=== PATIENT | male | born 1970 | race Caucasian/White ===

== ENCOUNTER 2017-10-12 10:15 | Emergency (ER) | payer MEDICARE, MEDICAID ==
[~2017-10-12] VITALS: Ht 198.1 cm; Wt 107.4 kg
[~2017-10-12 10:15] MED LIST: NO HOME MEDS
[2017-10-12 10:17] VITALS: BP 127/81
== END 2017-10-12 10:46 | disposition home or self-care (01) ==
LOC: ER 10:15
DX: T23.012D Burn of unspecified degree of left thumb (nail), subsequent encounter (principal); T31.0 Burns involving less than 10% of body surface; K12.0 Recurrent oral aphthae; F12.10 Cannabis abuse, uncomplicated; F15.10 Other stimulant abuse, uncomplicated; F14.10 Cocaine abuse, uncomplicated; F11.10 Opioid abuse, uncomplicated; Z59.0 Homelessness; X08.8XXD Exposure to other specified smoke, fire and flames, subsequent encounter
CPT/HCPCS: 99281

== ENCOUNTER 2018-01-05 14:38 | Emergency (ER) | payer MEDICARE, MEDICAID ==
[~2018-01-05] VITALS: Ht 686.1 cm; Wt 100.0 kg
[2018-01-05 15:35] LABS: BASOPHILS % (AUTO) 0.5 % (0-1); EOSINOPHILS # (AUTO) 0.4 X10'3 (0-0.9); HEMATOCRIT 43.5 % (42.0-52.0); HEMOGLOBIN 15.1 g/dl (14.0-17.9); LYMPHOCYTES # (AUTO) 2.1 X10'3 (1.1-4.8); LYMPHOCYTES % (AUTO) 23.9 % (21-51); MEAN CORPUSCULAR HEMOGLOBIN 30.4 PG (27.0-31.0); MEAN CORPUSCULAR HGB CONC 34.7 % (33.0-36.5); MEAN CORPUSCULAR VOLUME 87.6 FL (78-98); MEAN PLATELET VOLUME 7.4 FL (7.4-10.4); MONOCYTES # (AUTO) 0.6 X10'3 (0-0.9); MONOCYTES % (AUTO) 6.8 % (2-12); NEUTROPHILS # (AUTO) 5.8 X10'3 (1.8-7.7); NEUTROPHILS % (AUTO) 64.8 % (42-75); PLATELET COUNT 325 X10'3 (140-440); RED BLOOD COUNT 4.97 X10'6 (4.70-6.10); RED CELL DISTRIBUTION WIDTH 14.5 % (11.5-14.5)
[2018-01-05 15:38] LABS: ALANINE AMINOTRANSFERASE 32 U/L (12-78); ALBUMIN 3.8 G/DL (3.4-5.0); ALBUMIN/GLOBULIN RATIO 1.3 (1.1-1.5); ALKALINE PHOSPHATASE 51 IU/L (46-116); ANION GAP 5 (8-16); ASPARTATE AMINO TRANSFERASE 16 U/L (10-37); BILIRUBIN,TOTAL 0.5 MG/DL (0.1-1.0); BLOOD UREA NITROGEN 22 MG/DL (7-18); BUN/CREATININE RATIO 22.4 (5.4-32.0); CALCIUM 8.5 MG/DL (8.5-10.1); CHLORIDE 104 MMOL/L (99-107); CREATININE 0.98 MG/DL (0.60-1.10); ETHANOL < 0.010 GM/DL (0.0-0.010); GLUCOSE 116 MG/DL (70-104); POTASSIUM 3.5 MMOL/L (3.5-5.1); SODIUM 138 MMOL/L (135-145); TOTAL CARBON DIOXIDE 28.7 MMOL/L (24-32); TOTAL PROTEIN 6.8 G/DL (6.4-8.2); eGFR 82 ML/MIN
[2018-01-05 16:31] LABS: URINE AMPHETAMINE SCREEN POSITIVE (Neg); URINE BARBITUATE SCREEN NEGATIVE (Neg); URINE BENZODIAZEPINES SCREEN NEGATIVE (Neg); URINE CANNABINOID SCREEN POSITIVE (Neg); URINE COCAINE SCREEN NEGATIVE (Neg); URINE METHADONE SCREEN NEGATIVE (Neg); URINE OPIATE SCREEN NEGATIVE (Neg); URINE PHENCYCLIDINE SCREEN NEGATIVE (Neg)
[2018-01-06] MEDS: diazepam 5mg tablet PO SCH ×2 (16:51→20:15)
[2018-01-07] MEDS: diazepam 5mg tablet PO SCH ×2 (08:14→13:00)
[2018-01-07] MEDS ORDERED: nicotine 21mg patch - 24 hr TD ONE (08:45)
[2018-01-07 19:45] VITALS: BP 109/71
== END 2018-01-07 19:49 ==
LOC: ER 14:39
DX: F41.9 Anxiety disorder, unspecified (principal); F31.9 Bipolar disorder, unspecified; R45.851 Suicidal ideations; F12.90 Cannabis use, unspecified, uncomplicated; F15.90 Other stimulant use, unspecified, uncomplicated; F14.90 Cocaine use, unspecified, uncomplicated; F11.90 Opioid use, unspecified, uncomplicated; Z59.0 Homelessness
CPT/HCPCS: 36415; 80053; 80305; 80320; 85025; 99285

== ENCOUNTER 2018-05-11 18:30 | Emergency (ER) | payer MEDICARE, MEDICAID ==
[~2018-05-11] VITALS: Ht 198.1 cm; Wt 9.6 kg
[2018-05-11 18:41] VITALS: BP 139/84
== END 2018-05-11 19:46 | disposition home or self-care (01) ==
LOC: ER 18:30
DX: R45.851 Suicidal ideations (principal); F41.9 Anxiety disorder, unspecified; F31.9 Bipolar disorder, unspecified; F12.90 Cannabis use, unspecified, uncomplicated; F15.90 Other stimulant use, unspecified, uncomplicated; F11.90 Opioid use, unspecified, uncomplicated; F14.90 Cocaine use, unspecified, uncomplicated; Z59.0 Homelessness
CPT/HCPCS: 99284

== ENCOUNTER 2018-06-26 15:22 | Emergency (ER) | payer MEDICARE, MEDICAID ==
[~2018-06-26] VITALS: Ht 195.6 cm; Wt 95.4 kg
[2018-06-26] MEDS ORDERED: LORA0.5T PO (16:01)
[2018-06-26] MEDS ORDERED: AMPH20CA11 PO (16:01)
[2018-06-26 16:10] LABS: BASOPHILS # (AUTO) 0.1 X10'3 (0-0.2); BASOPHILS % (AUTO) 0.6 % (0-1); EOSINOPHILS # (AUTO) 0.1 X10'3 (0-0.9); EOSINOPHILS % (AUTO) 1.5 % (0-6); HEMATOCRIT 42.2 % (42.0-52.0); HEMOGLOBIN 14.1 g/dl (14.0-17.9); LYMPHOCYTES # (AUTO) 1.8 X10'3 (1.1-4.8); LYMPHOCYTES % (AUTO) 18.4 % (21-51); MEAN CORPUSCULAR HEMOGLOBIN 29.6 PG (27.0-31.0); MEAN CORPUSCULAR HGB CONC 33.5 % (33.0-36.5); MEAN CORPUSCULAR VOLUME 88.4 FL (78-98); MEAN PLATELET VOLUME 7.3 FL (7.4-10.4); MONOCYTES # (AUTO) 0.4 X10'3 (0-0.9); MONOCYTES % (AUTO) 4.3 % (2-12); NEUTROPHILS # (AUTO) 7.3 X10'3 (1.8-7.7); NEUTROPHILS % (AUTO) 75.2 % (42-75); PLATELET COUNT 430 X10'3 (140-440); RED BLOOD COUNT 4.78 X10'6 (4.70-6.10); RED CELL DISTRIBUTION WIDTH 13.6 % (11.5-14.5); WHITE BLOOD COUNT 9.7 X10'3 (4.5-11.0)
[2018-06-26 16:20] LABS: ALANINE AMINOTRANSFERASE 32 U/L (12-78); ALBUMIN 3.6 G/DL (3.4-5.0); ALBUMIN/GLOBULIN RATIO 1.1 (1.1-1.5); ALKALINE PHOSPHATASE 65 IU/L (46-116); ANION GAP 9 (8-16); ASPARTATE AMINO TRANSFERASE 19 U/L (10-37); BILIRUBIN,TOTAL 0.3 MG/DL (0.1-1.0); BLOOD UREA NITROGEN 14 MG/DL (7-18); BUN/CREATININE RATIO 20.6 (5.4-32.0); CALCIUM 8.2 MG/DL (8.5-10.1); CHLORIDE 103 MMOL/L (99-107); CREATININE 0.68 MG/DL (0.60-1.10); GLUCOSE 104 MG/DL (70-104); POTASSIUM 3.8 MMOL/L (3.5-5.1); SODIUM 139 MMOL/L (135-145); TOTAL CARBON DIOXIDE 26.7 MMOL/L (24-32); TOTAL PROTEIN 6.9 G/DL (6.4-8.2); eGFR > 90 ML/MIN
[2018-06-26 16:24] LABS: CLARITY,URINE CLEAR (Clear); COLOR,URINE YELLOW (Yellow); GLUCOSE, URINE NEGATIVE (Neg); KETONES,URINE NEGATIVE (Neg); LEUKOCYTE ESTERASE ,URINE NEGATIVE (Neg); NITRITES, URINE NEGATIVE (Neg); OCCULT BLOOD,URINE TRACE-INTACT (Neg); PROTEIN,URINE NEGATIVE (Neg); UROBILINOGEN,URINE 0.2 E.U/dL (0.2-1.0)
[2018-06-26 16:26] LABS: URINE AMPHETAMINE SCREEN NEGATIVE (Neg); URINE BARBITUATE SCREEN NEGATIVE (Neg); URINE BENZODIAZEPINES SCREEN NEGATIVE (Neg); URINE CANNABINOID SCREEN POSITIVE (Neg); URINE COCAINE SCREEN NEGATIVE (Neg); URINE METHADONE SCREEN NEGATIVE (Neg); URINE OPIATE SCREEN NEGATIVE (Neg); URINE PHENCYCLIDINE SCREEN NEGATIVE (Neg)
[2018-06-26 16:28] LABS: UA COLLECTION TYPE CLN CATCH MIDSTREAM
[2018-06-26 16:30] LABS: BACTERIA,URINE NONE SEEN /HPF (Neg); RBC,URINE NONE SEEN /HPF (0-2); SQUAMOUS EPITHELIAL CELL,UR FEW /LPF (FEW); WBC,URINE 0-4 /HPF (0-4)
[2018-06-26 16:30] LABS: ETHANOL < 0.010 GM/DL (0.0-0.010)
--- NOTE | 2018-06-26 17:03 | NUR ---
Telepsych evaluating patient.
[2018-06-26] MEDS: LORazepam 0.5 MG tablet PO PRN (17:11)
--- NOTE | 2018-06-26 17:18 | NUR ---
Patient tearful and states he just wants to leave and kill himself. RN gave patient an Ativan to help calm him. Telepsych Doc called RN and is recommending placement on 5150. Continue to monitor.
[2018-06-26 17:22] VITALS: BP 148/96
[2018-06-26] MEDS ORDERED: ziprasidone IM 20mg inj **IM only IM PRN (17:40)
[2018-06-26] MEDS: LORazepam 1 MG tablet PO PRN (19:27)
--- NOTE | 2018-06-26 19:35 | NUR ---
pt anxious and unable to sleep. ativan 2mg po given
--- NOTE | 2018-06-26 20:53 | NUR ---
CONCHIS FROM [facility] CALLED. PT WILL BE ADMITTED UP STAIRS AND TO PLEASE DISCHARGE IN ER. ALSO, ADVISE THE PATIENT WILL NOT BE GETTING ATIVAN REGULARLY AND WILL BE TRYING OTHER MEDS.
--- NOTE | 2018-06-26 20:55 | NUR ---
EXPLAINED TO PATIENT WILL BE ADMITTED UP STAIRS TO [facility]. ALSO WILL BE TAPERING OFF ATIVAN AND GIVING OTHER MEDS. PT STATED, "ok". TOOK IT WELL, PT CALM
--- NOTE | 2018-06-26 20:57 | NUR ---
Client to be admitted to [facility] for suicidal ideation per Dr. Rizzo.
== END 2018-06-26 21:01 ==
LOC: ER 15:22
DX: R45.851 Suicidal ideations (principal); F31.9 Bipolar disorder, unspecified; F15.10 Other stimulant abuse, uncomplicated; F41.9 Anxiety disorder, unspecified; F12.90 Cannabis use, unspecified, uncomplicated; F14.90 Cocaine use, unspecified, uncomplicated; F11.90 Opioid use, unspecified, uncomplicated; Z59.0 Homelessness; Z79.899 Other long term (current) drug therapy
CPT/HCPCS: 36415; 80053; 80305; 80320; 81001; 84443; 85025; 99285

== ENCOUNTER 2018-06-26 20:45 | Inpatient (IN) | payer MEDICARE, MEDICAID | END 2018-07-07 12:25 | disposition still patient (30) | LOC: ADULT MH 06-29 16:55 | DX: R45.851 Suicidal ideations (principal); F32.9 Major depressive disorder, single episode, unspecified ==

== ENCOUNTER 2018-07-14 18:09 | Emergency (ER) | payer MEDICARE, MEDICAID ==
[~2018-07-14] VITALS: Ht 198.1 cm; Wt 101.3 kg
[~2018-07-14 18:09] MED LIST changes: +HYDR-3686 PO; +LURA20TA PO; -NO HOME MEDS; +TRAZ-218 PO
[2018-07-14 19:25] LABS: URINE AMPHETAMINE SCREEN POSITIVE (Neg); URINE BARBITUATE SCREEN NEGATIVE (Neg); URINE BENZODIAZEPINES SCREEN NEGATIVE (Neg); URINE CANNABINOID SCREEN NEGATIVE (Neg); URINE COCAINE SCREEN NEGATIVE (Neg); URINE METHADONE SCREEN NEGATIVE (Neg); URINE OPIATE SCREEN NEGATIVE (Neg); URINE PHENCYCLIDINE SCREEN NEGATIVE (Neg)
[2018-07-14 19:34] LABS: BASOPHILS % (AUTO) 0.3 % (0-1); EOSINOPHILS # (AUTO) 0.2 X10'3 (0-0.9); EOSINOPHILS % (AUTO) 1.6 % (0-6); HEMATOCRIT 42.3 % (42.0-52.0); HEMOGLOBIN 14.5 g/dl (14.0-17.9); LYMPHOCYTES # (AUTO) 1.2 X10'3 (1.1-4.8); LYMPHOCYTES % (AUTO) 10.6 % (21-51); MEAN CORPUSCULAR HGB CONC 34.3 % (33.0-36.5); MEAN CORPUSCULAR VOLUME 87.6 FL (78-98); MEAN PLATELET VOLUME 7.2 FL (7.4-10.4); MONOCYTES # (AUTO) 0.7 X10'3 (0-0.9); MONOCYTES % (AUTO) 6.2 % (2-12); NEUTROPHILS # (AUTO) 9.5 X10'3 (1.8-7.7); NEUTROPHILS % (AUTO) 81.3 % (42-75); PLATELET COUNT 363 X10'3 (140-440); RED BLOOD COUNT 4.84 X10'6 (4.70-6.10); RED CELL DISTRIBUTION WIDTH 15.1 % (11.5-14.5); WHITE BLOOD COUNT 11.7 X10'3 (4.5-11.0)
[2018-07-14 19:37] LABS: ALANINE AMINOTRANSFERASE 52 U/L (12-78); ALBUMIN 4.1 G/DL (3.4-5.0); ALBUMIN/GLOBULIN RATIO 1.1 (1.1-1.5); ALKALINE PHOSPHATASE 64 IU/L (46-116); ANION GAP 12 (8-16); ASPARTATE AMINO TRANSFERASE 50 U/L (10-37); BILIRUBIN,TOTAL 0.9 MG/DL (0.1-1.0); BLOOD UREA NITROGEN 13 MG/DL (7-18); BUN/CREATININE RATIO 15.5 (5.4-32.0); CALCIUM 9.2 MG/DL (8.5-10.1); CHLORIDE 100 MMOL/L (99-107); CREATININE 0.84 MG/DL (0.60-1.10); ETHANOL < 0.010 GM/DL (0.0-0.010); GLUCOSE 98 MG/DL (70-104); POTASSIUM 3.6 MMOL/L (3.5-5.1); SODIUM 139 MMOL/L (135-145); TOTAL PROTEIN 7.7 G/DL (6.4-8.2); eGFR > 90 ML/MIN
--- NOTE | 2018-07-14 19:48 | NUR ---
PT upto restroom 8x in first hour of shift. When asked about it, PT begins talking about how "he's not a bad tulio and doesn't want to go to [facility] for selling his meds." PT admits to taking too many Aderall and is up to the RR to masterbate because Aderall makes him "horny". PT observed rubbing nose constantly. When asked about it, PT states; "I fucking hate it."
--- NOTE | 2018-07-14 20:00 | NUR ---
ALL ASSESSMENTS DONE ON PT, NOT ABLE TO DOCUMENT UNTIL LATER TIME.
[2018-07-14] MEDS ORDERED: TRAZ300T2 PO (20:07)
[2018-07-14] MEDS ORDERED: LURA40TA3 PO (20:09)
[2018-07-14] MEDS ORDERED: LURA60TA2 PO (20:09)
[2018-07-14] MEDS ORDERED: HYDR-3686 PO (20:10)
[2018-07-14] MEDS ORDERED: hydrOXYzine 25 MG tablet PO PRN (20:20)
[2018-07-14] MEDS ORDERED: traZODone 150mg tablet PO SCH (21:00)
[2018-07-14] MEDS ORDERED: lurasidone 20mg tablet PO SCH (21:00)
[2018-07-14] MEDS ORDERED: lurasidone 60mg tablet PO SCH (21:00)
--- NOTE | 2018-07-14 21:53 | NUR ---
[facility] contacted for telepsych. Telepsych camera 1 set up awaiting call from [facility].
--- NOTE | 2018-07-14 21:54 | NUR ---
PT VERY PARANOID WHILE GIVING HS MEDS, WANTED TO "THINK ABOUT IT". FEELING IF STAFF WAS GOING TO POISION HIM AND FEELING VERY PARANOID. EXPLAINED THAT MEDS WERE HIS USUAL HS MED AND THEY WOULD HELP WITH THE PARANOIA. ALSO EXPLAINED THAT HE IS HERE TO KEEP HIMSELF SAFE AND THAT HIS REGULAR MEDS WOULD HELP HIM SLEEP TONIGHT. ADMITTED TO TAKING TOO MUCH OF HIS ADDERALL TODAY.
--- NOTE | 2018-07-14 22:01 | NUR ---
Packet sent to [facility].
[2018-07-14] MEDS ORDERED: diphenhydrAMINE 50 mg/ml inj IM ONE (22:10)
[2018-07-14] MEDS ORDERED: OLANZapine **IM** 10 mg inj. IM ONE (22:10)
[2018-07-14] MEDS ORDERED: LORazepam 2 mg/ml vial IM ONE (22:10)
[2018-07-14] MEDS ORDERED: diphenhydrAMINE 50 mg/ml inj ONE (22:12)
--- NOTE | 2018-07-14 22:26 | NUR ---
PT CONTINUING TO BE PARANOID, FEELS LIKE STAFF IS GOING TO HURT HIM. WANDERING IN DEPT AND DISRUPTING OTHER PTS. ORDERS RECEIVED FROM DR ROME FOR AGGITATION.
[2018-07-14 23:08] LABS: CLARITY,URINE CLEAR (Clear); COLOR,URINE YELLOW (Yellow); GLUCOSE, URINE NEGATIVE (Neg); KETONES,URINE NEGATIVE (Neg); LEUKOCYTE ESTERASE ,URINE NEGATIVE (Neg); NITRITES, URINE NEGATIVE (Neg); OCCULT BLOOD,URINE MODERATE (Neg); PH,URINE 6.5 (4.8-8.0); PROTEIN,URINE TRACE mg/dl (Neg); UA COLLECTION TYPE CLN CATCH MIDSTREAM; UROBILINOGEN,URINE 0.2 E.U/dL (0.2-1.0)
[2018-07-14 23:20] LABS: BACTERIA,URINE NONE SEEN /HPF (Neg); MUCUS STRANDS MODERATE /LPF (Neg); SPERM MODERATE /HPF (NEGATIVE); SQUAMOUS EPITHELIAL CELL,UR NONE SEEN /LPF (FEW); WBC,URINE 0-4 /HPF (0-4)
--- NOTE | 2018-07-15 00:01 | NUR ---
ATARAX GIVEN FOR CONTINUED AGGITATION, HAS TO BE CONSTANTLY REDIRECTED TO GO BACK TO BED.
--- NOTE | 2018-07-15 01:06 | NUR ---
TELE PSYCH IN PROCESS.
--- NOTE | 2018-07-15 02:03 | NUR ---
TELE PSYCH MD RECOMMENDS DC, PLAN TO DC IN AM AFTER BREAKFAST DUE TO MEDS GIVEN EARLIER IN EVENING.
--- NOTE | 2018-07-15 02:46 | NUR ---
PT NOW SLEEPING.
--- NOTE | 2018-07-15 07:00 | NUR ---
Pt lying in bed, appears to be sleeping.
--- NOTE | 2018-07-15 08:38 | NUR ---
Pt has discharge orders, he is endorsing active SI, states that he will kill himself when he leaves, he will cut himself with a razor blade, ER notified, he will come and reassess the pt.
--- NOTE | 2018-07-15 09:03 | NUR ---
Pt is now stating that he is not going to kill himself, that he wants to leave and go do some dope and have some fun then go stay at the [facility]. Had a conversation with the patient about the wisdom of his choices, he states that if his symptoms come back, if he feels worse (becomes suicidal again) he will return to the ER.
--- NOTE | 2018-07-15 09:05 | NUR ---
Notifed ER MD of pt's current statements and desire to be discharged.
--- NOTE | 2018-07-15 09:15 | NUR ---
Pt discharged, provided with a bus pass, a sack lunch, discharge paperwork with list of community resources, pt had warm clothes of his own, all belongings and meds returned, escorted out of the building by security.
[2018-07-15 09:22] VITALS: BP 106/64
== END 2018-07-15 09:15 | disposition home or self-care (01) ==
LOC: ER 18:09
DX: R45.851 Suicidal ideations (principal); Z76.5 Malingerer [conscious simulation]; F41.9 Anxiety disorder, unspecified; F31.9 Bipolar disorder, unspecified; F12.90 Cannabis use, unspecified, uncomplicated; F15.90 Other stimulant use, unspecified, uncomplicated; F14.90 Cocaine use, unspecified, uncomplicated; F11.90 Opioid use, unspecified, uncomplicated; Z79.899 Other long term (current) drug therapy; Z59.0 Homelessness
CPT/HCPCS: 36415; 80053; 80305; 80320; 81001; 85025; 96372; 99284; J1200; J2060; Q0177

== ENCOUNTER 2018-07-15 14:02 | Emergency (ER) | payer MEDICARE, MEDICAID ==
[~2018-07-15] VITALS: Ht 198.1 cm; Wt 100.0 kg
[~2018-07-15 14:02] MED LIST changes: -LURA20TA PO; +LURA40TA3 PO; +LURA60TA2 PO; -TRAZ-218 PO; +TRAZ300T2 PO
[2018-07-15 14:14] VITALS: BP 114/70
--- NOTE | 2018-07-15 14:29 | NUR ---
ATTEMPTED TO CALL PATIENT BACK FOR EKG AND PATIENT WAS NOT IN LOBBY
--- NOTE | 2018-07-15 14:48 | NUR ---
Called pt for EKG again but not in lobby.
== END 2018-07-15 15:20 | disposition home or self-care (01) ==
LOC: ER 14:03
DX: F15.10 Other stimulant abuse, uncomplicated (principal); R07.89 Other chest pain; F12.90 Cannabis use, unspecified, uncomplicated; F14.90 Cocaine use, unspecified, uncomplicated; F11.90 Opioid use, unspecified, uncomplicated; Z79.899 Other long term (current) drug therapy; Z59.0 Homelessness
CPT/HCPCS: 93005; 99283

== ENCOUNTER 2018-09-29 09:29 | Emergency (ER) | payer MEDICARE, MEDICAID ==
[~2018-09-29] VITALS: Ht 198.1 cm; Wt 117.3 kg
--- NOTE | 2018-09-29 09:56 | NUR ---
patient placed in a bed and put into green scrubs, urine sample requested and given by patient. Patient appears stable and calm at the moment
[2018-09-29 10:22] LABS: CLARITY,URINE CLEAR (Clear); COLOR,URINE YELLOW (Yellow); GLUCOSE, URINE NEGATIVE (Neg); KETONES,URINE NEGATIVE (Neg); LEUKOCYTE ESTERASE ,URINE NEGATIVE (Neg); NITRITES, URINE NEGATIVE (Neg); OCCULT BLOOD,URINE NEGATIVE (Neg); PROTEIN,URINE NEGATIVE (Neg); UA COLLECTION TYPE CLN CATCH MIDSTREAM; UROBILINOGEN,URINE 0.2 E.U/dL (0.2-1.0)
[2018-09-29 10:43] LABS: URINE AMPHETAMINE SCREEN NEGATIVE (Neg); URINE BARBITUATE SCREEN NEGATIVE (Neg); URINE BENZODIAZEPINES SCREEN POSITIVE (Neg); URINE CANNABINOID SCREEN NEGATIVE (Neg); URINE COCAINE SCREEN NEGATIVE (Neg); URINE METHADONE SCREEN NEGATIVE (Neg); URINE OPIATE SCREEN NEGATIVE (Neg); URINE PHENCYCLIDINE SCREEN NEGATIVE (Neg)
[2018-09-29 11:11] LABS: BASOPHILS % (AUTO) 0.6 % (0-1); EOSINOPHILS # (AUTO) 0.2 X10'3 (0-0.9); HEMATOCRIT 43.4 % (42.0-52.0); HEMOGLOBIN 14.3 g/dl (14.0-17.9); LYMPHOCYTES # (AUTO) 1.8 X10'3 (1.1-4.8); LYMPHOCYTES % (AUTO) 21.6 % (21-51); MEAN CORPUSCULAR HEMOGLOBIN 29.5 PG (27.0-31.0); MEAN CORPUSCULAR VOLUME 89.4 FL (78-98); MEAN PLATELET VOLUME 6.9 FL (7.4-10.4); MONOCYTES # (AUTO) 0.6 X10'3 (0-0.9); MONOCYTES % (AUTO) 7.7 % (2-12); NEUTROPHILS # (AUTO) 5.5 X10'3 (1.8-7.7); NEUTROPHILS % (AUTO) 67.1 % (42-75); PLATELET COUNT 316 X10'3 (140-440); RED BLOOD COUNT 4.86 X10'6 (4.70-6.10); RED CELL DISTRIBUTION WIDTH 14.3 % (11.5-14.5); WHITE BLOOD COUNT 8.1 X10'3 (4.5-11.0)
[2018-09-29 11:27] LABS: ALANINE AMINOTRANSFERASE 37 U/L (12-78); ALBUMIN 3.5 G/DL (3.4-5.0); ALBUMIN/GLOBULIN RATIO 1.2 (1.1-1.5); ALKALINE PHOSPHATASE 47 IU/L (46-116); ANION GAP 4 (8-16); ASPARTATE AMINO TRANSFERASE 16 U/L (10-37); BILIRUBIN,TOTAL 0.3 MG/DL (0.1-1.0); BLOOD UREA NITROGEN 13 MG/DL (7-18); BUN/CREATININE RATIO 13.7 (5.4-32.0); CALCIUM 8.8 MG/DL (8.5-10.1); CHLORIDE 107 MMOL/L (99-107); CREATININE 0.95 MG/DL (0.60-1.10); GLUCOSE 88 MG/DL (70-104); POTASSIUM 4.1 MMOL/L (3.5-5.1); SODIUM 141 MMOL/L (135-145); TOTAL CARBON DIOXIDE 29.7 MMOL/L (24-32); TOTAL PROTEIN 6.4 G/DL (6.4-8.2); eGFR 85 ML/MIN
[2018-09-29 11:36] LABS: ETHANOL < 0.010 GM/DL (0.0-0.010)
[2018-09-29] MEDS ORDERED: LORA2TAB PO (13:55)
[2018-09-29] MEDS ORDERED: LITH600C PO (13:55)
[2018-09-29] MEDS ORDERED: RISP2TAB3 PO (13:55)
[2018-09-29] MEDS ORDERED: LITH150C8 PO (13:55)
[2018-09-29] MEDS ORDERED: TRAZ-219 PO (13:55)
[2018-09-29] MEDS ORDERED: HYDR-3686 PO (13:55)
[2018-09-29] MEDS ORDERED: VAL5T PO ×2 (13:55)
[2018-09-29] MEDS ORDERED: VILA40TA PO (13:58)
[2018-09-29] MEDS ORDERED: LITH300C PO (14:02)
[2018-09-29] MEDS ORDERED: BENZ1TAB7 PO (14:02)
[2018-09-29 17:33] VITALS: BP 127/80
== END 2018-09-29 17:55 | disposition home or self-care (01) ==
LOC: ER 09:29
DX: T42.4X2A Poisoning by benzodiazepines, intentional self-harm, initial encounter (principal); F41.9 Anxiety disorder, unspecified; F32.9 Major depressive disorder, single episode, unspecified; F12.10 Cannabis abuse, uncomplicated; F15.10 Other stimulant abuse, uncomplicated; Z59.0 Homelessness; Y92.89 Other specified places as the place of occurrence of the external cause
CPT/HCPCS: 36415; 80053; 80305; 80320; 81003; 84443; 85025; 99284

== ENCOUNTER 2018-10-23 15:18 | Emergency (ER) | payer MEDICARE, MEDICAID ==
[~2018-10-23] VITALS: Ht 198.1 cm; Wt 93.0 kg
[~2018-10-23 15:18] MED LIST changes: +BENZ1TAB7 PO; +LITH150C8 PO; +LITH300C PO; +LORA2TAB PO; -LURA40TA3 PO; -LURA60TA2 PO; +RISP2TAB3 PO; +TRAZ-219 PO; -TRAZ300T2 PO; +VAL5T PO; +VILA40TA PO
[2018-10-23 15:22] VITALS: BP 117/81
== END 2018-10-23 16:28 | disposition left against medical advice (07) ==
LOC: ER 15:18
DX: F10.129 Alcohol abuse with intoxication, unspecified (principal); F31.9 Bipolar disorder, unspecified; F41.9 Anxiety disorder, unspecified; F12.90 Cannabis use, unspecified, uncomplicated; F15.90 Other stimulant use, unspecified, uncomplicated; F11.90 Opioid use, unspecified, uncomplicated; Z59.0 Homelessness; Z79.899 Other long term (current) drug therapy
CPT/HCPCS: 99283

== ENCOUNTER 2019-02-05 10:16 | Emergency (ER) | payer MEDICARE, MEDICAID | END 2019-02-05 11:33 | disposition left against medical advice (07) | LOC: ER 10:17 | DX: Z00.8 Encounter for other general examination (principal); Z53.21 Procedure and treatment not carried out due to patient leaving prior to being seen by health care provider ==

== ENCOUNTER 2019-02-05 20:20 | Emergency (ER) | payer MEDICARE, MEDICAID | END 2019-02-05 21:03 | disposition left against medical advice (07) | LOC: ER 20:21 | DX: R45.851 Suicidal ideations (principal); Z53.21 Procedure and treatment not carried out due to patient leaving prior to being seen by health care provider ==

== ENCOUNTER 2019-02-06 18:11 | Emergency (ER) | payer MEDICARE, MEDICAID ==
[~2019-02-06] VITALS: Ht 195.6 cm; Wt 100.9 kg
[2019-02-06 18:31] VITALS: BP 124/80
== END 2019-02-06 20:42 | disposition left against medical advice (07) ==
LOC: ER 18:12
DX: R45.851 Suicidal ideations (principal); Z53.21 Procedure and treatment not carried out due to patient leaving prior to being seen by health care provider

== ENCOUNTER 2019-02-06 21:01 | Emergency (ER) | payer MEDICARE, MEDICAID ==
[~2019-02-06] VITALS: Ht 195.6 cm; Wt 94.0 kg
--- NOTE | 2019-02-06 21:14 | NUR ---
ROBBY FERRIS CONCERNED THAT THIS IS HIS 3RD OR 4TH VISIT FOR MENTAL HEALTH EXAM AND OR SI. ROBBY FERRIS SUGGESTED [facility] BE CALLED TO PICK HIM UP; I DEFERED HIM TO THE SERVICE PROMOTER SALESPERSON ELSA. NO TRIAGE WAS DONE; THE PATIENT IS ASSIGNED A LEVEL 5
--- NOTE | 2019-02-06 21:14 | NUR ---
PT CHECKED INTO ED REGISTRATION AND IMMEDIATELY LEFT THE HOSPITAL BEFORE TRIAGE. I CONTACTED [facility] AND ASKED THEM TO SEND AN ALERT OUT TO OFFICERS TO LOOK OUT FOR HIM DUE TO HIS COUNSELOR SENDING HIM TO THE ED WITH CONCERNS FOR HIS MENTAL HEALTH AND RECENTLY DRUG USE.
--- NOTE | 2019-02-06 21:34 | NUR ---
HE SAID HIS COUNSELOR MADE HIM COME IN, PT DENIES SI OR HI.
[2019-02-06 21:52] LABS: BASOPHILS # (AUTO) 0.1 X10'3 (0-0.2); BASOPHILS % (AUTO) 0.7 % (0-1); EOSINOPHILS # (AUTO) 0.2 X10'3 (0-0.9); EOSINOPHILS % (AUTO) 1.5 % (0-6); HEMATOCRIT 41.6 % (42.0-52.0); HEMOGLOBIN 14.2 g/dl (14.0-17.9); LYMPHOCYTES # (AUTO) 2.2 X10'3 (1.1-4.8); LYMPHOCYTES % (AUTO) 22.3 % (21-51); MEAN CORPUSCULAR HEMOGLOBIN 30.2 PG (27.0-31.0); MEAN CORPUSCULAR VOLUME 88.8 FL (78-98); MEAN PLATELET VOLUME 7.3 FL (7.4-10.4); MONOCYTES # (AUTO) 0.7 X10'3 (0-0.9); MONOCYTES % (AUTO) 6.8 % (2-12); NEUTROPHILS # (AUTO) 6.8 X10'3 (1.8-7.7); NEUTROPHILS % (AUTO) 68.7 % (42-75); PLATELET COUNT 411 X10'3 (140-440); RED BLOOD COUNT 4.69 X10'6 (4.70-6.10); RED CELL DISTRIBUTION WIDTH 14.5 % (11.5-14.5); WHITE BLOOD COUNT 9.9 X10'3 (4.5-11.0)
[2019-02-06 22:10] LABS: ALANINE AMINOTRANSFERASE 31 U/L (12-78); ALBUMIN 3.9 G/DL (3.4-5.0); ALBUMIN/GLOBULIN RATIO 1.2 (1.1-1.5); ALKALINE PHOSPHATASE 56 IU/L (46-116); ANION GAP 7 (8-16); ASPARTATE AMINO TRANSFERASE 25 U/L (10-37); BILIRUBIN,TOTAL 0.6 MG/DL (0.1-1.0); BLOOD UREA NITROGEN 16 MG/DL (7-18); BUN/CREATININE RATIO 16.7 (5.4-32.0); CALCIUM 8.5 MG/DL (8.5-10.1); CHLORIDE 107 MMOL/L (99-107); CREATININE 0.96 MG/DL (0.60-1.10); ETHANOL < 0.010 GM/DL (0.0-0.010); GLUCOSE 97 MG/DL (70-104); SODIUM 143 MMOL/L (135-145); TOTAL CARBON DIOXIDE 28.7 MMOL/L (24-32); TOTAL PROTEIN 7.1 G/DL (6.4-8.2); eGFR 84 ML/MIN
[2019-02-06 22:13] LABS: POTASSIUM 2.9 MMOL/L (3.5-5.1)
[2019-02-06] MEDS ORDERED: potassium Cl 20 mEq SR tablet PO STA (22:14)
--- NOTE | 2019-02-06 22:26 | NUR ---
PT USING RESTROOM AT THIS TIME.
--- NOTE | 2019-02-07 | NUR ---
Patient moved from ED14 to ED8, patient resting comfortably at this time.
--- NOTE | 2019-02-07 00:45 | NUR ---
Patient given sandwich, grahm crackers and juice at this time
--- NOTE | 2019-02-07 01:30 | NUR ---
Patient resting comfortably at this time in direct site of nursing staff
--- NOTE | 2019-02-07 02:30 | NUR ---
Patient continues to rest comfortably in direct site of nursing staff
--- NOTE | 2019-02-07 03:30 | NUR ---
Patient resting comfortably, in direct site of nursing staff
[2019-02-07] MEDS: LORazepam 1 MG tablet PO PRN ×3 (04:29→18:57)
--- NOTE | 2019-02-07 04:31 | NUR ---
Patient requesting Ativan because he is "tripping the fuck out". Given 1mg Ativan PO per MD order at this time. While administering medication patient asked "Meth is bad huh?" Patient educated to negative affects of methamphetamine.
--- NOTE | 2019-02-07 05:30 | NUR ---
Patient resting comfortably at this time
--- NOTE | 2019-02-07 06:43 | NUR ---
ATTEMPTED TO COLLECT URINE SAMPLE FOR UA WITH NO SUCCESS. PT. OFFERED WATER AT THIS TIME.
--- NOTE | 2019-02-07 07:45 | NUR ---
URINE SAMPLE COLLECTED AT 0730 FOR UA. PT. CURRENTLY IN BED, RESTING.
[2019-02-07 07:54] LABS: URINE AMPHETAMINE SCREEN POSITIVE (Neg); URINE BARBITUATE SCREEN NEGATIVE (Neg); URINE BENZODIAZEPINES SCREEN NEGATIVE (Neg); URINE CANNABINOID SCREEN NEGATIVE (Neg); URINE COCAINE SCREEN NEGATIVE (Neg); URINE METHADONE SCREEN NEGATIVE (Neg); URINE OPIATE SCREEN NEGATIVE (Neg); URINE PHENCYCLIDINE SCREEN NEGATIVE (Neg)
[2019-02-07 07:57] LABS: CLARITY,URINE CLEAR (Clear); COLOR,URINE YELLOW (Yellow); GLUCOSE, URINE NEGATIVE (Neg); KETONES,URINE NEGATIVE (Neg); LEUKOCYTE ESTERASE ,URINE SMALL (Neg); NITRITES, URINE NEGATIVE (Neg); OCCULT BLOOD,URINE TRACE-INTACT (Neg); PROTEIN,URINE NEGATIVE (Neg)
[2019-02-07 07:58] LABS: UA COLLECTION TYPE CLN CATCH MIDSTREAM
[2019-02-07 08:08] LABS: BACTERIA,URINE FEW /HPF (Neg); MUCUS STRANDS MODERATE /LPF (Neg); RBC,URINE 0-2 /HPF (0-2); SQUAMOUS EPITHELIAL CELL,UR MODERATE /LPF (FEW)
--- NOTE | 2019-02-07 08:20 | NUR ---
PACKET FAXED TO [facility]
--- NOTE | 2019-02-07 08:52 | NUR ---
PT. CONTINUES TO REST IN [facility].
--- NOTE | 2019-02-07 09:24 | NUR ---
PT. EATING BREAKFAST AT THIS TIME.
--- NOTE | 2019-02-07 09:48 | NUR ---
CALLED AND SPOKE WITH RIYA WITH [facility], SHE ASKED TO HAVE [facility] EVALUATE THE PATIENT.
--- NOTE | 2019-02-07 10:58 | NUR ---
PT RESTING ON RIGHT SIDE EYES CLOSED RR EQUAL AND UNLABORED
--- NOTE | 2019-02-07 12:33 | NUR ---
PT UP TO USE RESTROOM AT THIS TIME.NO DISTRESS NOTED.WILL CONT TO MONITOR.
--- NOTE | 2019-02-07 12:45 | NUR ---
PT CAME TO NURSING STATION AND ASKED FOR ANXIETY MEDS ,PT SAID HE IS GOING TO FREAK OUT IF MED IS NOT GIVEN.PT LOOK ANXIOUS GET UP FROM BED GO TO RESTROOM COME BACK QUICKLY TO BED AND STAY UP IN BED.
--- NOTE | 2019-02-07 13:14 | NUR ---
PT HAS FINISHED HIS LUNCH,MED GIVEN BY LAWANDA OROURKE,NO DISTRESS NOTED ,WILL CONT TO MONITOR.
--- NOTE | 2019-02-07 14:29 | NUR ---
[facility] STAFF WRITER AT BEDSIDE TO EVALUATE THE PT.
--- NOTE | 2019-02-07 14:30 | NUR ---
PT MED REC DONE TAKEN TO DR MONTEJO TO REVIEW AND ALSO INFORMED THAT PT DOES NOT WANT TO TAKE ANY OF THIS MEDICATION . PER MD" I WILL DO IT LATER SHE HAS SOMETHING IMPORTANT GOING ON". DR MONTEJO SAID SHE WILL COME BACK TO DO THIS .INFORMED THAT PT MED REC WILL BE IN CHART.
--- NOTE | 2019-02-07 15:28 | NUR ---
pt sleeping in bed .respiration rate normal and unlabored no distress noted.will cont to monitor.
--- NOTE | 2019-02-07 16:36 | NUR ---
spoke to [facility] outboard motor mechanic abt pt plan ,as per outboard motor mechanic pt will be on mental bunny hold.
--- NOTE | 2019-02-07 18:45 | NUR ---
pt came to nursing station ans said "what am doing here ? i want to leave ".pt informed that you are on hold can't leave.pt agigitated and went back to bed.
--- NOTE | 2019-02-07 19:04 | NUR ---
pt lorazepam 1mg po q6 hr for anxiety and agitation as prescribed by md given as pt was agitated and anxious .pt was talking aloud with the chair and couch maker and saying no one likes me .pt started crying and said "no one one likes me no one in hospitals not even my son".psychological support given to the pt ,told to take deep breath ,focus on happy place .pt bursted out in tears .also requested for nictonie patch informed to ask the md abt it pt said he smoke 2 pack of cigratte.
--- NOTE | 2019-02-07 19:13 | NUR ---
spoke to lexie perez regarding nicotine patch and also informed that pt smoke 2 pck daily.as per lexie perez order nicotine patch 21mg .will follow the orders.
[2019-02-07] MEDS ORDERED: nicotine 21mg patch - 24 hr TD ONE (19:15)
--- NOTE | 2019-02-07 21:00 | NUR ---
ROBBY HUNTER INFORMED ABOUT THE PT MED REC IS DONE SHOWED TO DR MONTEJO TO REVIEW IT AND ALSO INFORMED THAT PT IS REFUSING TO TAKE MEDS AND DR MONTEJO NEVER GOT BACK TO IT SHEILA WHAT SHD BE DONE . ROBBY HUNTER REVIVED THE REC MEDS WILL FAX TO THE PHARMACY.
--- NOTE | 2019-02-07 21:06 | NUR ---
PT REC MEDS LIST FAXED TO THE PHARMACY.
--- NOTE | 2019-02-07 21:31 | NUR ---
CALLED PHARMACY TO CLARIFY WHETHER THEY RECEVIED THE FAXED MED REC. PER PHYLLIS FROM PHARMACY SAID THEY HAVE IT.
[2019-02-07] MEDS ORDERED: LORazepam 1 MG tablet PO PRN (21:45)
[2019-02-07] MEDS: lithium carbonate 300mg SR tablet (LithoBID) PO SCH (22:13)
[2019-02-07] MEDS: hydrOXYzine 25 MG tablet PO SCH (22:14)
[2019-02-07] MEDS: traZODone 50mg tablet PO SCH (22:14)
[2019-02-07] MEDS: risperiDONE 2mg tablet PO SCH (22:14)
[2019-02-07] MEDS: benztropine 1mg tablet PO SCH (22:14)
--- NOTE | 2019-02-07 22:18 | NUR ---
INFORMED THE PT ABOUT THE [facility] MEDS ,ADMINSTRED MEDS PER ORDERS .PT DENIES ANY CONCERN.PT CALM AND COOPERATIVE AT THIS TIME ,WOKE UP FROM SLEEP.
--- NOTE | 2019-02-07 23:00 | NUR ---
Assumed care of patient, received report from Maico WEBBER. Patient in direct site of sitter. Resting comfortably at this time.
[2019-02-08] MEDS: potassium Cl 20 mEq SR tablet PO SCH ×4 (00:52→20:28)
[2019-02-08] MEDS: risperiDONE 2mg tablet PO SCH ×2 (07:46→19:53)
[2019-02-08] MEDS: lithium carbonate 150mg capsule PO SCH (07:46)
[2019-02-08] MEDS: LORazepam 1 MG tablet PO PRN ×2 (08:47→17:41)
--- NOTE | 2019-02-08 08:56 | NUR ---
kvng provided, pt wrote note "Is my family ok" Ativan given, 100 % of breakfast eater.
--- NOTE | 2019-02-08 09:12 | NUR ---
escorted patient to bathroom, states bm. pt to overflow, no nurse available at this time to give report.
--- NOTE | 2019-02-08 10:00 | NUR ---
pt asleep lieing supine, in no apparent distress
--- NOTE | 2019-02-08 11:00 | NUR ---
pt lieing on side, sleeping. In no apparent distress.
--- NOTE | 2019-02-08 13:00 | NUR ---
Pt sitting up in bed eating lunch. Calm and cooperative.
--- NOTE | 2019-02-08 15:00 | NUR ---
Pt sleeping on left side. Respirations even and unlabored.
--- NOTE | 2019-02-08 18:34 | NUR ---
Currently requesting an officer. States, "People are Fing with me." Asked who and patient states, "If i knew I would Fing kick their a." Patient reminded that he is safe here. And encouraged to head to his area and provided additional dinner per request.
[2019-02-08] MEDS: benztropine 1mg tablet PO SCH (20:29)
[2019-02-08] MEDS: lithium carbonate 300mg SR tablet (LithoBID) PO SCH (20:29)
[2019-02-08] MEDS: hydrOXYzine 25 MG tablet PO SCH (20:30)
[2019-02-08] MEDS: traZODone 50mg tablet PO SCH (20:33)
[2019-02-09] MEDS: LORazepam 1 MG tablet PO PRN (03:26)
[2019-02-09 05:35] VITALS: BP 115/63
--- NOTE | 2019-02-09 06:30 | NUR ---
Patient sleeping supine. No distress observed. Continue to monitor.
--- NOTE | 2019-02-09 07:20 | NUR ---
Patient ambulatory to BR, steady gait. No distress observed. Continue to monitor.
[2019-02-09] MEDS: lithium carbonate 150mg capsule PO SCH (08:13)
[2019-02-09] MEDS: risperiDONE 2mg tablet PO SCH (08:13)
[2019-02-09] MEDS: potassium Cl 20 mEq SR tablet PO SCH (08:13)
[2019-02-09] MEDS ORDERED: POTA20TA19 PO (10:48)
[2019-02-10] MEDS ORDERED: topiramate 100mg tablet PO SCH (20:00)
== END 2019-02-09 10:58 | disposition home or self-care (01) ==
LOC: ER 21:01
DX: F25.9 Schizoaffective disorder, unspecified (principal); F60.0 Paranoid personality disorder; E87.6 Hypokalemia; F15.10 Other stimulant abuse, uncomplicated; F31.9 Bipolar disorder, unspecified; F41.9 Anxiety disorder, unspecified; F12.90 Cannabis use, unspecified, uncomplicated; F14.90 Cocaine use, unspecified, uncomplicated; F11.90 Opioid use, unspecified, uncomplicated; F10.99 Alcohol use, unspecified with unspecified alcohol-induced disorder; Z59.0 Homelessness; Z79.899 Other long term (current) drug therapy; Y90.9 Presence of alcohol in blood, level not specified
CPT/HCPCS: 36415; 80053; 80305; 80320; 81001; 84132; 84443; 85025; 99285; Q0177; Z7610

== ENCOUNTER 2019-02-09 10:01 | Inpatient (IN) | payer MEDICARE, MEDICAID ==
[~2019-02-09] VITALS: Ht 195.6 cm; Wt 97.7 kg
[2019-02-09] MEDS ORDERED: magnesium hydroxide 30ml (MOM) UD suspension PO PRN (10:40)
[2019-02-09] MEDS ORDERED: tuberculin, purif. prot. deriv. 5 units/0.1ml ID ONE (10:40)
[2019-02-09] MEDS ORDERED: acetaminophen 325mg tablet PO PRN ×2 (10:40)
[2019-02-09] MEDS ORDERED: loperamide 2mg capsule PO PRN (10:40)
[2019-02-09] MEDS ORDERED: hydrOXYzine 25 MG tablet PO PRN (10:40)
[2019-02-09] MEDS ORDERED: NICOTINE POLACRILEX 2 MG LOZENGE MM PRN (10:40)
[2019-02-09] MEDS ORDERED: mag hydrox/Alum hydrox/simeth 30ml oral suspension PO PRN (10:40)
[2019-02-09] MEDS ORDERED: POTA20TA19 PO (10:48)
--- NOTE | 2019-02-09 11:02 | NUR ---
Admission note Pt arrives on the unit 1100 today on 5150 hold for DTS. Pt reports having suicidal thoughts and states "I feel like I would hurt myself out on the streets. I would cut my wrists with a razor blade, jump off a bridge or overdose on something." Pt escorted ambulatory from the ER with [employer] and security. Pt has history of Anxiety, Bipolar, depression. Pt cooperative with admission process.
[2019-02-09] MEDS: nicotine 21mg patch - 24 hr TD SCH (11:37)
[2019-02-09 12:00] VITALS: BP 105/60
[2019-02-09] MEDS: potassium Cl 20 mEq SR tablet PO SCH ×2 (13:25→20:34)
--- NOTE | 2019-02-09 13:47 | NUR ---
Nursing Progress Note: Legal hold:5150 Client on involuntary status for DTS Report received from nurse with use of SBAR: Stephan PERKINS Why are they here: Pt presented to the ED endorsing depression and SI, he has a Hx of past suicide attempts. He is homeless. He presented a note from his therapist to the ER MD stating that his mental health was deteriorating that he is delusional and paranoid with SI and in need of psychiatric evaluation. U-tox was positive for amphetamines. Assessment What has happened this shift: Pt admitted to the behavioral health unit room 332B at 1100 accompanied by PCT and security, ambulated here from the ER overflow. Skin check done by 2 RNs, skin is C/D/I. Pt showered, his clothes were washed, safety check done, and belongings inventoried. When asked if pt was feeling depressed he replied, "I feel yucky and groggy." When asked about SI pt replied, "no, not in this particular moment." Pt denied HI/AH, when asked if he ever sees anything unusual, he replied, "I see things that I misinterpret." When asked if these things may not really be there (hallucinations), he replied, "No, I see people and T-shirts, and cars, and colors and I think they're trying to tell me something." Clarified that he was not hallucinating but but believing that things he sees have a particular meaning just for him, messages of sorts. Pt asked about snack times and was adamant that he needed to call [employer] today but didn't have the numbers. PCT reassured pt that he could look the numbers up for him so he could call. S/I, H/I: Pt denies A/VH: Pt denies Sleep: Pt did not nap ADL's:Independent, showered Group attendance: No, not so far today. Were meds taken: Yes, took meds in overflow. Nicotine patch applied. Any med S/E: Pt stated they gave him something downstairs that made him not feel well, made him groggy. Mental Status Exam Appearance: Disheveled and malodorous before shower Eye contact: Good Behavior: Cooperative Speech: audible, normal rate and rhythm, usually clear though a little slurred at times as pt is edentulous. Mood: apathetic, blase Affect: blunted Thought process: liner, possible delusions/magical thinking, interprets mundane things he sees as having special meaning for him. Thought Content: Focused on snacks and following up with housing at [facility] Cognition: A/O X 4 Insight: poor Judgment: poor Interventions PRN's used: None Therapeutic interventions: 1:1 assessment, establishment of rapport, encouragement to express thoughts and feelings, encouragement to perform personal hygiene, medication administration/education/monitoring, Q 15 min checks. Restraints/seclusion/emergency medication: N/A Justification of Continued Inpatient Treatment: Pt has a Hx of SAs, he is endorsing intermittent SI, per his therapist's note, he has been paranoid and delusional. He has a Hx of amphetamine abuse and is homeless. He needs stabilization with medication adjustment and monitoring as well as placement. Addendum: 02/09/19 at 1731 by Dee Frausto RN (Lee) Pt approached this RN and asked, "Can I talk to you?" Pt then stated that he wasn't sure that he did the right thing by coming here. "I'm worried about other people." Pt was whispering and glancing around, he appeared paranoid. Reassured pt that he was safe here. "I'm worried about my family." Asked why he was worried about his family, he replied, "I don't know" and became tearful. Asked pt if his family knew he was here, he replied no. Encouraged pt to call his family and check on them as well as let them know he is here. Pt took the cordless phone, looked anxious and nervous, he stated, "there's something big going on here." Clarified that he did not mean here in this hospital but here in the [facility].
[2019-02-09 20:00] VITALS: BP 105/61
[2019-02-09] MEDS: risperiDONE 2mg tablet PO SCH (20:34)
[2019-02-09] MEDS: hydrOXYzine 25 MG tablet PO SCH (20:35)
[2019-02-09] MEDS: traZODone 50mg tablet PO SCH (20:35)
[2019-02-09] MEDS: lithium carbonate 150mg capsule PO SCH (20:36)
[2019-02-09] MEDS: benztropine 1mg tablet PO SCH (20:37)
[2019-02-09] MEDS ORDERED: LITHIUM CARBONATE PO SCH (21:00)
[2019-02-09] MEDS ORDERED: non-formulary drug (Trazodone HCl 1 TAB) PO SCH (21:00)
--- NOTE | 2019-02-09 23:39 | NUR ---
Nursing Progress Note: Legal hold:5150 Client on involuntary status for DTS Report received from nurse with use of SBAR: Stephan PERKINS Why are they here: Pt presented to the ED endorsing depression and SI, he has a Hx of past suicide attempts. He is homeless. He presented a note from his therapist to the ER MD stating that his mental health was deteriorating that he is delusional and paranoid with SI and in need of psychiatric evaluation. U-tox was positive for amphetamines. Assessment What has happened this shift: Pt admitted to the behavioral health unit room 332B at 1100 accompanied by PCT and security, ambulated here from the ER overflow. Skin check done by 2 RNs, skin is C/D/I. Pt showered, his clothes were washed, safety check done, and belongings inventoried. When asked if pt was feeling depressed he replied, "I feel yucky and groggy." When asked about SI pt replied, "no, not in this particular moment." Pt denied HI/AH, when asked if he ever sees anything unusual, he replied, "I see things that I misinterpret." When asked if these things may not really be there (hallucinations), he replied, "No, I see people and T-shirts, and cars, and colors and I think they're trying to tell me something." Clarified that he was not hallucinating but but believing that things he sees have a particular meaning just for him, messages of sorts. Patient reports feeling sleepy and thinks it's from the medications. He remained in bed and slept. S/I, H/I: Pt denies A/VH: Pt denies Sleep: Pt did not nap ADL's:Independent, showered Group attendance: No, not so far today. Were meds taken: Yes, took meds in overflow. Nicotine patch applied. Any med S/E: Pt stated they gave him something downstairs that made him not feel well, made him groggy. Mental Status Exam Appearance: Disheveled and malodorous before shower Eye contact: Good Behavior: Cooperative Speech: audible, normal rate and rhythm, usually clear though a little slurred at times as pt is edentulous. Mood: apathetic, blase Affect: blunted Thought process: liner, possible delusions/magical thinking, interprets mundane things he sees as having special meaning for him. Thought Content: Focused on snacks and following up with housing at [facility] Cognition: A/O X 4 Insight: poor Judgment: poor Interventions PRN's used: None Therapeutic interventions: 1:1 assessment, establishment of rapport, encouragement to express thoughts and feelings, encouragement to perform personal hygiene, medication administration/education/monitoring, Q 15 min checks. Restraints/seclusion/emergency medication: N/A Justification of Continued Inpatient Treatment: Pt has a Hx of SAs, he is endorsing intermittent SI, per his therapist's note, he has been paranoid and delusional. He has a Hx of amphetamine abuse and is homeless. He needs stabilization with medication adjustment and monitoring as well as placement.
[2019-02-10 08:00] VITALS: BP 105/67
[2019-02-10] MEDS ORDERED: VILAZODONE HYDROCHLORIDE PO SCH (08:00)
[2019-02-10] MEDS: risperiDONE 2mg tablet PO SCH ×2 (08:09→20:17)
[2019-02-10] MEDS: lithium carbonate 150mg capsule PO SCH ×2 (08:09→20:19)
[2019-02-10] MEDS: potassium Cl 20 mEq SR tablet PO SCH ×3 (08:10→20:18)
[2019-02-10] MEDS: nicotine 21mg patch - 24 hr TD SCH (08:12)
[2019-02-10 08:54] LABS: CHOL/HDL RATIO 2.8 (0.00-4.99); CHOLESTEROL 144 MG/DL (0-200); HDL CHOLESTEROL 51 MG/DL (35-60); LDL CHOLESTEROL 76 MG/DL (50-100); TRIGLYCERIDES 101 MG/DL (20-135)
--- NOTE | 2019-02-10 14:51 | NUR ---
Nursing Progress Note: Legal hold:5150 Client on involuntary status for DTS Report received from nurse with use of SBAR: Stephan PERKINS Why are they here: Pt presented to the ED endorsing depression and SI, he has a Hx of past suicide attempts. He is homeless. He presented a note from his therapist to the ER MD stating that his mental health was deteriorating that he is delusional and paranoid with SI and in need of psychiatric evaluation. U-tox was positive for amphetamines. Assessment What has happened this shift: Greeted pt in his room before breakfast with a "good morning." Pt replied "whatever." Pt appeared sullen and depressed. Pt admitted to feeling depressed, when asked if he felt like hurting himself, he became angry, did not answer the question and stated loudly "I don't know what's going on!" He continued with delusional, paranoid accusatory statements and questions, "Somethings's going on here...do you guys pay people to be mean to me? You guys don't like me here, I can tell! What do you guys want me to do? Kill myself?!" Verbal de-escalation utilized, reassured pt that staff was here to help him and he was here so we could keep him safe. Asked pt if he had been able to get a hold of his family yesterday, pt became tearful and replied, "I don't know, I don't know if I'm supposed to talk to them!" Left pt in his room to calm himself before breakfast. Pt was cooperative with medications at breakfast though did angrily state, "this is a lot of medicine!" Encouraged him to speak with the psychiatrist or the PA about his concerns. Observed pt approach another RN and ask him to go to his room and pray with him. The other RN returned and stated that he had a conversation with the pt about his drug use. Pt stated that what he liked about the drugs is that they make him horny. Was present for a portion of psychosocial assessment and pt had complained about not receiving dessert on his tray when others did as though he was purposely singled out to not receive dessert. Pender SW ask the pt about goals he has for himself. He appeared to be thought blocking but eventually stated that he needs to stay off the drugs, find housing, and get back with his family. S/I, H/I: Pt declined to answer the questions A/VH: Pt declined to answer the questions Sleep: Pt slept 9.5 hours per noc shift report ADL's:Independent Group attendance: Yes Were meds taken: Yes, Any med S/E: None observed or reported Mental Status Exam Appearance: Clean,dressed in street clothes after breakfast Eye contact: Good Behavior: easily frustrated, paranoid, accusatory, agitated at times Speech: audible, loud at times when agitated Mood: Labile, angry, agitated Affect: depressed, agitated Thought process: paranoid, delusional Thought Content: believes something bad is going on here, thinks staff doesn't like him, thinks about is family and the need to find housing. Cognition: A/O X 4 Insight: poor Judgment: poor Interventions PRN's used: None Therapeutic interventions: 1:1 assessment, encouragement to express thoughts and feelings, reassurance that he is safe here and staff is here to help, verbal de-escalation, positive reinforcement, reality orientation, encouragement to attend groups, medication administration/education/monitoring, Q 15 min safety checks. Restraints/seclusion/emergency medication: N/A Justification of Continued Inpatient Treatment: Pt is paranoid, delusional, and labile. His U-tox was positive for amphetamine abuse and is homeless. He needs stabilization with medication adjustment and monitoring as well as placement.
[2019-02-10 19:00] VITALS: BP 114/66
[2019-02-10] MEDS: traZODone 50mg tablet PO SCH (20:18)
[2019-02-10] MEDS: hydrOXYzine 25 MG tablet PO SCH (20:18)
[2019-02-10] MEDS: benztropine 1mg tablet PO SCH (20:18)
--- NOTE | 2019-02-11 00:59 | NUR ---
RN PROGRESS NOTE: THIS SHIFT: Client was in bed at [facility]. C/O fatigue. No complaints of pain or discomfort. Thought is linear and connected. No evidence of hallucinations or delusions. Affect is blunted. Mood appears stable. Compliant with medications.
[2019-02-11 08:00] VITALS: BP 118/63
[2019-02-11] MEDS: risperiDONE 2mg tablet PO SCH (08:34)
[2019-02-11] MEDS: lithium carbonate 150mg capsule PO SCH (08:34)
[2019-02-11] MEDS: potassium Cl 20 mEq SR tablet PO SCH ×3 (08:35→20:39)
[2019-02-11] MEDS: nicotine 21mg patch - 24 hr TD SCH (08:38)
--- NOTE | 2019-02-11 14:21 | NUR ---
Nursing Progress Note: Legal hold:5150 Client on involuntary status for DTS Report received from nurse with use of SBAR: GREGORIO Colin Why are they here: Pt presented to the ED endorsing depression and SI, he has a Hx of past suicide attempts. He is homeless. He presented a note from his therapist to the ER MD stating that his mental health was deteriorating that he is delusional and paranoid with SI and in need of psychiatric evaluation. U-tox was positive for amphetamines. Assessment What has happened this shift: Pt initially refused to come to breakfast stating that he didn't feel like it. This RN went down to his room to let him know it looked good and there were waffles, pt got up and came to breakfast. He was cooperative with medications, pleasant and cooperative today. Pt thanked this RN for his medicine. Pt reported that he is still really depressed, also groggy and fatigued. Asked him if he thought it could be a side effect of his medications. Pt replied, "I don't know." Pt quiet, mostly isolative to self and room. Pt stated that he is still really depressed as well as groggy, tired, and fatigued. Asked pt if he felt it may be due to the meds he is on. Pt replied, "I don't think so." When asked about SI, he replied, "Off and on." Pt did not have a specific plan and contracted for safety here today. Pt denied HI/AH/VH. S/I, H/I: Pt denies HI, vague SI A/VH: Pt denies Sleep: Pt slept 7.5 hours per noc shift report, slept much of the day ADL's: Independent Group attendance: No Were meds taken: Yes Any med S/E: c/o grogginess and fatigue but doesn't know if it's med-related Mental Status Exam Appearance: Clean,dressed in street clothes Eye contact: Good Behavior: pleasant, cooperative, isolative to self Speech: clear, audible Mood: Depressed Affect: Depressed Thought process: linear Thought Content: pt focused on fatigue Cognition: A/O X 4 Insight: poor Judgment: poor Interventions PRN's used: None Therapeutic interventions: 1:1 assessment, encouragement to express thoughts and feelings, encouragement to attend groups, medication administration/education/monitoring, Q 15 min safety checks. Restraints/seclusion/emergency medication: N/A Justification of Continued Inpatient Treatment: Pt continues to be depressed with intermittent SI. His U-tox was positive for amphetamine abuse and is homeless. He needs stabilization with medication adjustment and monitoring as well as placement.
[2019-02-11 19:57] VITALS: BP 126/76
[2019-02-11] MEDS: hydrOXYzine 25 MG tablet PO SCH (20:38)
[2019-02-11] MEDS: traZODone 50mg tablet PO SCH (20:38)
[2019-02-11] MEDS: topiramate 100mg tablet PO SCH (20:38)
--- NOTE | 2019-02-12 04:13 | NUR ---
Nursing Progress Note: Legal hold:5150 Client on involuntary status for DTS Report received from nurse with use of SBAR: GREGORIO Wilson Why are they here: Pt presented to the ED endorsing depression and SI, he has a Hx of past suicide attempts. He is homeless. He presented a note from his therapist to the ER MD stating that his mental health was deteriorating that he is delusional and paranoid with SI and in need of psychiatric evaluation. U-tox was positive for amphetamines. Assessment What has happened this shift: The patient was in the Group room a t shift change. He agreed to 1:1 at his bedside. The patient reports that he's homeless and has been using meth, "It made me psychotic, I was seeing things and hearing things. I know it's from the meth. I'm never using it again." He states that [facility] because he's 30 days out. "I have no skills to be homeless...I'm scared to be homeless on the streets." He says he's hoping to go to [facility]. "There's too much fear, too many mean people on the streets." The patient isolates to himself and does not interact with other clients. He took his HS meds and went to bed. S/I, H/I: Pt denies A/VH: Pt denies Sleep: See sleep hours ADL's: Independent Group attendance: No groups at night. Were meds taken: Yes. Any med S/E: None stated or observed. Mental Status Exam Appearance: Disheveled with greasy gallardo hair, wearing Jeans and sweat shirt. Eye contact: Good Behavior: Cooperative, isolative. Speech: Normal rate and rhythm, unclear at times, edentulous Mood: Withdrawn, labile Affect: blunted Thought process: Logical, linear goal oriented. Thought Content: Focuses on getting to [place]. Cognition: A/O X 4 Insight: poor Judgment: poor Interventions PRN's used: None Therapeutic interventions: 1:1 assessment, establishment of rapport, encouragement to express thoughts and feelings, encouragement to perform personal hygiene, medication administration/education/monitoring, Q 15 min checks. Restraints/seclusion/emergency medication: N/A Justification of Continued Inpatient Treatment: Pt has a Hx of SAs, he is endorsing intermittent SI, per his therapist's note, he has been paranoid and delusional. He has a Hx of amphetamine abuse and is homeless. He needs stabilization with medication adjustment and monitoring as well as placement.
[2019-02-12] MEDS: potassium Cl 20 mEq SR tablet PO SCH ×2 (07:54→12:35)
[2019-02-12] MEDS: topiramate 100mg tablet PO SCH (07:54)
[2019-02-12 07:55] VITALS: BP 117/68
[2019-02-12] MEDS: nicotine 21mg patch - 24 hr TD SCH (07:55)
[2019-02-12] MEDS ORDERED: NICO-687 TD (12:28)
[2019-02-12] MEDS ORDERED: TOP100T PO (12:28)
[2019-02-12] MEDS: hydrOXYzine 25 MG tablet PO SCH (12:36)
--- NOTE | 2019-02-12 13:10 | NUR ---
Pt. discharged to [facility] via bus with all valuables. Pt.'s f/u appointments discussed and scripts given. Pt. verbalizes understanding of f/u and medications. Pt.'s mood imporving since admit. Affect is flat. Pt. denies SI/HI, A/V H. Pt. is not in any acute psychiatric or emotional distress. Pt. discharged with script for nicotine replacement patches.
== END 2019-02-12 13:10 | disposition short-term general hospital (02) | DRG 885 ==
LOC: ADULT MH 10:01
PROVIDERS: ADMIT Psychiatry & Neurology Psychiatry; ATTEND Psychiatry & Neurology Psychiatry
DX: F31.9 Bipolar disorder, unspecified (principal); R45.851 Suicidal ideations; F17.210 Nicotine dependence, cigarettes, uncomplicated; F60.3 Borderline personality disorder; F15.159 Other stimulant abuse with stimulant-induced psychotic disorder, unspecified; F12.90 Cannabis use, unspecified, uncomplicated; F60.0 Paranoid personality disorder; Z83.3 Family history of diabetes mellitus; Z79.899 Other long term (current) drug therapy
CPT/HCPCS: 36415; 80053; 80061; 80305; 80320; 81001; 83036; 84132; 84443; 85025; 87081; 99285; Z7610

== ENCOUNTER 2019-02-21 04:07 | Emergency (ER) | payer MEDICARE, MEDICAID ==
[~2019-02-21] VITALS: Ht 195.6 cm; Wt 100.0 kg
[~2019-02-21 04:07] MED LIST changes: -BENZ1TAB7 PO; -HYDR-3686 PO; -LITH150C8 PO; -LITH300C PO; -LORA2TAB PO; +NICO-687 TD; +POTA20TA19 PO; -RISP2TAB3 PO; +TOP100T PO; -TRAZ-219 PO; -VAL5T PO; -VILA40TA PO
[2019-02-21 05:05] VITALS: BP 158/94
== END 2019-02-21 05:06 | disposition home or self-care (01) ==
LOC: ER 04:09
DX: R20.0 Anesthesia of skin (principal); F15.90 Other stimulant use, unspecified, uncomplicated; F41.9 Anxiety disorder, unspecified; F31.9 Bipolar disorder, unspecified; F12.90 Cannabis use, unspecified, uncomplicated; F14.90 Cocaine use, unspecified, uncomplicated; F11.90 Opioid use, unspecified, uncomplicated; Z59.0 Homelessness; Z79.899 Other long term (current) drug therapy
CPT/HCPCS: 99283

== ENCOUNTER 2019-03-05 20:14 | Emergency (ER) | payer MEDICARE, MEDICAID | END 2019-03-05 21:56 | disposition left against medical advice (07) | LOC: ER 20:15 | DX: M79.673 Pain in unspecified foot (principal); Z53.21 Procedure and treatment not carried out due to patient leaving prior to being seen by health care provider ==

== ENCOUNTER 2019-03-15 22:35 | Emergency (ER) | payer MEDICARE, MEDICAID ==
[~2019-03-15] VITALS: Ht 188 cm; Wt 85.0 kg
[2019-03-15] MEDS ORDERED: IBUP-1984 PO (22:52)
[2019-03-15 22:58] VITALS: BP 140/92
== END 2019-03-15 23:00 | disposition home or self-care (01) ==
LOC: ER 22:35
DX: M25.562 Pain in left knee (principal); F41.9 Anxiety disorder, unspecified; F31.9 Bipolar disorder, unspecified; F12.90 Cannabis use, unspecified, uncomplicated; F15.90 Other stimulant use, unspecified, uncomplicated; F11.90 Opioid use, unspecified, uncomplicated; F14.90 Cocaine use, unspecified, uncomplicated; Z59.0 Homelessness; Z79.899 Other long term (current) drug therapy
CPT/HCPCS: 99282

== ENCOUNTER 2019-03-25 23:59 | Emergency (ER) | payer MEDICARE, MEDICAID ==
[~2019-03-25] VITALS: Ht 195.6 cm; Wt 100.0 kg
[2019-03-26 00:02] VITALS: BP 132/89
== END 2019-03-26 00:32 | disposition home or self-care (01) ==
LOC: ER 23:59
DX: M25.562 Pain in left knee (principal); F12.90 Cannabis use, unspecified, uncomplicated; F15.90 Other stimulant use, unspecified, uncomplicated; F14.90 Cocaine use, unspecified, uncomplicated; F11.90 Opioid use, unspecified, uncomplicated; Z59.0 Homelessness; Z79.899 Other long term (current) drug therapy
CPT/HCPCS: 99281

== ENCOUNTER 2019-04-19 01:18 | Emergency (ER) | payer MEDICARE, MEDICAID ==
[~2019-04-19] VITALS: Ht 198.1 cm; Wt 100.0 kg
[2019-04-19 02:12] VITALS: BP 145/99
== END 2019-04-19 02:10 | disposition home or self-care (01) ==
LOC: ER 01:19
DX: N50.812 Left testicular pain (principal); N50.89 Other specified disorders of the male genital organs; F41.9 Anxiety disorder, unspecified; F31.9 Bipolar disorder, unspecified; F12.90 Cannabis use, unspecified, uncomplicated; F15.90 Other stimulant use, unspecified, uncomplicated; F14.90 Cocaine use, unspecified, uncomplicated; F11.90 Opioid use, unspecified, uncomplicated; Z59.0 Homelessness; Z79.899 Other long term (current) drug therapy
CPT/HCPCS: 99281

== ENCOUNTER 2019-05-01 21:18 | Emergency (ER) | payer MEDICARE, MEDICAID ==
[~2019-05-01] VITALS: Ht 195.6 cm; Wt 100.0 kg
[2019-05-01 21:29] VITALS: BP 128/96
[2019-05-01] MEDS ORDERED: ibuprofen 200mg tablet PO ONE (23:05)
== END 2019-05-01 23:15 | disposition home or self-care (01) ==
LOC: ER 21:19
DX: S70.01XA Contusion of right hip, initial encounter (principal); F41.9 Anxiety disorder, unspecified; F31.9 Bipolar disorder, unspecified; F17.200 Nicotine dependence, unspecified, uncomplicated; F12.90 Cannabis use, unspecified, uncomplicated; F14.90 Cocaine use, unspecified, uncomplicated; F15.90 Other stimulant use, unspecified, uncomplicated; F11.90 Opioid use, unspecified, uncomplicated; Z79.899 Other long term (current) drug therapy; Z59.0 Homelessness; W19.XXXA Unspecified fall, initial encounter; Y93.89 Activity, other specified; Y92.89 Other specified places as the place of occurrence of the external cause; Y99.8 Other external cause status
CPT/HCPCS: 99281; 99282

== ENCOUNTER 2019-05-12 05:07 | Emergency (ER) | payer MEDICARE, MEDICAID ==
[~2019-05-12] VITALS: Ht 198.1 cm; Wt 90.8 kg
[2019-05-12 05:13] VITALS: BP 130/77
== END 2019-05-12 05:57 | disposition home or self-care (01) ==
LOC: ER 05:09
DX: F32.9 Major depressive disorder, single episode, unspecified (principal); F43.9 Reaction to severe stress, unspecified; F41.9 Anxiety disorder, unspecified; F12.90 Cannabis use, unspecified, uncomplicated; F15.90 Other stimulant use, unspecified, uncomplicated; F14.90 Cocaine use, unspecified, uncomplicated; F11.90 Opioid use, unspecified, uncomplicated; F17.200 Nicotine dependence, unspecified, uncomplicated; Z59.0 Homelessness; Z79.899 Other long term (current) drug therapy
CPT/HCPCS: 99284

== ENCOUNTER 2019-05-12 20:13 | Emergency (ER) | payer MEDICARE, MEDICAID ==
[~2019-05-12] VITALS: Ht 195.6 cm; Wt 90.0 kg
[2019-05-12 20:24] VITALS: BP 139/88
--- NOTE | 2019-05-12 20:55 | NUR ---
PT HAS TAKEN METH TODAY AND FELT A PIERCING IN THE LEFT EAR LOBE. DOESNT REMEMBER WHY OR WHO DID IT.
== END 2019-05-12 21:00 | disposition home or self-care (01) ==
LOC: ER 20:13
DX: H92.02 Otalgia, left ear (principal); F12.90 Cannabis use, unspecified, uncomplicated; F15.90 Other stimulant use, unspecified, uncomplicated; F14.90 Cocaine use, unspecified, uncomplicated; F11.90 Opioid use, unspecified, uncomplicated; Z79.899 Other long term (current) drug therapy; Z59.0 Homelessness
CPT/HCPCS: 99281

== ENCOUNTER 2019-05-15 23:24 | Emergency (ER) | payer MEDICARE, MEDICAID ==
[~2019-05-15] VITALS: Ht 195.6 cm; Wt 95.0 kg
--- NOTE | 2019-05-16 00:53 | NUR ---
TELEPSYCH CONSULT CONCLUDED AT THIS TIME. PER DR DUQUE PATIENT IS APPROPRIATE FOR D/C AT THIS TIME.
[2019-05-16 01:46] VITALS: BP 157/62
== END 2019-05-16 01:48 | disposition home or self-care (01) ==
LOC: ER 23:25
DX: F32.9 Major depressive disorder, single episode, unspecified (principal); F41.9 Anxiety disorder, unspecified; F12.90 Cannabis use, unspecified, uncomplicated; F15.90 Other stimulant use, unspecified, uncomplicated; F11.90 Opioid use, unspecified, uncomplicated; F14.90 Cocaine use, unspecified, uncomplicated; F10.99 Alcohol use, unspecified with unspecified alcohol-induced disorder; Z79.899 Other long term (current) drug therapy; Z59.0 Homelessness; Y90.9 Presence of alcohol in blood, level not specified
CPT/HCPCS: 99284

== ENCOUNTER 2019-06-01 19:02 | Inpatient (IN) | payer MEDICARE, MEDICAID ==
[~2019-06-01] VITALS: Ht 195.6 cm; Wt 94.6 kg
[2019-06-01] MEDS ORDERED: acetaminophen 325mg tablet PO PRN ×2 (19:35)
[2019-06-01] MEDS ORDERED: loperamide 2mg capsule PO PRN (19:35)
[2019-06-01] MEDS ORDERED: magnesium hydroxide 30ml (MOM) UD suspension PO PRN (19:35)
[2019-06-01] MEDS ORDERED: mag hydrox/Alum hydrox/simeth 30ml oral suspension PO PRN (19:35)
[2019-06-01 20:30] VITALS: BP 110/57
[2019-06-01] MEDS ORDERED: NO HOME MEDS (20:44)
[2019-06-01] MEDS: hydrOXYzine 25 MG tablet PO PRN (21:30)
--- NOTE | 2019-06-02 01:15 | NUR ---
ADMIT NOTE Legal hold: 5150 Exp 06/04 @ 2021 Client on involuntary status for DTS. Report received from LAWANDA Rothman with use of SBAR. Why are they here: Pt presented to [facility] with SI and a plan to jump off a bridge. Pt states I cant do this. I dont know Ill do when I leave here. Pt has a history of psychiatric admissions and methamphetamine abuse. Pt was recently released from [facility] and "I really enjoyed being there." Pt has been seen multiple times at [facility] ED for SI. Last visit was 05/16/19 and was sent to [facility]. Assessment What has happened this shift: Pt admitted to [facility] on a 5150 at 2021. Pt was escorted to unit in a wheelchair with PCT. Amelia 2 RN Skin Assessment was completed by Lindsey WEBBER and Debbie WEBBER. Pt refused shower. Pt is A&O x4. Pt was cooperative and when taken to his room remarks this is the life", this is like Anabellealvino Mcconnell. Pt reports this come down was wild, I was seeing flying pancakes. Pt denies A/V H at time of assessment. Pt has a history of methamphetamine use and last used 2 days ago. Pt reports SI would probably jump off a bridge. Pt was oriented to unit. Pt kept asking for food and was given sandwich, juice and crackers. Pt became slightly agitated with all the questions, administered Atarax with effect. S/I, H/I: Reports SI would probably jump off a bridge. A/VH: None reported or observed Sleep: Refer to Sleep Assessment ADL's: Independent Group attendance: wedding day coordinator, no group. Were meds taken: No scheduled medications. Any med S/E: None Mental Status Exam Appearance: Disheveled, dressed in green unit scrubs. Eye contact: Good Behavior: Happy to be hear Speech: Normal rate and rhythm Mood: Guarded Affect: Flat Thought process: Circumstantial Thought Content: Happy to be here Cognition: Intact Insight: Poor Judgment: Poor Interventions PRN's used: Atarax Therapeutic interventions: Introduced self and established rapport, unit orientation, medication administration/education/monitoring, 1:1 assessment, contract for safety ensured; Q15 min safety checks. Restraints/seclusion/emergency medication: None Justification of Continued Inpatient Treatment: Pt needs medication adjustment and monitoring in a safe therapeutic environment until stable.
[2019-06-02 08:12] VITALS: BP 98/51
[2019-06-02] MEDS: hydrOXYzine 25 MG tablet PO PRN ×2 (09:20→20:48)
--- NOTE | 2019-06-02 14:19 | NUR ---
Malnutrition consult: Pt PO intake 100% on regular diet. No significant weight change from previous visits. No muscle weakness or edema present. Pt does not meet criteria for malnutrition at this time. Addendum: 06/02/19 at 1419 by Wing Zak HENDERSON Amended: Links added. Addendum: 06/02/19 at [address] SANTIAGO agree with logistics intern note
[2019-06-02] MEDS: NICOTINE POLACRILEX 2 MG LOZENGE BC PRN ×5 (14:34→20:48)
--- NOTE | 2019-06-02 16:05 | NUR ---
Nursing Progress Note: Compa Legal hold: 5150 Exp 06/04 @ 2021 Client on involuntary status for DTS. Report received from LAWANDA Lewis with use of SBAR. Why are they here: Pt presented to [facility] with SI and a plan to jump off a bridge. Pt states I cant do this. I dont know Ill do when I leave here. Pt has a history of psychiatric admissions and methamphetamine abuse. Pt was recently released from [facility] and "I really enjoyed being there." Pt has been seen multiple times at [facility] ED for SI. Last visit was 05/16/19 and was sent to [facility]. Assessment What has happened this shift: Client was verbally abusive towards staff to begin the shift. He was redirected from using profane and loud language directed towards a Tech. He was redirected and given PRN of Atarax. He claims that he is, "starving" so he was provided with additional nutrition. At one point client was stating loudly that, " I am here to break the rules". He redirected well with staff intervention and guidance. Client received a visit from a Nephew and his biological son. Client stated, " This is the first time in my mental health history that I have had a visitor". Unit behaviors seem much more appropriate now. (1050 hours). Verbal order obtained from Charbel Shea to offer Nicotine Lozenges Q2 hours PRN at 1430 hours. Client has been visible with appropriate behaviors this shift. S/I, H/I: Reports SI would probably jump off a bridge. A/VH: None reported or observed Sleep: 6.75 hours sleep last shift. ADL's: Independent Group attendance: Were meds taken: No scheduled medications. Any med S/E: None Mental Status Exam Appearance: Disheveled, dressed in green unit scrubs. Eye contact: Good Behavior: Happy to be hear Speech: Normal rate and rhythm Mood: Guarded Affect: Flat Thought process: Circumstantial Thought Content: Happy to be here Cognition: Intact Insight: Poor Judgment: Poor Interventions PRN's used: Atarax Therapeutic interventions: Introduced self and established rapport, unit orientation, medication administration/education/monitoring, 1:1 assessment, contract for safety ensured; Q15 min safety checks. Restraints/seclusion/emergency medication: None Justification of Continued Inpatient Treatment: Pt needs medication adjustment and monitoring in a safe therapeutic environment until stable.
[2019-06-02 20:00] VITALS: BP 127/63
--- NOTE | 2019-06-03 00:26 | NUR ---
Nursing Progress Note: Legal hold: 5150 Exp 06/04 @ 2021 Client on involuntary status for DTS. Report received from LAWANDA Rothman with use of SBAR. Why are they here: Pt presented to [facility] with SI and a plan to jump off a bridge. Pt states I cant do this. I dont know Ill do when I leave here. Pt has a history of psychiatric admissions and methamphetamine abuse. Pt was recently released from [facility] and "I really enjoyed being there." Pt has been seen multiple times at [facility] ED for SI. Last visit was 05/16/19 and was sent to [facility]. Assessment What has happened this shift: The patient was seen at bedside for 1:1. He reports, "I did too much meth, I actually thought i was seeing a nurse making pancakes all night long. I was so paranoid that I thought there were bugs all over, in cars, the lemus...It was the worst paranoia ever." The patient was appropriate with language and actions this shift. He states that he feels safe here, but wants to go somewhere to get off drugs. He says that this time he really wants it. The patient reports that he doesn't like to take medications because "they don't make me feel anything...Not like Ativan does." The patient did c/o anxiety and asked for Ativan, but took Atarax, which was effective. He believes he will be leaving in the AM. S/I, H/I: Reports SI No plan today. A/VH: Denies Sleep: See sleep hours. ADL's: Independent Group attendance: no groups at night Were meds taken: No scheduled medications. Any med S/E: None Mental Status Exam Appearance: Disheveled, dirty, malodorous, dressed in green unit scrubs. Eye contact: Good Behavior: Happy to be hear Speech: Normal rate and rhythm Mood: Guarded Affect: Flat Thought process: Circumstantial Thought Content: Perseverates on discharge to drug rehab. Cognition: Intact Insight: Poor Judgment: Poor Interventions PRN's used: Atarax Therapeutic interventions: Introduced self and established rapport, unit orientation, medication administration/education/monitoring, 1:1 assessment, contract for safety ensured; Q15 min safety checks. Restraints/seclusion/emergency medication: None Justification of Continued Inpatient Treatment: Pt needs medication adjustment and monitoring in a safe therapeutic environment until stable.
[2019-06-03 07:50] VITALS: BP 102/61
[2019-06-03] MEDS: NICOTINE POLACRILEX 2 MG LOZENGE BC PRN ×5 (07:52→19:34)
[2019-06-03 08:28] LABS: CHOL/HDL RATIO 2.1 (0.00-4.99); CHOLESTEROL 123 MG/DL (0-200); HDL CHOLESTEROL 58 MG/DL (35-60); LDL CHOLESTEROL 64 MG/DL (50-100); TRIGLYCERIDES 29 MG/DL (20-135)
--- NOTE | 2019-06-03 15:10 | NUR ---
Nursing Progress Note: Compa Legal hold: 5150 Exp 06/04 @ 2021 Client on involuntary status for DTS. Report received from LAWANDA Mcintosh with use of SBAR. Why are they here: Pt presented to [facility] with SI and a plan to jump off a bridge. Pt states I cant do this. I dont know Ill do when I leave here. Pt has a history of psychiatric admissions and methamphetamine abuse. Pt was recently released from [facility] and "I really enjoyed being there." Pt has been seen multiple times at [facility] ED for SI. Last visit was 05/16/19 and was sent to [facility]. Assessment What has happened this shift: Client was in bed but awake to start the shit. Client immediately requested an "Ativan and a nicotine pill", when first contacted by this handbook writer. Client is amicable to assessment and medications and denied somatic complaints. Client verbalized that he was, "struggling with being sober or staying on meth". Client was given a 1:1 in order to allow client to verbalize his thoughts. He concluded conversation by stating, " I want this for my son", when discussing abstinence from stree drugs. Client request PRN Nicotine Lozenges at frequent intervals. Client also wants Ativan so, " I can at least feel something". Client expresses reservations regarding discharge and states, " I just want someone to take care of me". Client has had two loud outbursts in common area but was redirected with success. Client has been resting in his bed this afternoon free of somatic complaints. Client was told to anticipate discharge tomorrow. Client did not feel safe to depart the unit today. He would like a discharge plan that includes sober living facility. S/I, H/I: Reports SI No plan today. A/VH: Denies Sleep: See sleep hours. ADL's: Independent Group attendance: briefly attended am group today. Were meds taken: No scheduled medications. Any med S/E: None Mental Status Exam Appearance: Disheveled, dirty, malodorous, dressed in green unit scrubs. Eye contact: Good Behavior: Happy to be hear Speech: Normal rate and rhythm Mood: Guarded Affect: Flat Thought process: Circumstantial Thought Content: Perseverates on discharge to drug rehab. Cognition: Intact Insight: Poor Judgment: Poor Interventions PRN's used: nicotine lozenges Therapeutic interventions: Introduced self and established rapport, unit orientation, medication administration/education/monitoring, 1:1 assessment, contract for safety ensured; Q15 min safety checks. Restraints/seclusion/emergency medication: None Justification of Continued Inpatient Treatment: Pt needs medication adjustment and monitoring in a safe therapeutic environment until stable.
[2019-06-03] MEDS: hydrOXYzine 25 MG tablet PO PRN (17:28)
[2019-06-03 19:57] VITALS: BP 133/80
--- NOTE | 2019-06-03 23:52 | NUR ---
Nursing Progress Note: Legal hold: 5150 Exp 06/04 @ 2021 Client on involuntary status for DTS. Report received from LAWANDA Rothman with use of SBAR. Why are they here: Pt presented to [facility] with SI and a plan to jump off a bridge. Pt states I cant do this. I dont know Ill do when I leave here. Pt has a history of psychiatric admissions and methamphetamine abuse. Pt was recently released from [facility] and "I really enjoyed being there." Pt has been seen multiple times at [facility] ED for SI. Last visit was 05/16/19 and was sent to [facility]. Assessment What has happened this shift: Patient was seen in his bedroom for 1:1. He reports that he wasn't ready to DC today. The patient now believes that being conserved will be the way he wants to go. "That would be nice...Eva Fang could be my daddy, and I would get taken care of and they would keep me off drugs. I have no support, just a drug problem. I don't want to live on the streets anymore, it's too damn hard." The patient has no problem stating his wants. He just has problem stating how it would happen, if it's not done for him. The patient also denies any possibility that he might have mental illness, so won't take psych med, which might be helpful. The patient has repeatedly requested Ativan, "so I can feel something." S/I, H/I: Denies. A/VH: Denies Sleep: See sleep hours. ADL's: Independent Group attendance: no groups at night Were meds taken: No scheduled medications. Any med S/E: None Mental Status Exam Appearance: Disheveled, dirty, malodorous, dressed in green unit scrubs. Eye contact: Good Behavior: Drug seeking Speech: Normal rate and rhythm Mood: Guarded, irritable Affect: Flat Thought process: Circumstantial Thought Content: Perseverates on discharge to drug rehab. Cognition: Intact Insight: Poor Judgment: Poor Interventions PRN's used: Atarax Therapeutic interventions: Introduced self and established rapport, unit orientation, medication administration/education/monitoring, 1:1 assessment, contract for safety ensured; Q15 min safety checks. Restraints/seclusion/emergency medication: None Justification of Continued Inpatient Treatment: Pt needs medication adjustment and monitoring in a safe therapeutic environment until stable.
[2019-06-04] MEDS: NICOTINE POLACRILEX 2 MG LOZENGE BC PRN ×3 (06:55→12:15)
[2019-06-04 08:00] VITALS: BP 120/73
--- NOTE | 2019-06-04 08:36 | NUR ---
Discharge Planning: Presenting Problems: Pt's discharging today, needs linkages to [facility] & [facility] for f/u care & transportation. Interventions: SS had t/c w/[facility] & coordinated pt's f/u psych care w/Dr. George; scheduled for 06/07/19 @ 1:00PM. T/c w/[facility] and coordinated pt's f/u w/therapist, scheduled to see therapist on Tuesday06/06/19 @ 11:00AM Pt will be transported to [facility] by [facility] upon d/c. Plan: Pt to d/c today. Caitlin Donnelly LCSW Addendum: 06/04/19 at 0848 by Caitlin Donnelly Amended: Links added.
--- NOTE | 2019-06-04 12:30 | NUR ---
Discharge Planning: Pt's ready for d/c, SS met with pt to review dcp as pt cannot return to the [facility] for another 30 days. Per discussion, pt reports that he has money and [facility] Pt will be transported to the [facility] so he can access his money for a motel room. SS had t/c with [facility]'s office, left vm re change of d/c destination. Plan: Pt to d/c. Addendum: 06/04/19 at 1233 by Caitlin Donnelly Amended: Links added.
--- NOTE | 2019-06-04 13:16 | NUR ---
pt's d/c'd, SS referral closed. Caitlni Donnelly, STORAGE RECEIPT POSTER Addendum: 06/04/19 at 1316 by Caitlin Donnelly Amended: Links added.
--- NOTE | 2019-06-04 13:19 | NUR ---
Nursing Discharge Note Pt was discharged from [facility] at 1315 to a [facility] haul truck driver that was going to drive him to the [facility]. Pt was mildly anxious about his living situation, denies SI/HI and has been improving since admission. Pt not in any acute emotional or physical distress. Pt did not need nicotine replacement and understood his discharge instructions. Pt's valuables were inventoried and returned to him by [employer].
== END 2019-06-04 13:15 | disposition short-term general hospital (02) | DRG 885 ==
LOC: ADULT MH 19:18
PROVIDERS: ADMIT Psychiatry & Neurology Psychiatry; ATTEND Psychiatry & Neurology Psychiatry
DX: F31.4 Bipolar disorder, current episode depressed, severe, without psychotic features (principal); F15.10 Other stimulant abuse, uncomplicated; F12.10 Cannabis abuse, uncomplicated; F17.210 Nicotine dependence, cigarettes, uncomplicated; F60.9 Personality disorder, unspecified; Z59.0 Homelessness; Z83.3 Family history of diabetes mellitus; Z76.5 Malingerer [conscious simulation]
CPT/HCPCS: 36415; 80061; 83036; 87081; Z7610

== ENCOUNTER 2019-06-10 19:37 | Emergency (ER) | payer MEDICARE, MEDICAID ==
[~2019-06-10] VITALS: Ht 195.6 cm; Wt 94.0 kg
[~2019-06-10 19:37] MED LIST changes: -NICO-687 TD; +NO HOME MEDS; -POTA20TA19 PO; -TOP100T PO
[2019-06-10 20:51] VITALS: BP 132/86
== END 2019-06-10 20:58 | disposition home or self-care (01) ==
LOC: ER 19:38
DX: F15.10 Other stimulant abuse, uncomplicated (principal); R68.83 Chills (without fever); F41.9 Anxiety disorder, unspecified; F31.9 Bipolar disorder, unspecified; F12.90 Cannabis use, unspecified, uncomplicated; F14.90 Cocaine use, unspecified, uncomplicated; F11.90 Opioid use, unspecified, uncomplicated; Z59.0 Homelessness
CPT/HCPCS: 99281

== ENCOUNTER 2019-06-13 00:06 | Emergency (ER) | payer MEDICARE, MEDICAID ==
[~2019-06-13] VITALS: Ht 195.6 cm; Wt 90.9 kg
[2019-06-13 00:46] VITALS: BP 145/89
== END 2019-06-13 00:48 | disposition home or self-care (01) ==
LOC: ER 00:07
DX: R04.0 Epistaxis (principal); F31.9 Bipolar disorder, unspecified; F41.9 Anxiety disorder, unspecified; F12.90 Cannabis use, unspecified, uncomplicated; F15.90 Other stimulant use, unspecified, uncomplicated; F14.90 Cocaine use, unspecified, uncomplicated; F11.90 Opioid use, unspecified, uncomplicated; Z59.0 Homelessness; Z79.899 Other long term (current) drug therapy
CPT/HCPCS: 99281

== ENCOUNTER 2019-06-13 19:21 | Emergency (ER) | payer MEDICARE, MEDICAID ==
[~2019-06-13] VITALS: Ht 195.6 cm; Wt 90.9 kg
[2019-06-13 19:27] VITALS: BP 139/81
== END 2019-06-13 20:10 | disposition home or self-care (01) ==
LOC: ER 19:22
DX: F32.9 Major depressive disorder, single episode, unspecified (principal); F41.9 Anxiety disorder, unspecified; F15.90 Other stimulant use, unspecified, uncomplicated; F12.90 Cannabis use, unspecified, uncomplicated; F14.90 Cocaine use, unspecified, uncomplicated; F11.90 Opioid use, unspecified, uncomplicated; Z59.0 Homelessness
CPT/HCPCS: 99284

== ENCOUNTER 2019-06-17 07:51 | Emergency (ER) | payer MEDICARE, MEDICAID ==
[~2019-06-17] VITALS: Ht 198.1 cm; Wt 92.5 kg
[2019-06-17 07:53] VITALS: BP 119/78
--- NOTE | 2019-06-17 08:15 | NUR ---
PT STATES HE HAS AN UGLY FACE AND DOESN'T KNOW WHY EVERYONE IS LYING TO HIM, SAID THIS DURING PROVIDER ASSESSMENT.
[2019-06-17 09:16] LABS: BASOPHILS # (AUTO) 0.1 X10'3 (0-0.2); BASOPHILS % (AUTO) 1.2 % (0-1); EOSINOPHILS # (AUTO) 0.2 X10'3 (0-0.9); EOSINOPHILS % (AUTO) 2.7 % (0-6); HEMATOCRIT 41.8 % (42.0-52.0); LYMPHOCYTES % (AUTO) 34.5 % (21-51); MEAN CORPUSCULAR HEMOGLOBIN 29.9 PG (27.0-31.0); MEAN CORPUSCULAR HGB CONC 33.6 g/dL (33.0-36.5); MEAN CORPUSCULAR VOLUME 89.2 FL (78-98); MEAN PLATELET VOLUME 6.9 FL (7.4-10.4); MONOCYTES # (AUTO) 0.4 X10'3 (0-0.9); MONOCYTES % (AUTO) 7.6 % (2-12); NEUTROPHILS # (AUTO) 3.1 X10'3 (1.8-7.7); PLATELET COUNT 430 X10'3 (140-440); RED BLOOD COUNT 4.69 X10'6 (4.70-6.10); RED CELL DISTRIBUTION WIDTH 14.2 % (11.5-14.5); WHITE BLOOD COUNT 5.7 X10'3 (4.5-11.0)
[2019-06-17 09:30] LABS: ALANINE AMINOTRANSFERASE 25 U/L (12-78); ALBUMIN 3.6 G/DL (3.4-5.0); ALBUMIN/GLOBULIN RATIO 1.1 (1.1-1.5); ALKALINE PHOSPHATASE 60 IU/L (46-116); ANION GAP 2 (8-16); ASPARTATE AMINO TRANSFERASE 14 U/L (10-37); BILIRUBIN,TOTAL 0.3 MG/DL (0.1-1.0); BLOOD UREA NITROGEN 10 MG/DL (7-18); BUN/CREATININE RATIO 11.6 (5.4-32.0); CALCIUM 8.6 MG/DL (8.5-10.1); CHLORIDE 108 MMOL/L (99-107); CREATININE 0.86 MG/DL (0.60-1.10); ETHANOL < 0.010 GM/DL (0.0-0.010); GLUCOSE 61 MG/DL (70-104); POTASSIUM 3.9 MMOL/L (3.5-5.1); SODIUM 143 MMOL/L (135-145); TOTAL CARBON DIOXIDE 33.1 MMOL/L (24-32); TOTAL PROTEIN 6.8 G/DL (6.4-8.2); eGFR > 90 ML/MIN
[2019-06-17 10:33] LABS: URINE AMPHETAMINE SCREEN POSITIVE (Neg); URINE BARBITUATE SCREEN NEGATIVE (Neg); URINE BENZODIAZEPINES SCREEN NEGATIVE (Neg); URINE CANNABINOID SCREEN NEGATIVE (Neg); URINE COCAINE SCREEN NEGATIVE (Neg); URINE METHADONE SCREEN NEGATIVE (Neg); URINE OPIATE SCREEN NEGATIVE (Neg); URINE PHENCYCLIDINE SCREEN NEGATIVE (Neg)
--- NOTE | 2019-06-17 12:42 | NUR ---
PACKET FAXED TO [facility]
[2019-06-17] MEDS ORDERED: chlordiazePOXIDE 25mg capsule PO ONE (13:45)
--- NOTE | 2019-06-17 14:23 | NUR ---
PT IS UP OUT OF ROOM IN FRONT OF DR STATION, PT IS ASKING FOR MEDICATION. PT REPORTS THAT HE IS UPSET THAT HE MIGHT LOOSE HIS B[facility].
--- NOTE | 2019-06-17 16:06 | NUR ---
[facility] in room with patient at this time.
--- NOTE | 2019-06-17 16:08 | NUR ---
[facility] AT BEDSIDE EVALAUTING PT.
--- NOTE | 2019-06-17 16:20 | NUR ---
MD HARDING PATIENT. PT GIVEN DC PAPERS AND BELONGINGS
== END 2019-06-17 16:22 ==
LOC: ER 07:52
DX: F31.9 Bipolar disorder, unspecified (principal); R45.851 Suicidal ideations; F15.10 Other stimulant abuse, uncomplicated; F41.9 Anxiety disorder, unspecified; F12.90 Cannabis use, unspecified, uncomplicated; F14.90 Cocaine use, unspecified, uncomplicated; F11.90 Opioid use, unspecified, uncomplicated; Z79.899 Other long term (current) drug therapy; Z59.0 Homelessness
CPT/HCPCS: 36415; 80053; 80305; 80320; 85025; 99284

== ENCOUNTER 2019-06-27 04:39 | Emergency (ER) | payer MEDICARE, MEDICAID ==
[~2019-06-27] VITALS: Ht 170.2 cm; Wt 90.9 kg
[2019-06-27 04:42] VITALS: BP 148/89
[2019-06-27] MEDS ORDERED: loperamide 2mg capsule PO ONE (05:00)
[2019-06-27] MEDS ORDERED: pantoprazole 40mg Tablet.DR PO ONE (05:00)
== END 2019-06-27 05:06 | disposition home or self-care (01) ==
LOC: ER 04:39
DX: R19.7 Diarrhea, unspecified (principal); R10.84 Generalized abdominal pain; F12.90 Cannabis use, unspecified, uncomplicated; F15.90 Other stimulant use, unspecified, uncomplicated; F14.90 Cocaine use, unspecified, uncomplicated; F11.90 Opioid use, unspecified, uncomplicated; F31.9 Bipolar disorder, unspecified; F41.9 Anxiety disorder, unspecified; Z59.0 Homelessness; Z79.899 Other long term (current) drug therapy
CPT/HCPCS: 99283

== ENCOUNTER 2019-06-27 22:21 | Emergency (ER) | payer MEDICARE, MEDICAID ==
[~2019-06-27] VITALS: Ht 195.6 cm; Wt 90.9 kg
[2019-06-27 22:22] VITALS: BP 133/83
[2019-06-27] MEDS ORDERED: hydrOXYzine 25 MG tablet PO ONE (22:45)
== END 2019-06-27 22:56 | disposition home or self-care (01) ==
LOC: ER 22:22
DX: F41.9 Anxiety disorder, unspecified (principal); F31.9 Bipolar disorder, unspecified; F12.90 Cannabis use, unspecified, uncomplicated; F15.90 Other stimulant use, unspecified, uncomplicated; F14.90 Cocaine use, unspecified, uncomplicated; F11.90 Opioid use, unspecified, uncomplicated; Z59.0 Homelessness; Z79.899 Other long term (current) drug therapy
CPT/HCPCS: 99284; Z7610

== ENCOUNTER 2019-06-30 10:48 | Emergency (ER) | payer MEDICARE, MEDICAID ==
[~2019-06-30] VITALS: Ht 195.6 cm; Wt 91.7 kg
[2019-06-30 10:55] VITALS: BP 123/89
== END 2019-06-30 11:38 | disposition home or self-care (01) ==
LOC: ER 10:49
DX: F15.10 Other stimulant abuse, uncomplicated (principal); F41.9 Anxiety disorder, unspecified; F31.9 Bipolar disorder, unspecified; F12.90 Cannabis use, unspecified, uncomplicated; F14.90 Cocaine use, unspecified, uncomplicated; F11.90 Opioid use, unspecified, uncomplicated; Z59.0 Homelessness; Z79.899 Other long term (current) drug therapy
CPT/HCPCS: 93005; 99283

== ENCOUNTER 2019-07-04 10:35 | Emergency (ER) | payer MEDICARE, MEDICAID ==
[~2019-07-04] VITALS: Ht 195.6 cm; Wt 95.5 kg
[2019-07-04 11:06] LABS: BASOPHILS # (AUTO) 0.1 X10'3 (0-0.2); BASOPHILS % (AUTO) 0.6 % (0-1); EOSINOPHILS # (AUTO) 0.2 X10'3 (0-0.9); EOSINOPHILS % (AUTO) 2.1 % (0-6); HEMATOCRIT 39.6 % (42.0-52.0); HEMOGLOBIN 13.4 g/dl (14.0-17.9); LYMPHOCYTES # (AUTO) 1.9 X10'3 (1.1-4.8); LYMPHOCYTES % (AUTO) 18.3 % (21-51); MEAN CORPUSCULAR HEMOGLOBIN 29.9 PG (27.0-31.0); MEAN CORPUSCULAR VOLUME 88.2 FL (78-98); MEAN PLATELET VOLUME 6.9 FL (7.4-10.4); MONOCYTES # (AUTO) 0.6 X10'3 (0-0.9); MONOCYTES % (AUTO) 5.5 % (2-12); NEUTROPHILS # (AUTO) 7.8 X10'3 (1.8-7.7); NEUTROPHILS % (AUTO) 73.5 % (42-75); PLATELET COUNT 413 X10'3 (140-440); RED BLOOD COUNT 4.49 X10'6 (4.70-6.10); RED CELL DISTRIBUTION WIDTH 13.8 % (11.5-14.5); WHITE BLOOD COUNT 10.7 X10'3 (4.5-11.0)
[2019-07-04 11:32] LABS: ALANINE AMINOTRANSFERASE 31 U/L (12-78); ALBUMIN 3.5 G/DL (3.4-5.0); ALBUMIN/GLOBULIN RATIO 1.1 (1.1-1.5); ALKALINE PHOSPHATASE 71 IU/L (46-116); ANION GAP 6 (8-16); ASPARTATE AMINO TRANSFERASE 19 U/L (10-37); BILIRUBIN,TOTAL 0.3 MG/DL (0.1-1.0); BLOOD UREA NITROGEN 9 MG/DL (7-18); CALCIUM 8.1 MG/DL (8.5-10.1); CHLORIDE 106 MMOL/L (99-107); CREATININE 0.75 MG/DL (0.60-1.10); GLUCOSE 87 MG/DL (70-104); SODIUM 143 MMOL/L (135-145); TOTAL CARBON DIOXIDE 30.8 MMOL/L (24-32); TOTAL PROTEIN 6.8 G/DL (6.4-8.2); eGFR > 90 ML/MIN
[2019-07-04 11:35] LABS: POTASSIUM 2.9 MMOL/L (3.5-5.1)
[2019-07-04] MEDS ORDERED: potassium Cl 20 mEq SR tablet PO STA (11:39)
[2019-07-04 12:02] LABS: ETHANOL < 0.010 GM/DL (0.0-0.010)
--- NOTE | 2019-07-04 12:26 | NUR ---
PT GAVE URINE SAMPLE, STARTED TO BECOME ANXIOUS, WAS ABLE TO TALK TO PT AND CALM HIM DOWN.
[2019-07-04] MEDS: LORazepam 2 mg/ml vial IM PRN ×2 (12:44→19:05)
--- NOTE | 2019-07-04 12:45 | NUR ---
PT BECOMING ANXIOUS, NO FOLLOWING DIRECTIONS. ORDER RECEIVED FROM DR GAMBLE FOR ATIVAN 1MG IM Q4H PRN AGGITATION AND ADMINISTERED WITH SECURITY STANDING BY
[2019-07-04 12:47] LABS: CLARITY,URINE CLEAR (Clear); COLOR,URINE STRAW (Yellow); GLUCOSE, URINE NEGATIVE (Neg); KETONES,URINE NEGATIVE (Neg); LEUKOCYTE ESTERASE ,URINE NEGATIVE (Neg); NITRITES, URINE NEGATIVE (Neg); OCCULT BLOOD,URINE SMALL (Neg); PROTEIN,URINE NEGATIVE (Neg); UA COLLECTION TYPE CLN CATCH MIDSTREAM; UROBILINOGEN,URINE 0.2 E.U/dL (0.2-1.0)
[2019-07-04 12:53] LABS: BACTERIA,URINE FEW /HPF (Neg); RBC,URINE 0-2 /HPF (0-2); SQUAMOUS EPITHELIAL CELL,UR NONE SEEN /LPF (FEW); WBC,URINE 0-4 /HPF (0-4)
[2019-07-04 13:03] LABS: URINE AMPHETAMINE SCREEN POSITIVE (Neg); URINE BARBITUATE SCREEN NEGATIVE (Neg); URINE BENZODIAZEPINES SCREEN NEGATIVE (Neg); URINE CANNABINOID SCREEN NEGATIVE (Neg); URINE COCAINE SCREEN NEGATIVE (Neg); URINE METHADONE SCREEN NEGATIVE (Neg); URINE OPIATE SCREEN NEGATIVE (Neg); URINE PHENCYCLIDINE SCREEN NEGATIVE (Neg)
--- NOTE | 2019-07-04 13:43 | NUR ---
SAFETY LUNCH TRAY DELIVERED TO BEDSIDE
--- NOTE | 2019-07-04 14:46 | NUR ---
PACKET FAXED TO [facility]
--- NOTE | 2019-07-04 16:28 | NUR ---
PT SLEEPING, NO S/S OF DISTRESS NOTED
--- NOTE | 2019-07-04 18:51 | NUR ---
ASSUMED CARE OF PATIENT WHO IS SITTING UPRIGHT IN BED , WHO TENDS TO GET UP AND WANDER BACK AND FORTH TO BATHROOM . REDIRECTED BACK TO HIS SPACE AND ENCOURAGED DINNER . PT ASKED TO TALK . " ASKED IF HE WAS SAFE AND IF HE WAS A GOOD SOUL " REASSURED PT HE IS SAFE AND THAT ALL PEOPLE ARE GOOD SOULS, IF THEY MAKE GOOD CHOICES. " REMINDED PT THAT HE NEEDS TO STAY IN HIS AREA ADN THATIF HE IS FEELING ANXIOUS WE ARE HERE TO HELP >
--- NOTE | 2019-07-04 18:55 | NUR ---
PT CALLED OTHER NURSING STAFF TO BEDSIDE ASKING IF HIS FOOD IS SAFE TO EAT . [facility] RN CARMITA REASSURED PT THE FOOD IS SAFE AND THAT IF HE EATS HE WILL FEEL BETTER
--- NOTE | 2019-07-04 19:08 | NUR ---
PT FIDGETY AND BEGINNING TO RAISE HIS VOICE. REDIREDCTED PT BACK TO HIS SPACE AND MEDICATED HIM FOR ANXITY WITH 1 MG OF ATIVAN TO THE RIGHT DELTOID . PT THEN SAT AT BED SIDE ATTEMPTING TO EAT . ASKING " I DONT KNOW IF SHOULD EAT OR NOT , EMT REDIRECTED PT TO MAKE THE CHOICE TO EAT OR NOT . PT SAT BACK IN BED LOOKING AT HIS TRAY
--- NOTE | 2019-07-04 19:30 | NUR ---
PT INCREASLY GETTING AGITATED RAID SPEECH FUDGETY RAISING VOICE SECURITY AT BEDSIDE X3 REMINDING PT TO MAKE GOOD CHOICE , LOWER HIS VOICE, AND REMAIN IN HIS SPACE. PT HAVING A DIFFICULT TIME REMAINING CALM . SPOKE WITH ROBBY Emmanuel FOR B52 TO CALM PATIENT
[2019-07-04] MEDS ORDERED: haloperidol lactate 5mg/ml inj IM ONE (19:40)
[2019-07-04] MEDS ORDERED: diphenhydrAMINE 50 mg/ml inj IM ONE (19:40)
--- NOTE | 2019-07-04 19:45 | NUR ---
MEDICATED PATIENT WITH 50 MG OF BENADRYLE AND 5 MG HALDOL IM IN EACH DELTOID
--- NOTE | 2019-07-04 19:55 | NUR ---
PT NOW LAYIN GDOWN IN BED ON RIGHT SIDE RESTING . RESP UNLABORED . WILL CONTINUE TO REASSESS AND MONITOR
--- NOTE | 2019-07-04 20:07 | NUR ---
Maico snyder in [facility] - 07/04/19 at 2244 by JUDITH MED REC FAXED TO PHARMACY DIET ORDER FAXED TO DIETARY
--- NOTE | 2019-07-04 20:55 | NUR ---
PT SLEEPING PEACFULLY ON HIS BACK , RESPIRATIONS UNLABORED , IN THE DIRECT LINE OF SIGHT OF STAFF WILL CONTINUE TO MONITOR AND REASSES NEEDED
--- NOTE | 2019-07-04 21:42 | NUR ---
PT SLEEPING ON HIS BACK WITH KNESS BENT , HOB ELEVATED 30 DEGREES RESPIRATIONS UNLABORED WILL CONTINUE TO REASSESS AND MONITOR
--- NOTE | 2019-07-04 22:19 | NUR ---
PT SLEEPING PEACFULLY AT THIS TIOME RESPIRATIONS UNLABORED. INDEPENDENTLY REPOSITONS SELF / SNORING FROM TIME TO TIME
--- NOTE | 2019-07-04 23:10 | NUR ---
PT SLEEPING ON HIS RIGHT SIDE RESPIRATIONS UNLABORED WILL CONTINUE TO MONITOR
[2019-07-04] MEDS ORDERED: NO HOME MEDS (23:43)
--- NOTE | 2019-07-05 00:51 | NUR ---
PT SLEEPING PEACFULLY ON HIS LEFT SIDE . RESPIRATIONS UNLABORED WILL CONTINUE TO MONITOR AND REASSESS
--- NOTE | 2019-07-05 02:12 | NUR ---
PT SLEEPING PEACFULLY ON LEFT SIDE SELF POSITIONS AND COVERS HIMSELF WITH BLANKET WILL CONTINUE TO MONITOR AND REASSESS
--- NOTE | 2019-07-05 03:00 | NUR ---
PT AWOKE , STRETCHED , COVERED HIMSELF WITH A BLANKET AND TURNED OVER TO HIS LEFT SIDE AND WENT BACK TO SLEEP .
--- NOTE | 2019-07-05 04:08 | NUR ---
PT STILL SLEEPING PEACFULLY ON HIS LEFT SIDE RESP EVEN UNLABORED JADE CONTINUE TO ASSESS AND MONITOR
[2019-07-05 05:55] VITALS: BP 97/64
--- NOTE | 2019-07-05 06:41 | NUR ---
pt sleeping on left side no distress noted.
--- NOTE | 2019-07-05 07:51 | NUR ---
pt resting on back, eyes closed rr equal and unlabored
--- NOTE | 2019-07-05 08:37 | NUR ---
Pt alert eating breakfast talking with [facility] right now. No distress noted.
--- NOTE | 2019-07-05 10:27 | NUR ---
pt sleeping on right side, no distress noted.
--- NOTE | 2019-07-05 10:40 | NUR ---
[facility] at bedside to eval pt.
--- NOTE | 2019-07-05 10:58 | NUR ---
[facility] AT FOR EVAL
== END 2019-07-05 14:49 | disposition home or self-care (01) ==
LOC: ER 10:35
DX: R45.851 Suicidal ideations (principal); F15.10 Other stimulant abuse, uncomplicated; E87.6 Hypokalemia; F12.90 Cannabis use, unspecified, uncomplicated; F14.90 Cocaine use, unspecified, uncomplicated; F11.90 Opioid use, unspecified, uncomplicated; F41.9 Anxiety disorder, unspecified; F31.9 Bipolar disorder, unspecified; F10.99 Alcohol use, unspecified with unspecified alcohol-induced disorder; Z59.0 Homelessness; Y90.9 Presence of alcohol in blood, level not specified
CPT/HCPCS: 36415; 71045; 80053; 80305; 80320; 81001; 84443; 85025; 96372; 99285; J1200; J1630; J2060

== ENCOUNTER 2019-07-31 19:29 | Emergency (ER) | payer MEDICARE, MEDICAID ==
[~2019-07-31] VITALS: Ht 198.1 cm; Wt 98.0 kg
--- NOTE | 2019-07-31 19:36 | NUR ---
JEWELRY ENGRAVER AWARE OF PT
[2019-07-31 21:17] LABS: BASOPHILS # (AUTO) 0.1 X10'3 (0-0.2); BASOPHILS % (AUTO) 0.6 % (0-1); EOSINOPHILS # (AUTO) 0.3 X10'3 (0-0.9); EOSINOPHILS % (AUTO) 2.6 % (0-6); HEMATOCRIT 42.6 % (42.0-52.0); HEMOGLOBIN 14.5 g/dl (14.0-17.9); LYMPHOCYTES # (AUTO) 2.1 X10'3 (1.1-4.8); LYMPHOCYTES % (AUTO) 19.9 % (21-51); MEAN CORPUSCULAR HEMOGLOBIN 29.9 PG (27.0-31.0); MEAN CORPUSCULAR HGB CONC 33.9 g/dL (33.0-36.5); MEAN PLATELET VOLUME 6.7 FL (7.4-10.4); MONOCYTES # (AUTO) 0.7 X10'3 (0-0.9); MONOCYTES % (AUTO) 6.7 % (2-12); NEUTROPHILS # (AUTO) 7.4 X10'3 (1.8-7.7); NEUTROPHILS % (AUTO) 70.2 % (42-75); PLATELET COUNT 357 X10'3 (140-440); RED BLOOD COUNT 4.84 X10'6 (4.70-6.10); RED CELL DISTRIBUTION WIDTH 14.4 % (11.5-14.5); WHITE BLOOD COUNT 10.6 X10'3 (4.5-11.0)
[2019-07-31 21:30] LABS: ALANINE AMINOTRANSFERASE 24 U/L (12-78); ALBUMIN 3.9 G/DL (3.4-5.0); ALBUMIN/GLOBULIN RATIO 1.3 (1.1-1.5); ALKALINE PHOSPHATASE 70 IU/L (46-116); ANION GAP 6 (8-16); ASPARTATE AMINO TRANSFERASE 17 U/L (10-37); BILIRUBIN,TOTAL 0.5 MG/DL (0.1-1.0); BLOOD UREA NITROGEN 24 MG/DL (7-18); BUN/CREATININE RATIO 24.7 (5.4-32.0); CALCIUM 8.8 MG/DL (8.5-10.1); CHLORIDE 108 MMOL/L (99-107); CREATININE 0.97 MG/DL (0.60-1.10); ETHANOL < 0.010 GM/DL (0.0-0.010); GLUCOSE 96 MG/DL (70-104); POTASSIUM 3.8 MMOL/L (3.5-5.1); SODIUM 144 MMOL/L (135-145); eGFR 82 ML/MIN
--- NOTE | 2019-07-31 21:39 | NUR ---
The patient self presented to the ER and is reporting that he feels depressed and suicidal. He stated that he was staying at the [facility] for the past month but was kicked out today because he was using methamphetamine. He stated, "I did a lot of dope today. A lot of meth" He denies auditory or visual hallucinations. He was cooperative with the assessment. He was evaluated by Dr. Dunn. He stated that he takes no medications. He was requested to give a urine sample.
[2019-07-31 22:06] LABS: URINE AMPHETAMINE SCREEN POSITIVE (Neg); URINE BARBITUATE SCREEN NEGATIVE (Neg); URINE BENZODIAZEPINES SCREEN NEGATIVE (Neg); URINE CANNABINOID SCREEN POSITIVE (Neg); URINE COCAINE SCREEN NEGATIVE (Neg); URINE METHADONE SCREEN NEGATIVE (Neg); URINE OPIATE SCREEN NEGATIVE (Neg); URINE PHENCYCLIDINE SCREEN NEGATIVE (Neg)
--- NOTE | 2019-08-01 00:23 | NUR ---
packet faced to [facility]
[2019-08-01 05:35] VITALS: BP 124/78
--- NOTE | 2019-08-01 06:23 | NUR ---
The patient has slept as well as can be expected. He has been cooperative with staff. He realized that it was after 07/31 and that [facility] and he stated that he would be OK but he was made aware of the [id number].
--- NOTE | 2019-08-01 06:35 | NUR ---
resting quietly in bed.
--- NOTE | 2019-08-01 07:42 | NUR ---
pt sat up in bed stating he feels much better, he's not suicidal, and he'd like to be released. RN assured him [facility] by to [facility] him and we would get a better plan of care. pt understood.
--- NOTE | 2019-08-01 08:25 | NUR ---
Dr. Lawson at bedside. Pt has no needs at this time. Currenty resting quietly in bed. Maico with [facility] to evaluate pt this AM.
--- NOTE | 2019-08-01 10:39 | NUR ---
PT INFORMED HE HAS CLONIDONE AT PHARMACY AND PT STATES HE DOES NOT WANT MED, CALLED PHARMACY TO UPDATE TO DESTROY MED.
== END 2019-08-01 10:42 | disposition home or self-care (01) ==
LOC: ER 19:29
DX: R45.851 Suicidal ideations (principal); F31.9 Bipolar disorder, unspecified; F41.9 Anxiety disorder, unspecified; F12.90 Cannabis use, unspecified, uncomplicated; F15.90 Other stimulant use, unspecified, uncomplicated; F11.90 Opioid use, unspecified, uncomplicated; F14.90 Cocaine use, unspecified, uncomplicated; F17.200 Nicotine dependence, unspecified, uncomplicated; Z59.0 Homelessness
CPT/HCPCS: 36415; 80053; 80305; 80320; 85025; 99284

== ENCOUNTER 2019-08-01 20:38 | Emergency (ER) | payer MEDICARE, MEDICAID ==
[~2019-08-01] VITALS: Ht 195.6 cm; Wt 90.9 kg
[2019-08-01 20:46] VITALS: BP 149/90
== END 2019-08-01 22:51 | disposition left against medical advice (07) ==
LOC: ER 20:38
DX: L53.9 Erythematous condition, unspecified (principal); Z53.21 Procedure and treatment not carried out due to patient leaving prior to being seen by health care provider

== ENCOUNTER 2019-08-03 02:01 | Emergency (ER) | payer MEDICARE, MEDICAID ==
[~2019-08-03] VITALS: Ht 198.1 cm; Wt 95.0 kg
[2019-08-03 02:04] VITALS: BP 134/81
[2019-08-03] MEDS ORDERED: ibuprofen 200mg tablet PO ONE (02:05)
== END 2019-08-03 02:12 | disposition home or self-care (01) ==
LOC: ER 02:02
DX: S80.811A Abrasion, right lower leg, initial encounter (principal); F41.9 Anxiety disorder, unspecified; F31.9 Bipolar disorder, unspecified; F17.210 Nicotine dependence, cigarettes, uncomplicated; F12.90 Cannabis use, unspecified, uncomplicated; F15.90 Other stimulant use, unspecified, uncomplicated; F11.90 Opioid use, unspecified, uncomplicated; F14.90 Cocaine use, unspecified, uncomplicated; Z59.0 Homelessness; X58.XXXA Exposure to other specified factors, initial encounter; Y93.89 Activity, other specified; Y92.89 Other specified places as the place of occurrence of the external cause; Y99.8 Other external cause status
CPT/HCPCS: 99282

== ENCOUNTER 2019-08-13 09:49 | Emergency (ER) | payer MEDICARE, MEDICAID ==
[~2019-08-13] VITALS: Ht 195.6 cm; Wt 80.0 kg
[2019-08-13] MEDS ORDERED: ondansetron 4mg rapidly disintigrating tab PO ONE (10:10)
[2019-08-13] MEDS ORDERED: ibuprofen tablet 400 MG TABLET PO ONE (10:30)
[2019-08-13 10:38] LABS: BASOPHILS % (AUTO) 0.4 % (0-1); EOSINOPHILS # (AUTO) 0.1 X10'3 (0-0.9); EOSINOPHILS % (AUTO) 1.5 % (0-6); HEMATOCRIT 43.3 % (42.0-52.0); LYMPHOCYTES # (AUTO) 1.3 X10'3 (1.1-4.8); LYMPHOCYTES % (AUTO) 16.8 % (21-51); MEAN CORPUSCULAR HEMOGLOBIN 30.1 PG (27.0-31.0); MEAN CORPUSCULAR HGB CONC 34.7 g/dL (33.0-36.5); MEAN CORPUSCULAR VOLUME 86.7 FL (78-98); MEAN PLATELET VOLUME 6.6 FL (7.4-10.4); MONOCYTES # (AUTO) 0.6 X10'3 (0-0.9); MONOCYTES % (AUTO) 8.3 % (2-12); NEUTROPHILS # (AUTO) 5.7 X10'3 (1.8-7.7); PLATELET COUNT 394 X10'3 (140-440); RED CELL DISTRIBUTION WIDTH 14.1 % (11.5-14.5); WHITE BLOOD COUNT 7.8 X10'3 (4.5-11.0)
[2019-08-13 10:49] VITALS: BP 117/76
[2019-08-13 10:57] LABS: ALANINE AMINOTRANSFERASE 26 U/L (12-78); ALBUMIN 3.3 G/DL (3.4-5.0); ALBUMIN/GLOBULIN RATIO 0.9 (1.1-1.5); ALKALINE PHOSPHATASE 60 IU/L (46-116); ANION GAP 9 (8-16); ASPARTATE AMINO TRANSFERASE 26 U/L (10-37); BILIRUBIN,TOTAL 0.3 MG/DL (0.1-1.0); BLOOD UREA NITROGEN 10 MG/DL (7-18); BUN/CREATININE RATIO 11.9 (5.4-32.0); CALCIUM 8.8 MG/DL (8.5-10.1); CHLORIDE 105 MMOL/L (99-107); CREATININE 0.84 MG/DL (0.60-1.10); GLUCOSE 96 MG/DL (70-104); LIPASE 122 U/L (73-393); POTASSIUM 3.5 MMOL/L (3.5-5.1); SODIUM 141 MMOL/L (135-145); TOTAL CARBON DIOXIDE 27.4 MMOL/L (24-32); TOTAL PROTEIN 6.9 G/DL (6.4-8.2); eGFR > 90 ML/MIN
== END 2019-08-13 11:16 | disposition home or self-care (01) ==
LOC: ER 09:49
DX: R10.84 Generalized abdominal pain (principal); R11.2 Nausea with vomiting, unspecified; F12.90 Cannabis use, unspecified, uncomplicated; F15.90 Other stimulant use, unspecified, uncomplicated; F14.90 Cocaine use, unspecified, uncomplicated; F11.90 Opioid use, unspecified, uncomplicated; F17.200 Nicotine dependence, unspecified, uncomplicated; Z59.0 Homelessness
CPT/HCPCS: 36415; 80053; 83690; 85025; 99283

== ENCOUNTER 2019-09-29 11:12 | Emergency (ER) | payer MEDICARE, MEDICAID ==
[~2019-09-29] VITALS: Ht 195.6 cm; Wt 90.8 kg
[2019-09-29 11:33] VITALS: BP 149/99
[2019-09-29] MEDS ORDERED: KETO120S3 TP (12:05)
[2019-09-29] MEDS ORDERED: DIPH25CA83 PO (12:05)
== END 2019-09-29 12:14 | disposition home or self-care (01) ==
LOC: ER 11:12
DX: B36.0 Pityriasis versicolor (principal); F41.9 Anxiety disorder, unspecified; F31.9 Bipolar disorder, unspecified; F12.90 Cannabis use, unspecified, uncomplicated; F15.90 Other stimulant use, unspecified, uncomplicated; F11.90 Opioid use, unspecified, uncomplicated; F14.90 Cocaine use, unspecified, uncomplicated; Z59.0 Homelessness; Z79.899 Other long term (current) drug therapy
CPT/HCPCS: 99283

== ENCOUNTER 2019-09-29 20:17 | Emergency (ER) | payer MEDICARE, MEDICAID ==
[~2019-09-29] VITALS: Ht 195.6 cm; Wt 90.9 kg
[~2019-09-29 20:17] MED LIST changes: +DIPH25CA83 PO; +KETO120S3 TP
[2019-09-29 20:20] VITALS: BP 153/106
[2019-09-29] MEDS ORDERED: LORazepam 1 MG tablet PO ONE (20:25)
== END 2019-09-29 20:27 | disposition home or self-care (01) ==
LOC: ER 20:18
DX: F15.10 Other stimulant abuse, uncomplicated (principal); F31.9 Bipolar disorder, unspecified; F41.9 Anxiety disorder, unspecified; F12.90 Cannabis use, unspecified, uncomplicated; F14.90 Cocaine use, unspecified, uncomplicated; F11.90 Opioid use, unspecified, uncomplicated; Z59.0 Homelessness
CPT/HCPCS: 99283

== ENCOUNTER 2019-10-13 01:57 | Emergency (ER) | payer MEDICARE, MEDICAID ==
[~2019-10-13] VITALS: Ht 195.6 cm; Wt 90.9 kg
[2019-10-13 02:41] LABS: CLARITY,URINE CLEAR (Clear); COLOR,URINE YELLOW (Yellow); GLUCOSE, URINE NEGATIVE (Neg); KETONES,URINE NEGATIVE (Neg); LEUKOCYTE ESTERASE ,URINE NEGATIVE (Neg); NITRITES, URINE NEGATIVE (Neg); OCCULT BLOOD,URINE TRACE-INTACT (Neg); PROTEIN,URINE NEGATIVE (Neg)
[2019-10-13 02:43] LABS: EOSINOPHILS # (AUTO) 0.4 X10'3 (0-0.9); EOSINOPHILS % (AUTO) 3.7 % (0-6); MONOCYTES # (AUTO) 0.9 X10'3 (0-0.9); RED CELL DISTRIBUTION WIDTH 14.7 % (11.5-14.5); WHITE BLOOD COUNT 10.8 X10'3 (4.5-11.0)
[2019-10-13 02:45] LABS: BASOPHILS # (AUTO) 0.1 X10'3 (0-0.2); BASOPHILS % (AUTO) 0.5 % (0-1); HEMATOCRIT 43.7 % (42.0-52.0); HEMOGLOBIN 14.6 g/dl (14.0-17.9); LYMPHOCYTES # (AUTO) 2.9 X10'3 (1.1-4.8); LYMPHOCYTES % (AUTO) 26.7 % (21-51); MEAN CORPUSCULAR HEMOGLOBIN 29.5 PG (27.0-31.0); MEAN CORPUSCULAR HGB CONC 33.4 g/dL (33.0-36.5); MEAN CORPUSCULAR VOLUME 88.5 FL (78-98); NEUTROPHILS # (AUTO) 6.6 X10'3 (1.8-7.7); NEUTROPHILS % (AUTO) 61.1 % (42-75); PLATELET COUNT 383 X10'3 (140-440); RED BLOOD COUNT 4.94 X10'6 (4.70-6.10)
[2019-10-13 02:50] LABS: ALANINE AMINOTRANSFERASE 35 U/L (12-78); ALBUMIN 3.7 G/DL (3.4-5.0); ALBUMIN/GLOBULIN RATIO 1.1 (1.1-1.5); ALKALINE PHOSPHATASE 81 IU/L (46-116); ANION GAP 3 (8-16); ASPARTATE AMINO TRANSFERASE 40 U/L (10-37); BILIRUBIN,TOTAL 0.5 MG/DL (0.1-1.0); BLOOD UREA NITROGEN 19 MG/DL (7-18); CALCIUM 9.2 MG/DL (8.5-10.1); CHLORIDE 107 MMOL/L (99-107); CREATININE 0.95 MG/DL (0.60-1.10); ETHANOL < 0.010 GM/DL (0.0-0.010); GLUCOSE 90 MG/DL (70-104); POTASSIUM 3.8 MMOL/L (3.5-5.1); SODIUM 141 MMOL/L (135-145); TOTAL CARBON DIOXIDE 31.5 MMOL/L (24-32); TOTAL PROTEIN 7.2 G/DL (6.4-8.2); eGFR 84 ML/MIN
[2019-10-13 02:51] LABS: RBC,URINE 0-2 /HPF (0-2); UA COLLECTION TYPE CLN CATCH MIDSTREAM; WBC,URINE NONE SEEN /HPF (0-4)
[2019-10-13 02:52] LABS: BACTERIA,URINE NONE SEEN /HPF (Neg); SQUAMOUS EPITHELIAL CELL,UR NONE SEEN /LPF (FEW)
--- NOTE | 2019-10-13 03:03 | NUR ---
Assumed care from LAWANDA Elam who was this patients nurse in the main ER. Patient brought to bed 21. Patient is ambulatory and in no distress.
[2019-10-13 03:09] LABS: URINE AMPHETAMINE SCREEN POSITIVE (Neg); URINE BARBITUATE SCREEN NEGATIVE (Neg); URINE BENZODIAZEPINES SCREEN NEGATIVE (Neg); URINE CANNABINOID SCREEN POSITIVE (Neg); URINE COCAINE SCREEN NEGATIVE (Neg); URINE METHADONE SCREEN NEGATIVE (Neg); URINE OPIATE SCREEN NEGATIVE (Neg); URINE PHENCYCLIDINE SCREEN NEGATIVE (Neg)
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
[2019-10-13] MEDS ORDERED: LORA-269 PO (04:02)
[2019-10-13] MEDS ORDERED: LITH150C8 PO (04:03)
[2019-10-13] MEDS ORDERED: TRAZ-251 PO (04:05)
[2019-10-13] MEDS ORDERED: HYDR-3686 PO (04:08)
[2019-10-13] MEDS ORDERED: RISP1TAB3 PO (04:10)
[2019-10-13] MEDS ORDERED: RISP2TAB3 PO (04:11)
[2019-10-13] MEDS ORDERED: VILA1TAB2 PO (04:12)
[2019-10-13] MEDS ORDERED: BENZ1TAB7 PO (04:14)
[2019-10-13] MEDS ORDERED: DIAZ5TAB4 PO (04:15)
[2019-10-13 05:26] VITALS: BP 107/59
[2019-10-13] MEDS ORDERED: diazepam 5mg tablet PO PRN (07:25)
[2019-10-13] MEDS ORDERED: LORazepam 1 MG tablet PO SCH (08:00)
[2019-10-13] MEDS ORDERED: risperiDONE 0.5mg tablet PO SCH (08:00)
[2019-10-13] MEDS ORDERED: hydrOXYzine 25 MG tablet PO SCH (08:00)
--- NOTE | 2019-10-13 08:09 | NUR ---
pt ate breakfast and took all morning meds mood is plesent this morning
--- NOTE | 2019-10-13 08:25 | NUR ---
[facility] psychosocial assessment underway.
[2019-10-13] MEDS ORDERED: benztropine 1mg tablet PO SCH (21:00)
[2019-10-13] MEDS ORDERED: risperiDONE 2mg tablet PO SCH (21:00)
[2019-10-13] MEDS ORDERED: traZODone 50mg tablet PO SCH (21:00)
== END 2019-10-13 09:09 ==
LOC: ER 01:58
DX: R45.851 Suicidal ideations (principal); F15.10 Other stimulant abuse, uncomplicated; F41.9 Anxiety disorder, unspecified; F31.9 Bipolar disorder, unspecified; F12.90 Cannabis use, unspecified, uncomplicated; F11.90 Opioid use, unspecified, uncomplicated; F14.90 Cocaine use, unspecified, uncomplicated; Z59.0 Homelessness; Z79.899 Other long term (current) drug therapy
CPT/HCPCS: 36415; 80053; 80305; 80320; 81001; 85025; 99285; Z7610

== ENCOUNTER 2019-10-16 00:48 | Emergency (ER) | payer MEDICARE, MEDICAID ==
[~2019-10-16 00:48] MED LIST changes: +BENZ1TAB7 PO; -DIPH25CA83 PO; +HYDR-3686 PO; -KETO120S3 TP; +LITH150C8 PO; -NO HOME MEDS; +RISP1TAB3 PO; +RISP2TAB3 PO; +TRAZ-251 PO; +VILA1TAB2 PO
== END 2019-10-16 00:58 | disposition left against medical advice (07) ==
LOC: ER 00:49
DX: F15.10 Other stimulant abuse, uncomplicated (principal); R45.850 Homicidal ideations; F31.9 Bipolar disorder, unspecified; F41.9 Anxiety disorder, unspecified; F17.210 Nicotine dependence, cigarettes, uncomplicated; F12.90 Cannabis use, unspecified, uncomplicated; F14.90 Cocaine use, unspecified, uncomplicated; F11.90 Opioid use, unspecified, uncomplicated; Z79.899 Other long term (current) drug therapy; Z59.0 Homelessness
CPT/HCPCS: 99281

== ENCOUNTER 2019-12-11 03:51 | Emergency (ER) | payer MEDICARE, MEDICAID ==
[~2019-12-11] VITALS: Ht 195.6 cm; Wt 90.9 kg
[2019-12-11] MEDS ORDERED: ACET-1025 PO (04:18)
[2019-12-11] MEDS ORDERED: IBUP-1984 PO (04:18)
[2019-12-11] MEDS ORDERED: CYCL-1 PO (04:18)
[2019-12-11] MEDS ORDERED: acetaminophen 325mg tablet PO ONE (04:20)
[2019-12-11] MEDS ORDERED: ibuprofen tablet 400 MG TABLET PO ONE (04:20)
[2019-12-11] MEDS ORDERED: cyclobenzaprine 10mg tablet PO ONE (04:20)
--- NOTE | 2019-12-11 04:42 | NUR ---
pt eager to leave was asking for sweat shirt and food . refused tylenol and motrin and left unit before taking his fflexril . pt ambulated off unit steady gait ,
[2019-12-11 04:43] VITALS: BP 130/85
== END 2019-12-11 04:45 | disposition home or self-care (01) ==
LOC: ER 03:51
DX: M62.838 Other muscle spasm (principal); F41.9 Anxiety disorder, unspecified; F31.9 Bipolar disorder, unspecified; F12.90 Cannabis use, unspecified, uncomplicated; F15.90 Other stimulant use, unspecified, uncomplicated; F11.90 Opioid use, unspecified, uncomplicated; F14.90 Cocaine use, unspecified, uncomplicated; Z59.0 Homelessness; Z79.899 Other long term (current) drug therapy
CPT/HCPCS: 99283

== ENCOUNTER 2020-01-06 23:13 | Emergency (ER) | payer MEDICARE, MEDICAID ==
[~2020-01-06] VITALS: Ht 195.6 cm; Wt 90.9 kg
[~2020-01-06 23:13] MED LIST changes: +ACET-1025 PO; +CYCL-1 PO; +IBUP-1984 PO
[2020-01-06] MEDS ORDERED: LORazepam 1 MG tablet PO ONE (23:20)
[2020-01-06 23:30] VITALS: BP 141/88
== END 2020-01-06 23:32 | disposition home or self-care (01) ==
LOC: ER 23:14
DX: F31.9 Bipolar disorder, unspecified (principal); F41.9 Anxiety disorder, unspecified; F15.10 Other stimulant abuse, uncomplicated; F12.90 Cannabis use, unspecified, uncomplicated; F11.90 Opioid use, unspecified, uncomplicated; F14.90 Cocaine use, unspecified, uncomplicated; Z72.89 Other problems related to lifestyle; Z79.899 Other long term (current) drug therapy
CPT/HCPCS: 99283

== ENCOUNTER 2020-01-14 22:22 | Emergency (ER) | payer MEDICARE, MEDICAID ==
[~2020-01-14] VITALS: Ht 195.6 cm; Wt 90.0 kg
[~2020-01-14 22:22] MED LIST changes: -ACET-1025 PO; -IBUP-1984 PO
[2020-01-14] MEDS ORDERED: LORazepam 1 MG tablet PO ONE (23:00)
[2020-01-14 23:16] VITALS: BP 129/87
== END 2020-01-14 23:17 | disposition home or self-care (01) ==
LOC: ER 22:23
DX: F41.9 Anxiety disorder, unspecified (principal); F31.9 Bipolar disorder, unspecified; F12.90 Cannabis use, unspecified, uncomplicated; F15.90 Other stimulant use, unspecified, uncomplicated; F14.90 Cocaine use, unspecified, uncomplicated; F11.90 Opioid use, unspecified, uncomplicated; Z59.0 Homelessness; Z79.899 Other long term (current) drug therapy
CPT/HCPCS: 99283

== ENCOUNTER 2020-01-17 21:09 | Emergency (ER) | payer MEDICARE, MEDICAID ==
[~2020-01-17] VITALS: Ht 182.9 cm; Wt 72.7 kg
[2020-01-17 21:30] VITALS: BP 125/80
[2020-01-17] MEDS ORDERED: RISP2TAB3 PO (21:45)
[2020-01-17] MEDS ORDERED: TRAZ-251 PO (21:45)
[2020-01-17] MEDS ORDERED: LORazepam 1 MG tablet PO ONE (21:45)
[2020-01-17] MEDS ORDERED: RISP1TAB3 PO (21:45)
== END 2020-01-17 21:57 | disposition home or self-care (01) ==
LOC: ER 21:10
DX: F41.9 Anxiety disorder, unspecified (principal); Z76.0 Encounter for issue of repeat prescription; Z00.00 Encounter for general adult medical examination without abnormal findings; F31.9 Bipolar disorder, unspecified; F12.90 Cannabis use, unspecified, uncomplicated; F15.90 Other stimulant use, unspecified, uncomplicated; F11.90 Opioid use, unspecified, uncomplicated
CPT/HCPCS: 99283

== ENCOUNTER 2020-01-19 23:25 | Emergency (ER) | payer MEDICARE, MEDICAID ==
[~2020-01-19] VITALS: Ht 195.6 cm; Wt 88.5 kg
[2020-01-19] MEDS ORDERED: CEPH250T PO (23:52)
[2020-01-20] VITALS: BP 117/77
== END 2020-01-20 00:02 | disposition home or self-care (01) ==
LOC: ER 23:27
DX: L08.9 Local infection of the skin and subcutaneous tissue, unspecified (principal); F41.9 Anxiety disorder, unspecified; F31.9 Bipolar disorder, unspecified; F12.90 Cannabis use, unspecified, uncomplicated; F15.90 Other stimulant use, unspecified, uncomplicated; F14.90 Cocaine use, unspecified, uncomplicated; F11.90 Opioid use, unspecified, uncomplicated; Z79.899 Other long term (current) drug therapy
CPT/HCPCS: 99283

== ENCOUNTER 2020-01-29 08:23 | Emergency (ER) | payer MEDICARE, MEDICAID ==
[~2020-01-29] VITALS: Ht 195.6 cm; Wt 83.2 kg
[2020-01-29] MEDS ORDERED: aspirin 81mg tab.chew PO ONE (08:35)
[2020-01-29 09:03] LABS: BASOPHILS % (AUTO) 0.4 % (0-1); EOSINOPHILS # (AUTO) 0.1 X10'3 (0-0.9); EOSINOPHILS % (AUTO) 0.6 % (0-6); HEMATOCRIT 41.5 % (42.0-52.0); LYMPHOCYTES # (AUTO) 1.5 X10'3 (1.1-4.8); LYMPHOCYTES % (AUTO) 13.5 % (21-51); MEAN CORPUSCULAR HEMOGLOBIN 30.2 PG (27.0-31.0); MEAN CORPUSCULAR HGB CONC 33.9 g/dL (33.0-36.5); MEAN CORPUSCULAR VOLUME 89.2 FL (78-98); MEAN PLATELET VOLUME 6.8 FL (7.4-10.4); MONOCYTES # (AUTO) 0.7 X10'3 (0-0.9); MONOCYTES % (AUTO) 6.8 % (2-12); NEUTROPHILS # (AUTO) 8.5 X10'3 (1.8-7.7); NEUTROPHILS % (AUTO) 78.7 % (42-75); PLATELET COUNT 399 X10'3 (140-440); RED BLOOD COUNT 4.65 X10'6 (4.70-6.10); RED CELL DISTRIBUTION WIDTH 14.1 % (11.5-14.5); WHITE BLOOD COUNT 10.8 X10'3 (4.5-11.0)
[2020-01-29 09:13] LABS: ALANINE AMINOTRANSFERASE 35 U/L (12-78); ALBUMIN 4.1 G/DL (3.4-5.0); ALBUMIN/GLOBULIN RATIO 1.1 (1.1-1.5); ALKALINE PHOSPHATASE 65 IU/L (46-116); ANION GAP 7 (8-16); ASPARTATE AMINO TRANSFERASE 34 U/L (10-37); BILIRUBIN,TOTAL 0.6 MG/DL (0.1-1.0); BLOOD UREA NITROGEN 14 MG/DL (7-18); BUN/CREATININE RATIO 16.7 (5.4-32.0); CALCIUM 8.8 MG/DL (8.5-10.1); CHLORIDE 106 MMOL/L (99-107); CREATININE 0.84 MG/DL (0.60-1.10); GLUCOSE 100 MG/DL (70-104); POTASSIUM 3.6 MMOL/L (3.5-5.1); SODIUM 139 MMOL/L (135-145); TOTAL CARBON DIOXIDE 26.2 MMOL/L (24-32); TOTAL PROTEIN 7.7 G/DL (6.4-8.2); eGFR > 90 ML/MIN
[2020-01-29 09:21] LABS: MAGNESIUM 1.9 MG/DL (1.5-2.4)
[2020-01-29 09:40] VITALS: BP 153/102
--- NOTE | 2020-01-29 09:45 | NUR ---
PT KEEPS LEAVING ROOM AND REQUIRES FREQUENT REMINDERS TO STAY IN ROOM. PT TELLS DR ALVARADO HE IS GOING TO GO AND DECLINES TO STAY AND HAVE LABS REDRAWN IN 3HOURS FOR EVALUATION.
== END 2020-01-29 09:50 | disposition left against medical advice (07) ==
LOC: ER 08:24
DX: R07.89 Other chest pain (principal); F41.9 Anxiety disorder, unspecified; F31.9 Bipolar disorder, unspecified; F12.90 Cannabis use, unspecified, uncomplicated; F15.90 Other stimulant use, unspecified, uncomplicated; F14.90 Cocaine use, unspecified, uncomplicated; F11.90 Opioid use, unspecified, uncomplicated; Z72.89 Other problems related to lifestyle; Z59.0 Homelessness; Z79.899 Other long term (current) drug therapy
CPT/HCPCS: 36415; 71045; 80053; 83735; 83880; 84484; 85025; 93005; 99285

== ENCOUNTER 2020-02-01 06:30 | Emergency (ER) | payer MEDICARE, MEDICAID ==
[2020-02-01 06:37] VITALS: BP 119/74
[2020-02-01] MEDS ORDERED: LORA-268 PO (06:55)
== END 2020-02-01 07:27 | disposition home or self-care (01) ==
LOC: ER 06:31
DX: F41.9 Anxiety disorder, unspecified (principal); F15.10 Other stimulant abuse, uncomplicated; F32.9 Major depressive disorder, single episode, unspecified; F12.90 Cannabis use, unspecified, uncomplicated; F15.90 Other stimulant use, unspecified, uncomplicated; F14.90 Cocaine use, unspecified, uncomplicated; F11.90 Opioid use, unspecified, uncomplicated; Z79.899 Other long term (current) drug therapy
CPT/HCPCS: 99283

== ENCOUNTER 2020-02-04 16:52 | Emergency (ER) | payer MEDICARE, MEDICAID ==
[~2020-02-04] VITALS: Ht 195.6 cm; Wt 90.9 kg
[~2020-02-04 16:52] MED LIST changes: +LORA-268 PO
--- NOTE | 2020-02-04 17:20 | NUR ---
Patient arrived to bed 22 at this time.
--- NOTE | 2020-02-04 17:56 | NUR ---
Resting in bed, eating a sandwich and drinking water, pleasant and calm. No s/sx of distress noted. Will cont. to monitor.
[2020-02-04 18:00] LABS: BASOPHILS # (AUTO) 0.1 X10'3 (0-0.2); BASOPHILS % (AUTO) 0.7 % (0-1); EOSINOPHILS # (AUTO) 0.6 X10'3 (0-0.9); EOSINOPHILS % (AUTO) 7.2 % (0-6); HEMATOCRIT 37.6 % (42.0-52.0); HEMOGLOBIN 12.5 g/dl (14.0-17.9); LYMPHOCYTES # (AUTO) 1.8 X10'3 (1.1-4.8); LYMPHOCYTES % (AUTO) 22.6 % (21-51); MEAN CORPUSCULAR HEMOGLOBIN 29.5 PG (27.0-31.0); MEAN CORPUSCULAR HGB CONC 33.3 g/dL (33.0-36.5); MEAN CORPUSCULAR VOLUME 88.5 FL (78-98); MEAN PLATELET VOLUME 6.9 FL (7.4-10.4); MONOCYTES # (AUTO) 0.5 X10'3 (0-0.9); MONOCYTES % (AUTO) 6.5 % (2-12); PLATELET COUNT 400 X10'3 (140-440); RED BLOOD COUNT 4.25 X10'6 (4.70-6.10)
[2020-02-04 18:10] LABS: CLARITY,URINE SLIGHTLY CLOUDY (Clear); COLOR,URINE YELLOW (Yellow); GLUCOSE, URINE NEGATIVE (Neg); KETONES,URINE NEGATIVE (Neg); LEUKOCYTE ESTERASE ,URINE NEGATIVE (Neg); NITRITES, URINE NEGATIVE (Neg); OCCULT BLOOD,URINE MODERATE (Neg); PH,URINE 5.5 (4.8-8.0); PROTEIN,URINE TRACE mg/dl (Neg)
[2020-02-04 18:13] LABS: UA COLLECTION TYPE CLN CATCH MIDSTREAM
[2020-02-04 18:16] LABS: MUCUS STRANDS MANY /LPF (Neg); SQUAMOUS EPITHELIAL CELL,UR FEW /LPF (FEW); TRANSITIONAL EPI CELLS,URINE FEW /HPF
[2020-02-04 18:17] LABS: HYALINE CASTS 0-3 /LPF (NEGATIVE)
[2020-02-04 18:17] LABS: ALANINE AMINOTRANSFERASE 36 U/L (12-78); ALBUMIN 3.2 G/DL (3.4-5.0); ALBUMIN/GLOBULIN RATIO 0.9 (1.1-1.5); ALKALINE PHOSPHATASE 65 IU/L (46-116); ANION GAP 6 (8-16); ASPARTATE AMINO TRANSFERASE 28 U/L (10-37); BILIRUBIN,TOTAL 0.4 MG/DL (0.1-1.0); BLOOD UREA NITROGEN 17 MG/DL (7-18); BUN/CREATININE RATIO 20.5 (5.4-32.0); CALCIUM 8.4 MG/DL (8.5-10.1); CHLORIDE 105 MMOL/L (99-107); CREATININE 0.83 MG/DL (0.60-1.10); ETHANOL < 0.010 GM/DL (0.0-0.010); GLUCOSE 101 MG/DL (70-104); POTASSIUM 3.4 MMOL/L (3.5-5.1); SODIUM 140 MMOL/L (135-145); TOTAL CARBON DIOXIDE 29.1 MMOL/L (24-32); TOTAL PROTEIN 6.7 G/DL (6.4-8.2); eGFR > 90 ML/MIN
[2020-02-04 18:18] LABS: URINE AMPHETAMINE SCREEN POSITIVE (Neg); URINE BARBITUATE SCREEN NEGATIVE (Neg); URINE BENZODIAZEPINES SCREEN NEGATIVE (Neg); URINE CANNABINOID SCREEN POSITIVE (Neg); URINE COCAINE SCREEN NEGATIVE (Neg); URINE METHADONE SCREEN NEGATIVE (Neg); URINE OPIATE SCREEN POSITIVE (Neg); URINE PHENCYCLIDINE SCREEN NEGATIVE (Neg)
[2020-02-04 18:20] LABS: BACTERIA,URINE FEW /HPF (Neg); WBC,URINE 0-4 /HPF (0-4)
[2020-02-04 18:21] LABS: CAL OXALATE CRYSTALS 2+ /HPF (NEGATIVE)
--- NOTE | 2020-02-04 20:36 | NUR ---
Per patient he took himself off all medications, too hard to get them and manange meds.
--- NOTE | 2020-02-05 06:42 | NUR ---
PT IS SLEEPING IN HIS ROOM
--- NOTE | 2020-02-05 07:00 | NUR ---
PT IS RESTING IN HIS ROOM
--- NOTE | 2020-02-05 08:04 | NUR ---
PT IS AWAKE AND AMBULATED TO THE BATHROOM
--- NOTE | 2020-02-05 09:00 | NUR ---
PT IS EATING BREAKFAST
--- NOTE | 2020-02-05 10:33 | NUR ---
BREAKING PRIMARY RN, PT IS ASLEEP ON HIS RIGHT SIDE, REGULAR BREATHING OBSERVED, NO NEEDS AT THIS TIME
--- NOTE | 2020-02-05 11:00 | NUR ---
PT IS SLEEPING
--- NOTE | 2020-02-05 12:00 | NUR ---
PT IS RESTING
--- NOTE | 2020-02-05 13:03 | NUR ---
PT IS RESTING
--- NOTE | 2020-02-05 14:00 | NUR ---
PT IS SLEEPING
--- NOTE | 2020-02-05 15:00 | NUR ---
PT IS WALKING AROUND. USING THE BATHROOM
--- NOTE | 2020-02-05 16:00 | NUR ---
PT IS RESTING
--- NOTE | 2020-02-05 17:00 | NUR ---
PT IS RESTING
--- NOTE | 2020-02-05 17:52 | NUR ---
PT IS RESTING
--- NOTE | 2020-02-05 18:56 | NUR ---
PT RESTING COMFORTABLY WITH NO SIGNS OF DISTRESS OR DISCOMFORT NOTED. WILL CONTINUE TO MONITOR.
--- NOTE | 2020-02-05 20:02 | NUR ---
PT RESTING WITH NO SIGNS OF DISTRESS OR DISCOMFORT NOTED. PT REQUESTED NICOTINE PATCH EARLIER TODAY AND NO ORDER WRITTEN FOR IT. VERBAL ORDER GIVEN BY ED MD WOODSON.
[2020-02-05] MEDS ORDERED: nicotine 21mg patch - 24 hr TD ONE (20:05)
--- NOTE | 2020-02-05 21:16 | NUR ---
PT RESTING AND NOT SHOWINGS SIGNS OF DISTRESS OR DISCOMFORT. WILL MONITOR.
--- NOTE | 2020-02-05 23:17 | NUR ---
PT APPEARS TO BE SLEEPING AND NOT IN ANY DISTRESS OR DISCOMFORT. WILL CONTINUE TO MONITOR.
--- NOTE | 2020-02-06 01:09 | NUR ---
PT APPEARS TO BE SLEEPING COMFORTABLY- NO SIGNS OF DISTRESS NOTED. WILL MONITOR.
--- NOTE | 2020-02-06 02:20 | NUR ---
PT STATING HIS "ANXIETY IS GOING UP BECAUSE HE IS THINKING HE HAS NARCOLEPSY." REQUESTING ATIVAN TO HELP WITH THIS. ALSO STATING SOME PAIN "FROM LYING ON THE GROUND, MY FEET HURT, AND PEOPLE ARE BEATING ME UP WHEN I HAVE NARCOLEPSY." SIOMARA DONALDSON UPDATED ON PT STATUS AND GAVE RN VERBAL ORDER FOR TYLENOL, MELATONIN AND BENADRYL. RN WILL CONTINUE TO MONITOR.
[2020-02-06] MEDS ORDERED: diphenhydrAMINE 25mg capsule PO ONE (02:25)
[2020-02-06] MEDS ORDERED: acetaminophen 325mg tablet PO ONE ×2 (02:25→22:35)
[2020-02-06] MEDS ORDERED: Melatonin 3mg tablet PO ONE (02:30)
[2020-02-06] MEDS ORDERED: Melatonin 3mg tablet PO SCH ×2 (02:30→21:00)
--- NOTE | 2020-02-06 02:51 | NUR ---
BREAKING PRIMARY RN. PT WALKED TO BATHROOM. LYING BACK IN BED RESTING. WILL CONTINUE TO MONITOR
--- NOTE | 2020-02-06 05:39 | NUR ---
PT CONTINUES TO SLEEP AND DOES NOT APPEAR TO BE IN ANY DISTRESS OR DISCOMFORT. WILL MONITOR.
--- NOTE | 2020-02-06 06:30 | NUR ---
PT IS RESTING
--- NOTE | 2020-02-06 07:30 | NUR ---
PT IS RESTING
--- NOTE | 2020-02-06 08:30 | NUR ---
PT IS SLEEPING
--- NOTE | 2020-02-06 09:30 | NUR ---
PT IS RESTING
--- NOTE | 2020-02-06 10:30 | NUR ---
PT IS RESTING
--- NOTE | 2020-02-06 11:30 | NUR ---
PT CALLED HIS SON
--- NOTE | 2020-02-06 12:30 | NUR ---
PT IS RESTING
--- NOTE | 2020-02-06 13:30 | NUR ---
PT IS WALKING AROUND
--- NOTE | 2020-02-06 14:30 | NUR ---
PT STATES THAT HE WANT TO GO TO REHAB UPON DISCHARGE
--- NOTE | 2020-02-06 15:30 | NUR ---
PT IS HAVING SOME SNACKS. RESTING IN HIS ROOM
--- NOTE | 2020-02-06 16:30 | NUR ---
PT IS RESTING NO ISSUES AT THIS TIME
--- NOTE | 2020-02-06 17:50 | NUR ---
PT WALKED OVER TO ROOM 13 WITH RN AND TECH
--- NOTE | 2020-02-06 22:30 | NUR ---
Pt ws in the [facility] wondering around staring at staff. Pt was asked to go back to his room. He refused. Pt asked again to go back into his room and lay down. Standing in the halls starring staff down is inappropriate. Pt started yelling to stop treating him like an animal. He is stressed out with life. He stated he wants ativan.
[2020-02-07] MEDS ORDERED: diphenhydrAMINE 25mg capsule PO ONE (03:35)
--- NOTE | 2020-02-07 06:29 | NUR ---
Monitoring pt until he is moved to overflow. Report was given to LAWANDA Poe in overflow by NOC RN. Pt resting quietly at this time.
--- NOTE | 2020-02-07 06:44 | NUR ---
Pt ambulated to overflow unassisted. LAWANDA Poe aware of pt's arrival.
--- NOTE | 2020-02-07 07:00 | NUR ---
Resting in bed
--- NOTE | 2020-02-07 08:00 | NUR ---
Resting in bed
[2020-02-07] MEDS ORDERED: LORazepam 1 MG tablet PO ONE (08:50)
--- NOTE | 2020-02-07 09:00 | NUR ---
Resting in bed
--- NOTE | 2020-02-07 09:10 | NUR ---
Breaking primary RN, pt just ambulated back from bathroom, no agitation
--- NOTE | 2020-02-07 10:00 | NUR ---
Resting in bed
--- NOTE | 2020-02-07 11:00 | NUR ---
Resting in bed
--- NOTE | 2020-02-07 11:06 | NUR ---
Breaking Primary RN, pt is supine in bed, eyes closed, regular breathing present
--- NOTE | 2020-02-07 11:37 | NUR ---
accepted at [facility] at 1120 by Kayla Tabares.
--- NOTE | 2020-02-07 12:00 | NUR ---
Resting in bed
--- NOTE | 2020-02-07 12:08 | NUR ---
PU time 1956
--- NOTE | 2020-02-07 13:00 | NUR ---
Resting in bed
--- NOTE | 2020-02-07 13:20 | NUR ---
Lunch relief for Primary Nurse. Pt is resting in a position of comfort on the bed. Sitter nearby. No distress noted.
--- NOTE | 2020-02-07 14:00 | NUR ---
Resting in bed
--- NOTE | 2020-02-07 15:00 | NUR ---
Resting in bed
--- NOTE | 2020-02-07 15:15 | NUR ---
[facility] called and [facility] cancelled the admission due to patient is out of Medicare days.
--- NOTE | 2020-02-07 16:23 | NUR ---
Breaking primary RN, pt is laying on his right side, eyes closed, regular breathing present, will continue to monitor
--- NOTE | 2020-02-07 16:45 | NUR ---
Patient sleeping on right side. No distress observed. Continue to monitor.
--- NOTE | 2020-02-07 17:42 | NUR ---
Patient sleeping of left side. No distress observed. Continue to monitor.
--- NOTE | 2020-02-07 18:08 | NUR ---
Patient sleeping supine. No distress observed. Continue to monitor.
--- NOTE | 2020-02-07 19:00 | NUR ---
Pt resting comfortably, no s/s of distress, respirations normal.
--- NOTE | 2020-02-07 19:30 | NUR ---
Pt up to restroom.
--- NOTE | 2020-02-07 19:35 | NUR ---
Pt requesting a nicotine patch and tylenol for chronic leg pain.
--- NOTE | 2020-02-07 20:00 | NUR ---
Pt resting comfortably, no s/s of distress, respirations normal.
[2020-02-07] MEDS ORDERED: acetaminophen 325mg tablet PO ONE (20:25)
[2020-02-07] MEDS ORDERED: nicotine 21mg patch - 24 hr TD ONE (20:25)
--- NOTE | 2020-02-07 21:00 | NUR ---
Pt resting comfortably, no s/s of distress, respirations normal.
--- NOTE | 2020-02-07 21:30 | NUR ---
Pt up to restroom.
--- NOTE | 2020-02-07 22:00 | NUR ---
Pt resting comfortably, no s/s of distress, respirations normal.
--- NOTE | 2020-02-07 23:33 | NUR ---
Pt resting comfortably, no s/s of distress, respirations normal.
--- NOTE | 2020-02-08 01:00 | NUR ---
Pt resting comfortably, respirations normal, no s/s of distress.
--- NOTE | 2020-02-08 02:01 | NUR ---
Pt resting comfortably, respirations normal, no s/s of distress.
--- NOTE | 2020-02-08 06:32 | NUR ---
Patient brought over to bed 23 patient now sleeping in bed
[2020-02-08] MEDS ORDERED: acetaminophen 325mg tablet PO ONE (06:40)
--- NOTE | 2020-02-08 07:10 | NUR ---
patient is sleeping
--- NOTE | 2020-02-08 08:15 | NUR ---
Patient is sleeping in bed
--- NOTE | 2020-02-08 09:02 | NUR ---
resting in bed
[2020-02-08] MEDS ORDERED: LORazepam 1 MG tablet PO ONE (10:30)
--- NOTE | 2020-02-08 10:41 | NUR ---
PT CALLED HIS SON JEN AND FATHER KEEGAN, PLEASANT CONVERSATIONS. PT ALSO REQUESTING JOSH, JOSH PHONE IS CURRENTLY OFF. WILL ATTEMPT TO REACH JOSH AGAIN SHORTLY.
--- NOTE | 2020-02-08 15:17 | NUR ---
in the restroom
[2020-02-08] MEDS ORDERED: nicotine 14mg patch - 24hr TD ONE (15:30)
--- NOTE | 2020-02-08 16:04 | NUR ---
pacing around [facility]
[2020-02-08] MEDS ORDERED: hydrOXYzine 25 MG tablet PO ONE (16:25)
--- NOTE | 2020-02-08 17:08 | NUR ---
resting in bed
--- NOTE | 2020-02-08 19:30 | NUR ---
Pt. resting in bed with eyes closed. Appears to be comfortable.
--- NOTE | 2020-02-08 20:30 | NUR ---
Pt. in bed, resting/sleeping. No s/s of discomfort. Even just rise observed.
--- NOTE | 2020-02-08 21:30 | NUR ---
Pt. uses the bathroom independently. He was given snacks at this time. No s/s of discomfort.
--- NOTE | 2020-02-08 22:30 | NUR ---
Sleeping/resting with eyes closed. Appears comfortable.
--- NOTE | 2020-02-08 23:30 | NUR ---
Pt. continues to sleep.
--- NOTE | 2020-02-09 00:30 | NUR ---
Pt. continues to sleep. Even chest rise observed. Appears to be comfortable.
--- NOTE | 2020-02-09 02:30 | NUR ---
Pt. continues to sleep.
--- NOTE | 2020-02-09 03:30 | NUR ---
Pt. continues to sleep.
--- NOTE | 2020-02-09 04:30 | NUR ---
Pt. continues to sleep. Uses bathroom independently. Appears comfortable.
[2020-02-09] MEDS ORDERED: acetaminophen 325mg tablet PO ONE ×2 (05:20→10:35)
--- NOTE | 2020-02-09 05:36 | NUR ---
VS taken at this time and WNL. Pt. reports mild/mod hip pain. Tylenol given per .
[2020-02-09] MEDS ORDERED: hydrOXYzine 25 MG tablet PO ONE (10:35)
--- NOTE | 2020-02-09 12:51 | NUR ---
pt is resting, spoke with [facility] office, pt is out of medicare days they are talking with [facility], and [facility] about placement but if neither place takes pt he is up for re-eval 02/09
--- NOTE | 2020-02-09 13:00 | NUR ---
resting in bed
--- NOTE | 2020-02-09 13:18 | NUR ---
PT IS UP PACING SAYING HE HAD A BAD DREAM AND NOW GOD DOESNT LOVE HIM OR HE WOULDNT KEEP PUTTING HIM THROUGH THIS. INSTRUCTED PT TO THINK HAPPY THOUGHTS.
--- NOTE | 2020-02-09 13:25 | NUR ---
[facility] WORK[facility] HERE TO TALK WITH PT.
--- NOTE | 2020-02-09 13:34 | NUR ---
BACK IN BED AND QUIET AT THIS TIME.
--- NOTE | 2020-02-09 13:44 | NUR ---
GAVE PT SNACKS
--- NOTE | 2020-02-09 14:00 | NUR ---
resting in bed
[2020-02-09] MEDS ORDERED: LORazepam 1 MG tablet PO ONE (14:25)
--- NOTE | 2020-02-09 15:00 | NUR ---
resting in bed
--- NOTE | 2020-02-09 16:00 | NUR ---
resting in bed
--- NOTE | 2020-02-09 17:00 | NUR ---
resting in bed
--- NOTE | 2020-02-09 18:00 | NUR ---
resting in bed
--- NOTE | 2020-02-09 19:12 | NUR ---
Pt requesting something to help him sleep as he is having demonic thoughts and bad dreams.
--- NOTE | 2020-02-09 19:33 | NUR ---
Med ordered to help with sleep. Snacks given to help with absorption.
[2020-02-09] MEDS ORDERED: traZODone 50mg tablet PO SCH (19:35)
--- NOTE | 2020-02-09 20:41 | NUR ---
Pt resting quietly, respirations normal, no s/s of distress.
--- NOTE | 2020-02-09 22:00 | NUR ---
Pt resting quietly, respirations normal, no s/s of distress.
--- NOTE | 2020-02-09 22:56 | NUR ---
Pt resting quietly, respirations normal, no s/s of distress.
--- NOTE | 2020-02-09 23:48 | NUR ---
Pt resting quietly, respirations normal, no s/s of distress.
--- NOTE | 2020-02-10 01:24 | NUR ---
Pt resting quietly, respirations normal, no s/s of distress.
--- NOTE | 2020-02-10 02:59 | NUR ---
Pt resting quietly, respirations normal, no s/s of distress.
--- NOTE | 2020-02-10 05:20 | NUR ---
Pt resting quietly, respirations normal, no s/s of distress.
[2020-02-10 05:56] VITALS: BP 98/59
--- NOTE | 2020-02-10 07:01 | NUR ---
Pt awake and up to bathroom
--- NOTE | 2020-02-10 07:45 | NUR ---
Patient pacing the floor, pressured speech; states he is anxious and needs ativan. Very restless and may escalate. Given opportunity to talk; requested ativan from
[2020-02-10] MEDS ORDERED: LORazepam 1 MG tablet PO ONE (08:25)
--- NOTE | 2020-02-10 09:45 | NUR ---
breaking primary RN, pt is to be discharged soon, pacing back and forth, calm
== END 2020-02-10 11:59 ==
LOC: ER 16:52
DX: F32.9 Major depressive disorder, single episode, unspecified (principal); F41.9 Anxiety disorder, unspecified; F12.90 Cannabis use, unspecified, uncomplicated; F15.90 Other stimulant use, unspecified, uncomplicated; F11.90 Opioid use, unspecified, uncomplicated; F14.90 Cocaine use, unspecified, uncomplicated; Z59.0 Homelessness; Z79.899 Other long term (current) drug therapy
CPT/HCPCS: 36415; 80053; 80305; 80320; 81001; 85025; 99285

== ENCOUNTER 2020-02-14 20:42 | Emergency (ER) | payer MEDICARE, MEDICAID ==
[~2020-02-14] VITALS: Ht 198.1 cm; Wt 77.3 kg
[~2020-02-14 20:42] MED LIST changes: -BENZ1TAB7 PO; -CYCL-1 PO; -HYDR-3686 PO; -LITH150C8 PO; -RISP1TAB3 PO; -RISP2TAB3 PO; -TRAZ-251 PO; -VILA1TAB2 PO
[2020-02-14] MEDS ORDERED: normal saline 1000ML IV soln IVB ONE ×2 (22:10→23:00)
[2020-02-14 22:19] LABS: CLARITY,URINE CLEAR (Clear); COLOR,URINE YELLOW (Yellow); GLUCOSE, URINE NEGATIVE (Neg); KETONES,URINE NEGATIVE (Neg); LEUKOCYTE ESTERASE ,URINE NEGATIVE (Neg); NITRITES, URINE NEGATIVE (Neg); OCCULT BLOOD,URINE TRACE-INTACT (Neg); PH,URINE 6.5 (4.8-8.0); PROTEIN,URINE TRACE mg/dl (Neg)
[2020-02-14 22:25] LABS: UA COLLECTION TYPE CLN CATCH MIDSTREAM
[2020-02-14 22:26] LABS: BACTERIA,URINE FEW /HPF (Neg); MUCUS STRANDS FEW /LPF (Neg); RBC,URINE 0-2 /HPF (0-2); SQUAMOUS EPITHELIAL CELL,UR FEW /LPF (FEW); WBC,URINE 0-4 /HPF (0-4)
[2020-02-14 22:30] LABS: BASOPHILS % (AUTO) 0.3 % (0-1); EOSINOPHILS # (AUTO) 0.2 X10'3 (0-0.9); EOSINOPHILS % (AUTO) 1.8 % (0-6); HEMATOCRIT 35.6 % (42.0-52.0); HEMOGLOBIN 11.9 g/dl (14.0-17.9); LYMPHOCYTES # (AUTO) 1.5 X10'3 (1.1-4.8); LYMPHOCYTES % (AUTO) 11.5 % (21-51); MEAN CORPUSCULAR HGB CONC 33.6 g/dL (33.0-36.5); MEAN CORPUSCULAR VOLUME 89.4 FL (78-98); MEAN PLATELET VOLUME 6.8 FL (7.4-10.4); MONOCYTES # (AUTO) 1.5 X10'3 (0-0.9); MONOCYTES % (AUTO) 11.6 % (2-12); NEUTROPHILS % (AUTO) 74.8 % (42-75); PLATELET COUNT 505 X10'3 (140-440); RED BLOOD COUNT 3.98 X10'6 (4.70-6.10); RED CELL DISTRIBUTION WIDTH 13.3 % (11.5-14.5); WHITE BLOOD COUNT 13.3 X10'3 (4.5-11.0)
[2020-02-14 22:41] LABS: ALANINE AMINOTRANSFERASE 24 U/L (12-78); ALBUMIN 2.7 G/DL (3.4-5.0); ALBUMIN/GLOBULIN RATIO 0.6 (1.1-1.5); ALKALINE PHOSPHATASE 65 IU/L (46-116); ANION GAP 5 (8-16); ASPARTATE AMINO TRANSFERASE 13 U/L (10-37); BILIRUBIN,TOTAL 0.6 MG/DL (0.1-1.0); BLOOD UREA NITROGEN 11 MG/DL (7-18); BUN/CREATININE RATIO 14.7 (5.4-32.0); CALCIUM 8.6 MG/DL (8.5-10.1); CHLORIDE 98 MMOL/L (99-107); CREATININE 0.75 MG/DL (0.60-1.10); GLUCOSE 115 MG/DL (70-104); LIPASE 154 U/L (73-393); POTASSIUM 3.9 MMOL/L (3.5-5.1); SODIUM 132 MMOL/L (135-145); TOTAL PROTEIN 6.9 G/DL (6.4-8.2); eGFR > 90 ML/MIN
[2020-02-14] MEDS ORDERED: ketorolac trometh. 30mg/ml inj. IV ONE (23:00)
--- NOTE | 2020-02-14 23:38 | NUR ---
BREAKING PRIMARY RN; WILL CONTINUE TO MONITOR.
[2020-02-15 00:34] VITALS: BP 123/80
== END 2020-02-15 00:36 | disposition home or self-care (01) ==
LOC: ER 20:42
DX: R46.0 Very low level of personal hygiene (principal); M79.605 Pain in left leg; M79.604 Pain in right leg; M54.9 Dorsalgia, unspecified; F41.9 Anxiety disorder, unspecified; F31.9 Bipolar disorder, unspecified; F12.90 Cannabis use, unspecified, uncomplicated; F15.90 Other stimulant use, unspecified, uncomplicated; F11.90 Opioid use, unspecified, uncomplicated; F14.90 Cocaine use, unspecified, uncomplicated; Z72.89 Other problems related to lifestyle; Z59.0 Homelessness
CPT/HCPCS: 36415; 80053; 81001; 83605; 83690; 85025; 96361; 96374; 99284; J1885; J7030

== ENCOUNTER 2020-09-06 14:38 | Emergency (ER) | payer MEDICARE, MEDICAID ==
[~2020-09-06] VITALS: Ht 195.6 cm; Wt 90.2 kg
[2020-09-06 15:42] LABS: BASOPHILS # (AUTO) 0.1 X10'3 (0-0.2); BASOPHILS % (AUTO) 0.6 % (0-1); EOSINOPHILS # (AUTO) 0.1 X10'3 (0-0.9); EOSINOPHILS % (AUTO) 1.2 % (0-6); HEMATOCRIT 36.9 % (42.0-52.0); HEMOGLOBIN 12.1 g/dl (14.0-17.9); LYMPHOCYTES # (AUTO) 1.5 X10'3 (1.1-4.8); MEAN CORPUSCULAR HEMOGLOBIN 27.9 PG (27.0-31.0); MEAN CORPUSCULAR HGB CONC 32.7 g/dL (33.0-36.5); MEAN CORPUSCULAR VOLUME 85.3 FL (78-98); MONOCYTES # (AUTO) 0.9 X10'3 (0-0.9); MONOCYTES % (AUTO) 7.6 % (2-12); NEUTROPHILS # (AUTO) 9.2 X10'3 (1.8-7.7); NEUTROPHILS % (AUTO) 77.6 % (42-75); PLATELET COUNT 354 X10'3 (140-440); RED BLOOD COUNT 4.32 X10'6 (4.70-6.10); RED CELL DISTRIBUTION WIDTH 15.5 % (11.5-14.5); WHITE BLOOD COUNT 11.8 X10'3 (4.5-11.0)
[2020-09-06 15:56] LABS: ALANINE AMINOTRANSFERASE 41 U/L (12-78); ALBUMIN/GLOBULIN RATIO 1.3 (1.1-1.5); ALKALINE PHOSPHATASE 79 IU/L (46-116); ANION GAP 13 (8-16); ASPARTATE AMINO TRANSFERASE 57 U/L (10-37); BILIRUBIN,TOTAL 0.9 MG/DL (0.1-1.0); BLOOD UREA NITROGEN 24 MG/DL (7-18); BUN/CREATININE RATIO 25.8 (5.4-32.0); CALCIUM 9.1 MG/DL (8.5-10.1); CHLORIDE 102 MMOL/L (99-107); CREATININE 0.93 MG/DL (0.60-1.10); GLUCOSE 89 MG/DL (70-104); POTASSIUM 3.5 MMOL/L (3.5-5.1); SODIUM 140 MMOL/L (135-145); TOTAL CARBON DIOXIDE 25.3 MMOL/L (24-32); TOTAL PROTEIN 7.1 G/DL (6.4-8.2); eGFR 86 ML/MIN
[2020-09-06 17:37] VITALS: BP 139/90
== END 2020-09-06 17:38 | disposition home or self-care (01) ==
LOC: ER 14:40
DX: F15.10 Other stimulant abuse, uncomplicated (principal); F41.9 Anxiety disorder, unspecified; F31.9 Bipolar disorder, unspecified; F12.90 Cannabis use, unspecified, uncomplicated; Z59.0 Homelessness; Z72.89 Other problems related to lifestyle; Z79.899 Other long term (current) drug therapy
CPT/HCPCS: 36415; 71045; 80053; 83880; 84484; 85025; 93005; 99285

== ENCOUNTER 2020-09-10 00:52 | Emergency (ER) | payer MEDICARE, MEDICAID ==
[~2020-09-10] VITALS: Ht 195.6 cm; Wt 91.8 kg
[2020-09-10 00:58] VITALS: BP 142/97
== END 2020-09-10 01:10 | disposition home or self-care (01) ==
LOC: ER 00:52
DX: M79.671 Pain in right foot (principal); M79.672 Pain in left foot; F11.90 Opioid use, unspecified, uncomplicated; F12.90 Cannabis use, unspecified, uncomplicated; F15.90 Other stimulant use, unspecified, uncomplicated; F14.90 Cocaine use, unspecified, uncomplicated; F31.9 Bipolar disorder, unspecified; F41.9 Anxiety disorder, unspecified; F29 Unspecified psychosis not due to a substance or known physiological condition; Z59.0 Homelessness; Z72.89 Other problems related to lifestyle; Z79.899 Other long term (current) drug therapy
CPT/HCPCS: 99281

== ENCOUNTER 2020-09-10 19:02 | Emergency (ER) | payer MEDICARE, MEDICAID ==
[~2020-09-10] VITALS: Ht 195.6 cm; Wt 90.9 kg
[2020-09-10 19:04] VITALS: BP 111/82
[2020-09-10] MEDS ORDERED: LORazepam 1 MG tablet PO ONE (19:30)
== END 2020-09-10 19:45 | disposition home or self-care (01) ==
LOC: ER 19:03
DX: R45.1 Restlessness and agitation (principal); F41.9 Anxiety disorder, unspecified; F31.9 Bipolar disorder, unspecified; F20.9 Schizophrenia, unspecified; F12.90 Cannabis use, unspecified, uncomplicated; F15.90 Other stimulant use, unspecified, uncomplicated; F11.90 Opioid use, unspecified, uncomplicated; F14.90 Cocaine use, unspecified, uncomplicated; Z59.0 Homelessness; Z79.899 Other long term (current) drug therapy
CPT/HCPCS: 99284

== ENCOUNTER 2020-09-23 23:08 | Emergency (ER) | payer MEDICARE, MEDICAID ==
[~2020-09-23] VITALS: Ht 195.6 cm; Wt 90.9 kg
[2020-09-23 23:12] VITALS: BP 127/79
== END 2020-09-24 00:05 | disposition home or self-care (01) ==
LOC: ER 23:09
DX: R00.2 Palpitations (principal); F41.9 Anxiety disorder, unspecified; F31.9 Bipolar disorder, unspecified; F17.210 Nicotine dependence, cigarettes, uncomplicated; F12.90 Cannabis use, unspecified, uncomplicated; F15.90 Other stimulant use, unspecified, uncomplicated; F14.90 Cocaine use, unspecified, uncomplicated; F19.90 Other psychoactive substance use, unspecified, uncomplicated; Z72.89 Other problems related to lifestyle; Z59.0 Homelessness; Z79.899 Other long term (current) drug therapy
CPT/HCPCS: 93005; 99283

== ENCOUNTER 2020-09-28 05:16 | Emergency (ER) | payer MEDICARE, MEDICAID ==
[~2020-09-28] VITALS: Ht 195.6 cm; Wt 90.9 kg
[2020-09-28 05:17] VITALS: BP 151/105
== END 2020-09-28 05:42 | disposition home or self-care (01) ==
LOC: ER 05:16
DX: F15.90 Other stimulant use, unspecified, uncomplicated (principal); F17.210 Nicotine dependence, cigarettes, uncomplicated; F41.9 Anxiety disorder, unspecified; F31.9 Bipolar disorder, unspecified; F12.90 Cannabis use, unspecified, uncomplicated; F14.90 Cocaine use, unspecified, uncomplicated; F11.90 Opioid use, unspecified, uncomplicated; Z59.0 Homelessness
CPT/HCPCS: 99283

== ENCOUNTER 2020-10-12 19:37 | Emergency (ER) | payer MEDICARE, MEDICAID ==
[~2020-10-12] VITALS: Ht 195.6 cm; Wt 85.2 kg
[2020-10-12 22:21] LABS: BASOPHILS # (AUTO) 0.1 X10'3 (0-0.2); BASOPHILS % (AUTO) 0.9 % (0-1); EOSINOPHILS # (AUTO) 0.3 X10'3 (0-0.9); EOSINOPHILS % (AUTO) 2.9 % (0-6); HEMATOCRIT 39.5 % (42.0-52.0); HEMOGLOBIN 12.7 g/dl (14.0-17.9); LYMPHOCYTES # (AUTO) 1.7 X10'3 (1.1-4.8); MEAN CORPUSCULAR HEMOGLOBIN 27.4 PG (27.0-31.0); MEAN CORPUSCULAR HGB CONC 32.2 g/dL (33.0-36.5); MEAN CORPUSCULAR VOLUME 85.3 FL (78-98); MEAN PLATELET VOLUME 6.9 FL (7.4-10.4); MONOCYTES # (AUTO) 0.8 X10'3 (0-0.9); MONOCYTES % (AUTO) 7.1 % (2-12); NEUTROPHILS # (AUTO) 8.9 X10'3 (1.8-7.7); NEUTROPHILS % (AUTO) 75.1 % (42-75); PLATELET COUNT 449 X10'3 (140-440); RED BLOOD COUNT 4.63 X10'6 (4.70-6.10); RED CELL DISTRIBUTION WIDTH 16.1 % (11.5-14.5); WHITE BLOOD COUNT 11.8 X10'3 (4.5-11.0)
[2020-10-12 22:36] LABS: ALANINE AMINOTRANSFERASE 33 U/L (12-78); ALBUMIN 2.9 G/DL (3.4-5.0); ALBUMIN/GLOBULIN RATIO 0.8 (1.1-1.5); ALKALINE PHOSPHATASE 73 IU/L (46-116); ANION GAP 6 (8-16); ASPARTATE AMINO TRANSFERASE 18 U/L (10-37); BILIRUBIN,TOTAL 0.2 MG/DL (0.1-1.0); BLOOD UREA NITROGEN 21 MG/DL (7-18); BUN/CREATININE RATIO 20.8 (5.4-32.0); CALCIUM 8.5 MG/DL (8.5-10.1); CHLORIDE 105 MMOL/L (99-107); CREATININE 1.01 MG/DL (0.60-1.10); ETHANOL < 0.010 GM/DL (0.0-0.010); GLUCOSE 94 MG/DL (70-104); POTASSIUM 3.7 MMOL/L (3.5-5.1); SODIUM 143 MMOL/L (135-145); TOTAL CARBON DIOXIDE 32.4 MMOL/L (24-32); TOTAL PROTEIN 6.7 G/DL (6.4-8.2); eGFR 78 ML/MIN
[2020-10-13 03:29] LABS: URINE AMPHETAMINE SCREEN NEGATIVE (Neg); URINE BARBITUATE SCREEN NEGATIVE (Neg); URINE BENZODIAZEPINES SCREEN NEGATIVE (Neg); URINE CANNABINOID SCREEN NEGATIVE (Neg); URINE COCAINE SCREEN NEGATIVE (Neg); URINE METHADONE SCREEN NEGATIVE (Neg); URINE OPIATE SCREEN NEGATIVE (Neg); URINE PHENCYCLIDINE SCREEN NEGATIVE (Neg)
[2020-10-13 03:38] LABS: CLARITY,URINE CLEAR (Clear); COLOR,URINE YELLOW (Yellow); GLUCOSE, URINE NEGATIVE (Neg); KETONES,URINE NEGATIVE (Neg); LEUKOCYTE ESTERASE ,URINE NEGATIVE (Neg); NITRITES, URINE NEGATIVE (Neg); OCCULT BLOOD,URINE NEGATIVE (Neg); PROTEIN,URINE NEGATIVE (Neg); UROBILINOGEN,URINE 0.2 E.U/dL (0.2-1.0)
[2020-10-13 03:39] LABS: UA COLLECTION TYPE VOIDED
--- NOTE | 2020-10-13 05:04 | NUR ---
packet was faxed to [facility].
--- NOTE | 2020-10-13 06:50 | NUR ---
Pt resting with eyes closed, effortless respirations observed.
--- NOTE | 2020-10-13 07:40 | NUR ---
Pt ambulated to restroom and now laying back on gurney.
--- NOTE | 2020-10-13 08:15 | NUR ---
RN received SBAR report on pt. and pt. transfered from main ER to ER overflow. Pt. lying in bed.
--- NOTE | 2020-10-13 09:30 | NUR ---
1:1 done at bedside. Pt. reports SI without a plan. Pt reports hearchavo HERRERA and states, "the most horrible things you've heard". Pt. is anxious stating, "You guys can't just discharge... I need help... Please help me". Pt. reports previous SA taking a bottle of pills but does not remember when. Pt. is A&Ox4. Pt. requesting clothes and given sweatshirt and sweat pants.
--- NOTE | 2020-10-13 11:42 | NUR ---
DISCHARGE NOTE: RN received discharge paper work. RN went over d/c paperwork with pt., pt. became upset, yelling "Where am is supposed to go?! Where am I supposed to go?!" Pt. reports SI without plan, but states, "I'll do it anyway I can!" Pt. refused to sign D/C paperwork. Pt. verbalized understanding of calling 911 or coming to ER for emergency numbers. Pt. does not have shoes. The hospital's clothes closet did not have his size. Pt. encouraged to go to [facility] and request shoes. Pt. given sweatpants and sweatshirt from hospital clothes closet. Pt. escorted out of ER by security. Addendum: 10/13/20 at 1149 by JAVIER Pt. given sack lunch and encouraged to go to [place] for food and correction.
[2020-10-13 11:50] VITALS: BP 108/63
== END 2020-10-13 11:57 ==
LOC: ER 19:37
DX: R45.851 Suicidal ideations (principal); R44.3 Hallucinations, unspecified; F15.10 Other stimulant abuse, uncomplicated; F41.9 Anxiety disorder, unspecified; F31.9 Bipolar disorder, unspecified; F12.90 Cannabis use, unspecified, uncomplicated; F14.90 Cocaine use, unspecified, uncomplicated; F11.90 Opioid use, unspecified, uncomplicated; Z72.89 Other problems related to lifestyle; Z59.0 Homelessness
CPT/HCPCS: 36415; 80053; 80305; 80320; 81003; 85025; 99285

== ENCOUNTER 2020-10-19 01:31 | Emergency (ER) | payer MEDICARE, MEDICAID ==
[~2020-10-19] VITALS: Ht 195.6 cm; Wt 85.9 kg
[2020-10-19 01:37] VITALS: BP 124/83
== END 2020-10-19 02:45 | disposition left against medical advice (07) ==
LOC: ER 01:32
DX: M79.673 Pain in unspecified foot (principal); F41.9 Anxiety disorder, unspecified; F31.9 Bipolar disorder, unspecified; F12.90 Cannabis use, unspecified, uncomplicated; F15.90 Other stimulant use, unspecified, uncomplicated; F14.90 Cocaine use, unspecified, uncomplicated; F11.90 Opioid use, unspecified, uncomplicated; Z59.0 Homelessness; Z72.89 Other problems related to lifestyle; Z79.899 Other long term (current) drug therapy; Z53.21 Procedure and treatment not carried out due to patient leaving prior to being seen by health care provider

== ENCOUNTER 2020-11-05 01:42 | Emergency (ER) | payer MEDICARE, MEDICAID | END 2020-11-06 07:24 | disposition left against medical advice (07) | LOC: ER 01:43 | DX: F41.0 Panic disorder [episodic paroxysmal anxiety] (principal); Z53.21 Procedure and treatment not carried out due to patient leaving prior to being seen by health care provider ==

== ENCOUNTER 2020-12-10 16:43 | Emergency (ER) | payer MEDICARE, MEDICAID ==
[~2020-12-10] VITALS: Ht 190.5 cm; Wt 84.1 kg
[2020-12-10 17:40] VITALS: BP 134/89
[2020-12-10 19:02] LABS: BASOPHILS # (AUTO) 0.1 X10'3 (0-0.2); EOSINOPHILS # (AUTO) 0.1 X10'3 (0-0.9); MEAN PLATELET VOLUME 6.6 FL (7.4-10.4); MONOCYTES # (AUTO) 1.1 X10'3 (0-0.9)
[2020-12-10 19:03] LABS: BASOPHILS % (AUTO) 0.6 % (0-1); EOSINOPHILS % (AUTO) 0.4 % (0-6); HEMATOCRIT 38.1 % (42.0-52.0); HEMOGLOBIN 12.7 g/dl (14.0-17.9); LYMPHOCYTES # (AUTO) 1.6 X10'3 (1.1-4.8); LYMPHOCYTES % (AUTO) 9.9 % (21-51); MEAN CORPUSCULAR HGB CONC 33.2 g/dL (33.0-36.5); MEAN CORPUSCULAR VOLUME 84.2 FL (78-98); MONOCYTES % (AUTO) 6.5 % (2-12); NEUTROPHILS # (AUTO) 13.6 X10'3 (1.8-7.7); NEUTROPHILS % (AUTO) 82.6 % (42-75); PLATELET COUNT 785 X10'3 (140-440); RED BLOOD COUNT 4.53 X10'6 (4.70-6.10); RED CELL DISTRIBUTION WIDTH 16.9 % (11.5-14.5); WHITE BLOOD COUNT 16.5 X10'3 (4.5-11.0)
[2020-12-10 19:13] LABS: ALANINE AMINOTRANSFERASE 28 U/L (12-78); ALBUMIN/GLOBULIN RATIO 0.9 (1.1-1.5); ALKALINE PHOSPHATASE 81 IU/L (46-116); ANION GAP 10 (8-16); ASPARTATE AMINO TRANSFERASE 36 U/L (10-37); BILIRUBIN,TOTAL 1.5 MG/DL (0.1-1.0); BLOOD UREA NITROGEN 30 MG/DL (7-18); BUN/CREATININE RATIO 25.4 (5.4-32.0); CALCIUM 9.2 MG/DL (8.5-10.1); CHLORIDE 98 MMOL/L (99-107); CREATININE 1.18 MG/DL (0.60-1.10); GLUCOSE 114 MG/DL (70-104); POTASSIUM 4.1 MMOL/L (3.5-5.1); SODIUM 136 MMOL/L (135-145); TOTAL CARBON DIOXIDE 28.5 MMOL/L (24-32); TOTAL PROTEIN 8.6 G/DL (6.4-8.2); eGFR 65 ML/MIN
[2020-12-10 19:22] LABS: ETHANOL < 0.010 GM/DL (0.0-0.010)
[2020-12-10 21:02] LABS: ANISOCYTOSIS 1+; LARGE PLATELETS FEW; PLATELET ESTIMATE INCREASED
== END 2020-12-10 19:22 | disposition home or self-care (01) ==
LOC: ER 16:44
DX: F15.10 Other stimulant abuse, uncomplicated (principal); F41.9 Anxiety disorder, unspecified; F31.9 Bipolar disorder, unspecified; F12.90 Cannabis use, unspecified, uncomplicated; F14.90 Cocaine use, unspecified, uncomplicated; F11.90 Opioid use, unspecified, uncomplicated; Z72.89 Other problems related to lifestyle; Z59.0 Homelessness
CPT/HCPCS: 36415; 80053; 80320; 84443; 85008; 85025; 99283

== ENCOUNTER 2020-12-21 21:44 | Emergency (ER) | payer MEDICARE, MEDICAID ==
[~2020-12-21] VITALS: Ht 195.6 cm; Wt 83.0 kg
[2020-12-21 21:51] VITALS: BP 121/82
--- NOTE | 2020-12-21 22:56 | NUR ---
pt to room, assumed care
--- NOTE | 2020-12-21 23:37 | NUR ---
PT LEAVES WITHOUT SIGNING D/C PAPERWORK
== END 2020-12-21 23:39 | disposition home or self-care (01) ==
LOC: ER 21:45
DX: H57.89 Other specified disorders of eye and adnexa (principal); Z00.00 Encounter for general adult medical examination without abnormal findings; F12.90 Cannabis use, unspecified, uncomplicated; F15.90 Other stimulant use, unspecified, uncomplicated; F11.90 Opioid use, unspecified, uncomplicated; Z59.0 Homelessness; Z72.89 Other problems related to lifestyle
CPT/HCPCS: 99281

== ENCOUNTER 2020-12-26 03:15 | Emergency (ER) | payer MEDICARE, MEDICAID | END 2020-12-26 04:13 | disposition left against medical advice (07) | LOC: ER 03:15 | DX: Z53.21 Procedure and treatment not carried out due to patient leaving prior to being seen by health care provider (principal) ==

== ENCOUNTER 2021-09-05 01:23 | Emergency (ER) | payer MEDICARE, MEDICAID ==
[~2021-09-05] VITALS: Ht 195.6 cm; Wt 100.0 kg
[2021-09-05 06:25] VITALS: BP 113/91
== END 2021-09-05 06:49 | disposition home or self-care (01) ==
LOC: ER 01:25
DX: F15.90 Other stimulant use, unspecified, uncomplicated (principal); H53.8 Other visual disturbances; F41.9 Anxiety disorder, unspecified; F31.9 Bipolar disorder, unspecified; F12.90 Cannabis use, unspecified, uncomplicated; F14.90 Cocaine use, unspecified, uncomplicated; F11.90 Opioid use, unspecified, uncomplicated; Z72.89 Other problems related to lifestyle; Z59.00 Homelessness unspecified
CPT/HCPCS: 99281

== ENCOUNTER 2021-09-09 22:24 | Emergency (ER) | payer MEDICARE, MEDICAID ==
[~2021-09-09] VITALS: Ht 195.6 cm; Wt 101.7 kg
[2021-09-09 23:06] VITALS: BP 137/79
--- NOTE | 2021-09-09 23:35 | NUR ---
PT NOT IN LOBBY
[2021-09-10] MEDS ORDERED: SULF1TAB49 PO (08:03)
[2021-09-11] MEDS ORDERED: DOXY100C97 PO (09:32)
== END 2021-09-10 00:57 | disposition left against medical advice (07) ==
LOC: ER 22:26
DX: L53.9 Erythematous condition, unspecified (principal); Z53.21 Procedure and treatment not carried out due to patient leaving prior to being seen by health care provider

== ENCOUNTER 2021-09-10 06:49 | Emergency (ER) | payer MEDICARE, MEDICAID ==
[~2021-09-10] VITALS: Ht 195.6 cm; Wt 97.7 kg
[2021-09-10 06:55] VITALS: BP 129/89
--- NOTE | 2021-09-10 07:07 | NUR ---
abscess noted on right shoulder. no drainage noted.
[2021-09-10] MEDS ORDERED: TETanus/Pertussis (Acell)/Diphther VAC/PF (Tdap-Adult) 0.5ml syringe IMVAC ONE (07:10)
[2021-09-10] MEDS ORDERED: LIDOcaine 1% W/epiNEPHrine 1:200,000 10ml vial IJ ONE (07:10)
[2021-09-10] MEDS ORDERED: LIDOcaine 1% w/EPI 1:100,000 30ml vial (MDV) IJ ONE (07:20)
[2021-09-10] MEDS ORDERED: BUPIVAcaine 0.5% W/EPI /PF 10ml vial IJ ONE (07:30)
[2021-09-10] MEDS ORDERED: sulfamethoxazole/trimethoprim DS (800/160mg) tablet PO ONE (07:55)
[2021-09-10] MEDS ORDERED: SULF1TAB49 PO (08:03)
[2021-09-11] MEDS ORDERED: DOXY100C97 PO (09:32)
== END 2021-09-10 08:12 | disposition home or self-care (01) ==
LOC: ER 06:49
DX: L03.113 Cellulitis of right upper limb (principal); F41.9 Anxiety disorder, unspecified; F32.9 Major depressive disorder, single episode, unspecified; F12.10 Cannabis abuse, uncomplicated; F15.10 Other stimulant abuse, uncomplicated; F11.10 Opioid abuse, uncomplicated; Z59.00 Homelessness unspecified
CPT/HCPCS: 10060; 12002; 90471; 90715; 99283

== ENCOUNTER 2021-09-11 09:26 | Emergency (ER) | payer MEDICARE, MEDICAID ==
[~2021-09-11] VITALS: Ht 195.6 cm; Wt 97.0 kg
[~2021-09-11 09:26] MED LIST changes: -LORA-268 PO; +SULF1TAB49 PO
[2021-09-11 09:28] VITALS: BP 144/81
[2021-09-11] MEDS ORDERED: DOXYCYCLINE 100MG CAPSULE PO STA (09:32)
[2021-09-11] MEDS ORDERED: DOXY100C97 PO (09:32)
== END 2021-09-11 10:14 | disposition home or self-care (01) ==
LOC: ER 09:27
DX: T63.391D Toxic effect of venom of other spider, accidental (unintentional), subsequent encounter (principal); F31.9 Bipolar disorder, unspecified; F12.10 Cannabis abuse, uncomplicated; F15.10 Other stimulant abuse, uncomplicated; F11.11 Opioid abuse, in remission; T63.301D Toxic effect of unspecified spider venom, accidental (unintentional), subsequent encounter
CPT/HCPCS: 99283

== ENCOUNTER 2021-09-17 15:01 | Emergency (ER) | payer MEDICARE, MEDICAID ==
[~2021-09-17] VITALS: Ht 195.6 cm; Wt 100.0 kg
[~2021-09-17 15:01] MED LIST changes: +DOXY100C97 PO
[2021-09-17 15:04] VITALS: BP 149/89
== END 2021-09-17 15:20 | disposition home or self-care (01) ==
LOC: ER 15:02
DX: Z13.89 Encounter for screening for other disorder (principal); F15.10 Other stimulant abuse, uncomplicated; F41.9 Anxiety disorder, unspecified; F31.9 Bipolar disorder, unspecified; F12.90 Cannabis use, unspecified, uncomplicated; F11.90 Opioid use, unspecified, uncomplicated; Z72.89 Other problems related to lifestyle; Z59.00 Homelessness unspecified; Z79.2 Long term (current) use of antibiotics
CPT/HCPCS: 99281

== ENCOUNTER 2021-09-28 04:07 | Emergency (ER) | payer MEDICARE, MEDICAID ==
[~2021-09-28 04:07] MED LIST changes: -DOXY100C97 PO
--- NOTE | 2021-09-28 04:12 | NUR ---
PT NOT IN LOBBY FOR TRIAGE, SEEN WALKING OFF OF PROPERTY ON [address]
--- NOTE | 2021-09-28 04:30 | NUR ---
NOT IN LOBBY
== END 2021-09-28 05:15 | disposition left against medical advice (07) ==
LOC: ER 04:08
DX: M54.2 Cervicalgia (principal); Z53.21 Procedure and treatment not carried out due to patient leaving prior to being seen by health care provider

== ENCOUNTER 2021-10-05 05:36 | Emergency (ER) | payer MEDICARE, MEDICAID ==
[~2021-10-05] VITALS: Ht 195.6 cm; Wt 100.0 kg
[2021-10-05 05:47] VITALS: BP 152/93
== END 2021-10-05 09:15 | disposition left against medical advice (07) ==
LOC: ER 05:37
DX: R07.89 Other chest pain (principal); Z53.21 Procedure and treatment not carried out due to patient leaving prior to being seen by health care provider
CPT/HCPCS: 71045; 93005

== ENCOUNTER 2021-11-07 03:41 | Emergency (ER) | payer MEDICARE, MEDICAID ==
[~2021-11-07] VITALS: Ht 195.6 cm; Wt 101.5 kg
[2021-11-07 03:49] VITALS: BP 125/85
[2021-11-07] MEDS ORDERED: SULF1TAB49 PO (05:13)
[2021-11-07] MEDS ORDERED: sulfamethoxazole/trimethoprim DS (800/160mg) tablet PO ONE (05:15)
[2021-11-07] MEDS ORDERED: ondansetron 4mg rapidly disintigrating tab PO ONE (05:15)
== END 2021-11-07 05:58 | disposition home or self-care (01) ==
LOC: ER 03:41
DX: L03.115 Cellulitis of right lower limb (principal); M25.571 Pain in right ankle and joints of right foot; F41.9 Anxiety disorder, unspecified; F31.9 Bipolar disorder, unspecified; F12.90 Cannabis use, unspecified, uncomplicated; F15.90 Other stimulant use, unspecified, uncomplicated; F14.90 Cocaine use, unspecified, uncomplicated; F11.90 Opioid use, unspecified, uncomplicated; Z72.89 Other problems related to lifestyle; Z59.00 Homelessness unspecified; Z79.2 Long term (current) use of antibiotics
CPT/HCPCS: 99283

== ENCOUNTER 2021-11-11 20:22 | Emergency (ER) | payer MEDICARE, MEDICAID | END 2021-11-11 20:57 | disposition left against medical advice (07) | LOC: ER 20:23 | DX: F41.9 Anxiety disorder, unspecified (principal); Z53.21 Procedure and treatment not carried out due to patient leaving prior to being seen by health care provider ==

== ENCOUNTER 2021-12-19 20:12 | Emergency (ER) | payer MEDICARE, MEDICAID | END 2021-12-19 21:31 | disposition left against medical advice (07) | LOC: ER 20:12 | DX: R53.1 Weakness (principal); Z53.21 Procedure and treatment not carried out due to patient leaving prior to being seen by health care provider ==

== ENCOUNTER 2022-01-23 12:07 | Emergency (ER) | payer MEDICARE, MEDICAID ==
[~2022-01-23] VITALS: Ht 195.6 cm; Wt 100.0 kg
[2022-01-23 12:18] VITALS: BP 122/77
[2022-01-23] MEDS ORDERED: LORazepam 1 MG tablet PO ONE (13:15)
== END 2022-01-23 13:20 | disposition home or self-care (01) ==
LOC: ER 12:08
DX: F15.959 Other stimulant use, unspecified with stimulant-induced psychotic disorder, unspecified (principal); F31.9 Bipolar disorder, unspecified; F12.10 Cannabis abuse, uncomplicated; F15.10 Other stimulant abuse, uncomplicated; F11.10 Opioid abuse, uncomplicated; Z59.00 Homelessness unspecified
CPT/HCPCS: 99283

== ENCOUNTER 2022-01-24 11:39 | Emergency (ER) | payer MEDICARE, MEDICAID ==
[~2022-01-24] VITALS: Ht 195.6 cm; Wt 104.5 kg
[2022-01-24 12:06] VITALS: BP 111/73
== END 2022-01-24 15:16 | disposition left against medical advice (07) ==
LOC: ER 11:40
DX: R45.851 Suicidal ideations (principal); Z53.21 Procedure and treatment not carried out due to patient leaving prior to being seen by health care provider

== ENCOUNTER 2022-01-31 14:28 | Emergency (ER) | payer MEDICARE, MEDICAID ==
[~2022-01-31] VITALS: Ht 195.6 cm; Wt 102.3 kg
[2022-01-31 14:43] VITALS: BP 128/75
== END 2022-01-31 15:02 | disposition left against medical advice (07) ==
LOC: ER 14:28
DX: R44.3 Hallucinations, unspecified (principal); Z53.21 Procedure and treatment not carried out due to patient leaving prior to being seen by health care provider

== ENCOUNTER 2022-02-01 02:36 | Emergency (ER) | payer MEDICARE, MEDICAID ==
[~2022-02-01] VITALS: Ht 188 cm; Wt 104.5 kg
[2022-02-01 03:01] VITALS: BP 119/75
== END 2022-02-01 04:13 | disposition left against medical advice (07) ==
LOC: ER 02:36
DX: R45.851 Suicidal ideations (principal); Z53.21 Procedure and treatment not carried out due to patient leaving prior to being seen by health care provider

== ENCOUNTER 2022-03-10 08:38 | Emergency (ER) | payer MEDICARE, MEDICAID ==
[~2022-03-10] VITALS: Ht 167.6 cm; Wt 100.0 kg
[2022-03-10 08:44] VITALS: BP 103/65
== END 2022-03-10 13:57 | disposition left against medical advice (07) ==
LOC: ER 08:39
DX: T63.301A Toxic effect of unspecified spider venom, accidental (unintentional), initial encounter (principal); Z53.21 Procedure and treatment not carried out due to patient leaving prior to being seen by health care provider; Y92.89 Other specified places as the place of occurrence of the external cause

== ENCOUNTER 2022-03-11 22:47 | Emergency (ER) | payer MEDICARE, MEDICAID ==
[~2022-03-11] VITALS: Ht 195.6 cm; Wt 100.0 kg
[2022-03-11 22:55] VITALS: BP 120/79
[2022-03-12] MEDS ORDERED: SULF1TAB49 PO ×2 (02:15→22:43)
== END 2022-03-11 23:50 | disposition left against medical advice (07) ==
LOC: ER 22:47
DX: L02.31 Cutaneous abscess of buttock (principal); Z53.21 Procedure and treatment not carried out due to patient leaving prior to being seen by health care provider

== ENCOUNTER 2022-03-12 01:24 | Emergency (ER) | payer MEDICARE, MEDICAID ==
[~2022-03-12] VITALS: Ht 195.6 cm; Wt 100.0 kg
[2022-03-12] MEDS ORDERED: ondansetron 4mg rapidly disintigrating tab PO ONE (01:40)
[2022-03-12] MEDS ORDERED: sulfamethoxazole/trimethoprim DS (800/160mg) tablet PO ONE (01:40)
[2022-03-12] MEDS ORDERED: bacitracin 15gm ointment TP ONE (01:40)
[2022-03-12] MEDS ORDERED: TETanus/Pertussis (Acell)/Diphther VAC/PF (Tdap-Adult) 0.5ml syringe IMVAC ONE (01:40)
[2022-03-12] MEDS ORDERED: LIDOcaine 1% w/EPI 1:100,000 30ml vial (MDV) IJ ONE (01:45)
[2022-03-12] MEDS ORDERED: SULF1TAB49 PO ×2 (02:15→22:43)
--- NOTE | 2022-03-12 02:33 | NUR ---
DRESSING APPLIED TO I&D SITE. PT EDUCATION GIVEN ON DRESSING CHANGE
[2022-03-12 03:08] VITALS: BP 125/85
== END 2022-03-12 03:12 | disposition home or self-care (01) ==
LOC: ER 01:24
DX: L02.31 Cutaneous abscess of buttock (principal); F17.200 Nicotine dependence, unspecified, uncomplicated; F31.9 Bipolar disorder, unspecified; F12.10 Cannabis abuse, uncomplicated; F15.10 Other stimulant abuse, uncomplicated; F11.10 Opioid abuse, uncomplicated; Z59.00 Homelessness unspecified; Z79.899 Other long term (current) drug therapy
CPT/HCPCS: 10060; 90471; 90715; 99283; A6449

== ENCOUNTER 2022-03-12 22:19 | Emergency (ER) | payer MEDICARE, MEDICAID ==
[~2022-03-12] VITALS: Ht 195.6 cm; Wt 100.0 kg
[2022-03-12 22:34] VITALS: BP 113/69
[2022-03-12] MEDS ORDERED: SULF1TAB49 PO (22:43)
[2022-03-12] MEDS ORDERED: acetaminophen 325mg tablet ONE (22:55)
[2022-03-12] MEDS ORDERED: acetaminophen 325mg tablet PO ONE (22:55)
== END 2022-03-12 23:14 | disposition home or self-care (01) ==
LOC: ER 22:20
DX: Z02.89 Encounter for other administrative examinations (principal); L02.91 Cutaneous abscess, unspecified; F41.9 Anxiety disorder, unspecified; F31.9 Bipolar disorder, unspecified; F12.90 Cannabis use, unspecified, uncomplicated; F15.90 Other stimulant use, unspecified, uncomplicated; F14.90 Cocaine use, unspecified, uncomplicated; F11.90 Opioid use, unspecified, uncomplicated; Z59.00 Homelessness unspecified; Z79.2 Long term (current) use of antibiotics; Z72.89 Other problems related to lifestyle
CPT/HCPCS: 99283

== ENCOUNTER 2024-03-06 19:19 | Emergency (ER) | payer MEDICARE, MEDICAID ==
[~2024-03-06] VITALS: Ht 195.6 cm; Wt 85.6 kg
[2024-03-06 19:41] LABS: BASOPHILS % (AUTO) 0.5 % (0-1); EOSINOPHILS # (AUTO) 0.2 X10'3 (0-0.9); EOSINOPHILS % (AUTO) 1.5 % (0-6); HEMATOCRIT 34.9 % (42.0-52.0); HEMOGLOBIN 11.6 g/dl (14.0-17.9); LYMPHOCYTES # (AUTO) 1.3 X10'3 (1.1-4.8); LYMPHOCYTES % (AUTO) 12.2 % (21-51); MEAN CORPUSCULAR HEMOGLOBIN 29.8 PG (27.0-31.0); MEAN CORPUSCULAR HGB CONC 33.3 g/dL (33.0-36.5); MEAN CORPUSCULAR VOLUME 89.4 FL (78-98); MEAN PLATELET VOLUME 6.7 FL (7.4-10.4); MONOCYTES % (AUTO) 10.1 % (2-12); NEUTROPHILS # (AUTO) 7.8 X10'3 (1.8-7.7); NEUTROPHILS % (AUTO) 75.7 % (42-75); PLATELET COUNT 437 X10'3 (140-440); RED CELL DISTRIBUTION WIDTH 14.5 % (11.5-14.5); WHITE BLOOD COUNT 10.3 X10'3 (4.5-11.0)
[2024-03-06 20:05] LABS: ALANINE AMINOTRANSFERASE 30 U/L (12-78); ALBUMIN 3.5 G/DL (3.4-5.0); ALKALINE PHOSPHATASE 65 IU/L (46-116); ANION GAP 12 (8-16); ASPARTATE AMINO TRANSFERASE 28 U/L (10-37); BILIRUBIN,TOTAL 0.5 MG/DL (0.1-1.0); BLOOD UREA NITROGEN 16 MG/DL (7-18); BUN/CREATININE RATIO 19.8 (10.0-20.0); CALCIUM 8.6 MG/DL (8.5-10.1); CHLORIDE 107 MMOL/L (99-107); CREATININE 0.81 MG/DL (0.60-1.10); GLUCOSE 100 MG/DL (70-104); SODIUM 142 MMOL/L (135-145); THYROID STIMULATING HORMONE 0.56 ulU/ml (0.34-4.50); TOTAL CARBON DIOXIDE 23.1 MMOL/L (24-32); eCRCL 128 ML/MIN; eGFR > 90 ML/MIN
[2024-03-06 20:07] LABS: ETHANOL < 10 MG/DL (<10); POTASSIUM 2.9 MMOL/L (3.5-5.1)
[2024-03-06] MEDS: potassium Cl 20 mEq SR tablet PO STA (20:25)
[2024-03-06] MEDS: ziprasidone IM 20mg inj **IM only IM ONE (22:14)
[2024-03-07 02:18] LABS: URINE AMPHETAMINE SCREEN POSITIVE (Neg); URINE BARBITUATE SCREEN NEGATIVE (Neg); URINE BENZODIAZEPINES SCREEN NEGATIVE (Neg); URINE CANNABINOID SCREEN NEGATIVE (Neg); URINE COCAINE SCREEN NEGATIVE (Neg); URINE METHADONE SCREEN NEGATIVE (Neg); URINE OPIATE SCREEN NEGATIVE (Neg); URINE PHENCYCLIDINE SCREEN NEGATIVE (Neg)
[2024-03-07 06:52] VITALS: BP 107/68; PULSE 77; RESP 18; TEMP 97.3; O2SAT 96
[2024-03-07 07:16] LABS: ALANINE AMINOTRANSFERASE 26 U/L (12-78); ALBUMIN 2.8 G/DL (3.4-5.0); ALBUMIN/GLOBULIN RATIO 0.8 (1.1-1.5); ALKALINE PHOSPHATASE 55 IU/L (46-116); ANION GAP 7 (8-16); ASPARTATE AMINO TRANSFERASE 23 U/L (10-37); BILIRUBIN,TOTAL 0.5 MG/DL (0.1-1.0); BLOOD UREA NITROGEN 13 MG/DL (7-18); BUN/CREATININE RATIO 21.3 (10.0-20.0); CALCIUM 8.5 MG/DL (8.5-10.1); CHLORIDE 110 MMOL/L (99-107); CREATININE 0.61 MG/DL (0.60-1.10); GLUCOSE 91 MG/DL (70-104); POTASSIUM 3.1 MMOL/L (3.5-5.1); SODIUM 143 MMOL/L (135-145); TOTAL CARBON DIOXIDE 25.7 MMOL/L (24-32); TOTAL PROTEIN 6.3 G/DL (6.4-8.2); eCRCL 170 ML/MIN; eGFR > 90 ML/MIN
[2024-03-07 07:48] LABS: MAGNESIUM 2.3 MG/DL (1.5-2.4)
[2024-03-07] MEDS: magnesium oxide 400mg tablet PO ONE (07:54)
[2024-03-07] MEDS: potassium Cl 20 mEq SR tablet PO ONE (07:54)
[2024-03-07] MEDS: potassium Cl 20 mEq SR tablet PO SCH (12:43)
[2024-03-07] MEDS ORDERED: SERT-434 PO (12:47)
[2024-03-07] MEDS ORDERED: BUSP30TA3 PO (12:47)
[2024-03-07] MEDS ORDERED: MIRT-88 PO (12:47)
[2024-03-07] MEDS ORDERED: OLAN10TA73 (12:47)
== END 2024-03-07 14:21 | disposition home or self-care (01) ==
LOC: ER 19:20
DX: R45.851 Suicidal ideations (principal); Z20.822 Contact with and (suspected) exposure to COVID-19; E87.6 Hypokalemia; F22 Delusional disorders; F41.9 Anxiety disorder, unspecified; F32.A Depression, unspecified; F12.90 Cannabis use, unspecified, uncomplicated; F15.90 Other stimulant use, unspecified, uncomplicated; F14.10 Cocaine abuse, uncomplicated; Z79.82 Long term (current) use of aspirin
CPT/HCPCS: 36415; 80053; 80305; 83735; 84132; 84443; 85025; 87811; 96372; 99285; G0480; J3486; 80320

== ENCOUNTER 2024-03-10 11:20 | Emergency (ER) | payer MEDICARE, MEDICAID ==
[~2024-03-10] VITALS: Ht 195.6 cm; Wt 85.0 kg
[~2024-03-10 11:20] MED LIST changes: +BUSP30TA3 PO; +MIRT-88 PO; +OLAN10TA73; +SERT-434 PO; -SULF1TAB49 PO
[2024-03-10 11:25] VITALS: BP 107/70; PULSE 102; RESP 20; TEMP 98.1; O2SAT 98
[2024-03-10 12:02] LABS: BASOPHILS % (AUTO) 0.4 % (0-1); EOSINOPHILS # (AUTO) 0.3 X10'3 (0-0.9); EOSINOPHILS % (AUTO) 3.2 % (0-6); HEMATOCRIT 36.8 % (42.0-52.0); HEMOGLOBIN 12.1 g/dl (14.0-17.9); LYMPHOCYTES # (AUTO) 1.3 X10'3 (1.1-4.8); LYMPHOCYTES % (AUTO) 15.4 % (21-51); MEAN CORPUSCULAR HEMOGLOBIN 29.7 PG (27.0-31.0); MEAN CORPUSCULAR HGB CONC 32.9 g/dL (33.0-36.5); MEAN CORPUSCULAR VOLUME 90.1 FL (78-98); MEAN PLATELET VOLUME 6.6 FL (7.4-10.4); MONOCYTES # (AUTO) 0.9 X10'3 (0-0.9); NEUTROPHILS # (AUTO) 6.1 X10'3 (1.8-7.7); PLATELET COUNT 438 X10'3 (140-440); RED BLOOD COUNT 4.08 X10'6 (4.70-6.10); RED CELL DISTRIBUTION WIDTH 14.7 % (11.5-14.5); WHITE BLOOD COUNT 8.6 X10'3 (4.5-11.0)
[2024-03-10 12:21] LABS: BILIRUBIN,URINE SMALL (Neg); CLARITY,URINE CLEAR (Clear); COLOR,URINE YELLOW (Yellow); GLUCOSE, URINE NEGATIVE (Neg); KETONES,URINE NEGATIVE (Neg); LEUKOCYTE ESTERASE ,URINE NEGATIVE (Neg); NITRITES, URINE NEGATIVE (Neg); OCCULT BLOOD,URINE TRACE-INTACT (Neg); PROTEIN,URINE NEGATIVE (Neg)
[2024-03-10 12:24] LABS: UA COLLECTION TYPE CLN CATCH MIDSTREAM
[2024-03-10 12:25] LABS: ANION GAP 11 (8-16); BLOOD UREA NITROGEN 15 MG/DL (7-18); BUN/CREATININE RATIO 24.6 (10.0-20.0); CALCIUM 8.7 MG/DL (8.5-10.1); CHLORIDE 105 MMOL/L (99-107); CREATININE 0.61 MG/DL (0.60-1.10); GLUCOSE 102 MG/DL (70-104); POTASSIUM 3.4 MMOL/L (3.5-5.1); SODIUM 141 MMOL/L (135-145); THYROID STIMULATING HORMONE 0.59 ulU/ml (0.34-4.50); TOTAL CARBON DIOXIDE 24.9 MMOL/L (24-32); eCRCL 168 ML/MIN; eGFR > 90 ML/MIN
[2024-03-10 12:26] LABS: ETHANOL < 10 MG/DL (<10)
[2024-03-10 12:29] LABS: BACTERIA,URINE FEW /HPF (Neg); MUCUS STRANDS MANY /LPF (Neg); RBC,URINE 0-2 /HPF (0-2); SQUAMOUS EPITHELIAL CELL,UR FEW /LPF (FEW); WBC,URINE 0-4 /HPF (0-4)
[2024-03-10 12:30] LABS: FINE GRANULAR CAST 0-3 /LPF (NEGATIVE); HYALINE CASTS 0-3 /LPF (NEGATIVE)
[2024-03-10 12:31] LABS: URINE AMPHETAMINE SCREEN POSITIVE (Neg); URINE BARBITUATE SCREEN NEGATIVE (Neg); URINE BENZODIAZEPINES SCREEN NEGATIVE (Neg); URINE CANNABINOID SCREEN NEGATIVE (Neg); URINE COCAINE SCREEN NEGATIVE (Neg); URINE METHADONE SCREEN NEGATIVE (Neg); URINE OPIATE SCREEN NEGATIVE (Neg); URINE PHENCYCLIDINE SCREEN NEGATIVE (Neg)
[2024-03-10] MEDS ORDERED: olanzapine 10mg tablet PO SCH (20:00)
[2024-03-10] MEDS ORDERED: busPIRone 15mg tablet PO SCH (20:00)
[2024-03-10] MEDS ORDERED: mirtazapine 15mg tablet PO SCH (21:00)
[2024-03-11] MEDS ORDERED: sertraline 50mg tablet PO SCH (08:00)
== END 2024-03-10 17:50 | disposition home or self-care (01) ==
LOC: ER 11:20
DX: F25.8 Other schizoaffective disorders (principal); F32.A Depression, unspecified; F28 Other psychotic disorder not due to a substance or known physiological condition; F41.9 Anxiety disorder, unspecified; F15.90 Other stimulant use, unspecified, uncomplicated; F12.90 Cannabis use, unspecified, uncomplicated; F14.90 Cocaine use, unspecified, uncomplicated; F11.90 Opioid use, unspecified, uncomplicated; F10.90 Alcohol use, unspecified, uncomplicated; Z20.822 Contact with and (suspected) exposure to COVID-19; Z79.899 Other long term (current) drug therapy; Z59.00 Homelessness unspecified
CPT/HCPCS: 36415; 80048; 80305; 81001; 84443; 85025; 87811; 99284; G0480; 80320

== ENCOUNTER 2024-03-12 14:48 | Emergency (ER) | payer MEDICARE, MEDICAID | END 2024-03-12 15:10 | disposition left against medical advice (07) | LOC: ER 14:49 | DX: R53.1 Weakness (principal); Z53.21 Procedure and treatment not carried out due to patient leaving prior to being seen by health care provider ==

== ENCOUNTER 2024-07-17 14:45 | Emergency (ER) | payer MEDICARE, MEDICAID ==
[~2024-07-17] VITALS: Ht 198.1 cm; Wt 95.4 kg
[2024-07-17 14:49] VITALS: BP 141/93; PULSE 100; RESP 16; TEMP 98; O2SAT 100
[2024-07-17 15:18] LABS: BASOPHILS # (AUTO) 0.1 X10'3 (0-0.2); BASOPHILS % (AUTO) 0.5 % (0-1); EOSINOPHILS # (AUTO) 0.2 X10'3 (0-0.9); EOSINOPHILS % (AUTO) 2.1 % (0-6); HEMATOCRIT 42.8 % (42.0-52.0); HEMOGLOBIN 14.1 g/dl (14.0-17.9); LYMPHOCYTES # (AUTO) 2.1 X10'3 (1.1-4.8); LYMPHOCYTES % (AUTO) 20.3 % (21-51); MEAN CORPUSCULAR HEMOGLOBIN 28.8 PG (27.0-31.0); MEAN CORPUSCULAR VOLUME 87.2 FL (78-98); MEAN PLATELET VOLUME 6.7 FL (7.4-10.4); MONOCYTES # (AUTO) 0.9 X10'3 (0-0.9); MONOCYTES % (AUTO) 8.4 % (2-12); NEUTROPHILS # (AUTO) 7.1 X10'3 (1.8-7.7); NEUTROPHILS % (AUTO) 68.7 % (42-75); PLATELET COUNT 483 X10'3 (140-440); RED CELL DISTRIBUTION WIDTH 14.8 % (11.5-14.5); WHITE BLOOD COUNT 10.3 X10'3 (4.5-11.0)
[2024-07-17 15:37] LABS: ALBUMIN 3.8 G/DL (3.4-5.0); ANION GAP 7 (8-16); BLOOD UREA NITROGEN 15 MG/DL (7-18); BUN/CREATININE RATIO 18.5 (10.0-20.0); CALCIUM 9.2 MG/DL (8.5-10.1); CHLORIDE 103 MMOL/L (99-107); CREATININE 0.81 MG/DL (0.60-1.10); ETHANOL < 10 MG/DL (<10); GLUCOSE 84 MG/DL (70-104); POTASSIUM 3.7 MMOL/L (3.5-5.1); SODIUM 138 MMOL/L (135-145); THYROID STIMULATING HORMONE 0.96 ulU/ml (0.34-4.50); TOTAL CARBON DIOXIDE 28.4 MMOL/L (24-32); eCRCL 135 ML/MIN; eGFR > 90 ML/MIN
[2024-07-17] MEDS ORDERED: OLAN5TAB5 PO (15:55)
[2024-07-17] MEDS ORDERED: BUSP10TA11 PO (15:55)
[2024-07-17] MEDS ORDERED: SERT50TA PO (15:55)
[2024-07-17 16:04] LABS: BILIRUBIN,URINE NEGATIVE (Neg); CLARITY,URINE CLEAR (Clear); COLOR,URINE YELLOW (Yellow); GLUCOSE, URINE NEGATIVE (Neg); KETONES,URINE NEGATIVE (Neg); LEUKOCYTE ESTERASE ,URINE SMALL (Neg); NITRITES, URINE NEGATIVE (Neg); OCCULT BLOOD,URINE TRACE-INTACT (Neg); PH,URINE 5.5 (4.8-8.0); PROTEIN,URINE NEGATIVE (Neg); UROBILINOGEN,URINE 0.2 E.U/dL (0.2-1.0)
[2024-07-17 16:07] LABS: URINE AMPHETAMINE SCREEN NEGATIVE (Neg); URINE BARBITUATE SCREEN NEGATIVE (Neg); URINE BENZODIAZEPINES SCREEN NEGATIVE (Neg); URINE CANNABINOID SCREEN NEGATIVE (Neg); URINE COCAINE SCREEN NEGATIVE (Neg); URINE METHADONE SCREEN NEGATIVE (Neg); URINE OPIATE SCREEN NEGATIVE (Neg); URINE PHENCYCLIDINE SCREEN NEGATIVE (Neg)
[2024-07-17 16:08] LABS: UA COLLECTION TYPE CLN CATCH MIDSTREAM
[2024-07-17 16:15] LABS: RBC,URINE 0-2 /HPF (0-2); WBC,URINE 0-4 /HPF (0-4)
[2024-07-17 16:16] LABS: BACTERIA,URINE NONE SEEN /HPF (Neg); SQUAMOUS EPITHELIAL CELL,UR NONE SEEN /LPF (FEW)
== END 2024-07-17 16:10 | disposition home or self-care (01) ==
LOC: ER 14:46
DX: F41.9 Anxiety disorder, unspecified (principal); R45.851 Suicidal ideations; T50.902A Poisoning by unspecified drugs, medicaments and biological substances, intentional self-harm, initial encounter; F31.9 Bipolar disorder, unspecified; F29 Unspecified psychosis not due to a substance or known physiological condition; F25.9 Schizoaffective disorder, unspecified; F12.90 Cannabis use, unspecified, uncomplicated; F14.90 Cocaine use, unspecified, uncomplicated; F15.90 Other stimulant use, unspecified, uncomplicated; Z20.822 Contact with and (suspected) exposure to COVID-19; Y92.89 Other specified places as the place of occurrence of the external cause
CPT/HCPCS: 36415; 80048; 80305; 81001; 84443; 85025; 87811; 99283; G0480; 80320

== ENCOUNTER 2024-08-21 14:33 | Emergency (ER) | payer MEDICARE, MEDICAID ==
[~2024-08-21] VITALS: Ht 195.6 cm; Wt 104.8 kg
[2024-08-21 14:42] VITALS: BP 139/84; PULSE 134; RESP 18; TEMP 97.8; O2SAT 97
[2024-08-21] MEDS ORDERED: FLUO20CA39 PO (15:28)
[2024-08-21] MEDS ORDERED: OLAN5TAB5 PO (15:28)
== END 2024-08-21 15:42 | disposition home or self-care (01) ==
LOC: ER 14:33
DX: Z00.00 Encounter for general adult medical examination without abnormal findings (principal); Z76.0 Encounter for issue of repeat prescription; F31.9 Bipolar disorder, unspecified; F41.9 Anxiety disorder, unspecified; F12.90 Cannabis use, unspecified, uncomplicated; F15.90 Other stimulant use, unspecified, uncomplicated; F14.90 Cocaine use, unspecified, uncomplicated; F11.90 Opioid use, unspecified, uncomplicated
CPT/HCPCS: 99281

== ENCOUNTER 2024-09-20 17:08 | Emergency (ER) | payer MEDICARE, MEDICAID ==
[~2024-09-20] VITALS: Ht 195.6 cm; Wt 109.8 kg
[~2024-09-20 17:08] MED LIST changes: +FLUO20CA39 PO; +OLAN5TAB5 PO
[2024-09-20 17:23] VITALS: BP 148/74; PULSE 80; RESP 16; TEMP 98.1; O2SAT 98
[2024-09-20] MEDS ORDERED: HYDR-3686 PO (17:50)
== END 2024-09-20 17:53 | disposition home or self-care (01) ==
LOC: ER 17:08
DX: F41.9 Anxiety disorder, unspecified (principal); F32.A Depression, unspecified; F12.90 Cannabis use, unspecified, uncomplicated; F15.90 Other stimulant use, unspecified, uncomplicated; F14.90 Cocaine use, unspecified, uncomplicated; Z79.899 Other long term (current) drug therapy
CPT/HCPCS: 99281

== ENCOUNTER 2024-09-25 05:02 | Emergency (ER) | payer MEDICARE, MEDICAID ==
[~2024-09-25] VITALS: Ht 226.1 cm; Wt 112.3 kg
[~2024-09-25 05:02] MED LIST changes: -FLUO20CA39 PO; +HYDR-3686 PO; -OLAN5TAB5 PO
[2024-09-25 08:15] LABS: ANION GAP 10 (8-16); BLOOD UREA NITROGEN 18 MG/DL (7-18); CALCIUM 8.6 MG/DL (8.5-10.1); CHLORIDE 102 MMOL/L (99-107); ETHANOL < 10 MG/DL (<10); GLUCOSE 88 MG/DL (70-104); POTASSIUM 3.9 MMOL/L (3.5-5.1); SODIUM 139 MMOL/L (135-145); eCRCL 134 ML/MIN; eGFR 78 ML/MIN
[2024-09-25 08:23] LABS: BASOPHILS % (AUTO) 0.4 % (0-1); EOSINOPHILS # (AUTO) 0.1 X10'3 (0-0.9); EOSINOPHILS % (AUTO) 0.6 % (0-6); HEMATOCRIT 41.5 % (42.0-52.0); HEMOGLOBIN 13.8 g/dl (14.0-17.9); LYMPHOCYTES # (AUTO) 1.5 X10'3 (1.1-4.8); LYMPHOCYTES % (AUTO) 12.1 % (21-51); MEAN CORPUSCULAR HEMOGLOBIN 28.2 PG (27.0-31.0); MEAN CORPUSCULAR HGB CONC 33.1 g/dL (33.0-36.5); MEAN CORPUSCULAR VOLUME 85.1 FL (78-98); MEAN PLATELET VOLUME 7.1 FL (7.4-10.4); MONOCYTES % (AUTO) 8.4 % (2-12); NEUTROPHILS # (AUTO) 9.7 X10'3 (1.8-7.7); NEUTROPHILS % (AUTO) 78.5 % (42-75); PLATELET COUNT 392 X10'3 (140-440); RED BLOOD COUNT 4.88 X10'6 (4.70-6.10); RED CELL DISTRIBUTION WIDTH 15.7 % (11.5-14.5); WHITE BLOOD COUNT 12.3 X10'3 (4.5-11.0)
[2024-09-25 10:25] LABS: URINE AMPHETAMINE SCREEN POSITIVE (Neg); URINE BARBITUATE SCREEN NEGATIVE (Neg); URINE BENZODIAZEPINES SCREEN NEGATIVE (Neg); URINE CANNABINOID SCREEN POSITIVE (Neg); URINE COCAINE SCREEN NEGATIVE (Neg); URINE METHADONE SCREEN NEGATIVE (Neg); URINE OPIATE SCREEN NEGATIVE (Neg); URINE PHENCYCLIDINE SCREEN NEGATIVE (Neg)
[2024-09-25 11:09] VITALS: BP 131/87; PULSE 99; RESP 18; TEMP 98; O2SAT 99
== END 2024-09-25 11:20 | disposition home or self-care (01) ==
LOC: ER 05:03
DX: F19.10 Other psychoactive substance abuse, uncomplicated (principal); F31.9 Bipolar disorder, unspecified; F12.90 Cannabis use, unspecified, uncomplicated; F17.290 Nicotine dependence, other tobacco product, uncomplicated; F15.90 Other stimulant use, unspecified, uncomplicated; F14.90 Cocaine use, unspecified, uncomplicated; F11.90 Opioid use, unspecified, uncomplicated; Z20.822 Contact with and (suspected) exposure to COVID-19
CPT/HCPCS: 36415; 80048; 80305; 85025; 87811; 99283; G0480; 80320

== ENCOUNTER 2024-09-29 22:05 | Emergency (ER) | payer MEDICARE, MEDICAID ==
[~2024-09-29 22:05] MED LIST changes: -HYDR-3686 PO
== END 2024-09-29 22:21 | disposition left against medical advice (07) ==
LOC: ER 22:07
DX: Z00.8 Encounter for other general examination (principal); Z53.21 Procedure and treatment not carried out due to patient leaving prior to being seen by health care provider

== ENCOUNTER 2024-09-29 23:02 | Emergency (ER) | payer MEDICARE, MEDICAID ==
[~2024-09-29] VITALS: Ht 195.6 cm; Wt 105.3 kg
[2024-09-30 00:41] VITALS: BP 128/65; PULSE 110; RESP 18; TEMP 98.9; O2SAT 98
== END 2024-09-30 00:43 | disposition home or self-care (01) ==
LOC: ER 23:03
DX: F88 Other disorders of psychological development (principal); F31.9 Bipolar disorder, unspecified; F41.9 Anxiety disorder, unspecified; F12.90 Cannabis use, unspecified, uncomplicated; F15.90 Other stimulant use, unspecified, uncomplicated; F14.90 Cocaine use, unspecified, uncomplicated; F11.90 Opioid use, unspecified, uncomplicated
CPT/HCPCS: 99281

== ENCOUNTER 2024-09-30 19:14 | Emergency (ER) | payer MEDICARE, MEDICAID ==
[~2024-09-30] VITALS: Ht 195.6 cm; Wt 106.2 kg
[2024-09-30 19:38] VITALS: BP 148/83; PULSE 116; RESP 16; TEMP 97.2; O2SAT 98
== END 2024-09-30 20:12 | disposition left against medical advice (07) ==
LOC: ER 19:15
DX: F25.9 Schizoaffective disorder, unspecified (principal); F29 Unspecified psychosis not due to a substance or known physiological condition; F31.9 Bipolar disorder, unspecified; F41.9 Anxiety disorder, unspecified; F12.90 Cannabis use, unspecified, uncomplicated; F14.90 Cocaine use, unspecified, uncomplicated; F11.90 Opioid use, unspecified, uncomplicated; F15.90 Other stimulant use, unspecified, uncomplicated
CPT/HCPCS: 99281

== ENCOUNTER 2024-10-08 15:09 | Emergency (ER) | payer MEDICARE, MEDICAID ==
[~2024-10-08] VITALS: Ht 195.6 cm; Wt 104.8 kg
[2024-10-08 15:17] VITALS: BP 122/74; PULSE 75; RESP 18; O2SAT 99
[2024-10-08 15:51] VITALS: TEMP 97.7
== END 2024-10-08 15:52 | disposition home or self-care (01) ==
LOC: ER 15:09
DX: F15.90 Other stimulant use, unspecified, uncomplicated (principal); F31.9 Bipolar disorder, unspecified; F41.9 Anxiety disorder, unspecified; F12.90 Cannabis use, unspecified, uncomplicated; F14.90 Cocaine use, unspecified, uncomplicated; F11.90 Opioid use, unspecified, uncomplicated
CPT/HCPCS: 99281

== ENCOUNTER 2025-02-01 18:24 | Emergency (ER) | payer MEDICARE, MEDICAID ==
[~2025-02-01] VITALS: Ht 195.6 cm; Wt 100.0 kg
[2025-02-01 18:54] VITALS: TEMP 97
--- NOTE | 2025-02-01 20:25 | Physician Documentation ---
History of Present Illness ~ Chief Complaint: Ear Discharge Stated Complaint: EAR PAIN Time Seen by MD: 19:38 Primary Medical Doctor: none HPI 54-year-old male well known to the ED complains decrease in hearing in both ears. Patient has a history of cerumen buildup. Denies any ear pain fevers or recent colds Day of Onset: Feb 01, 2025 Medication Reconciliation Allergies: Coded Allergies: No Known Allergies (Unverified , 02/01/25) Scheduled Buspirone HCl (Buspirone HCl), 1 TAB PO BID, (Reported) Mirtazapine (Mirtazapine), 1 TAB PO HS, (Reported) Olanzapine (Olanzapine), BID, (Reported) Sertraline HCl (Sertraline HCl), 2 TAB PO QAM, (Reported) Past Medical History Past Medical History: Anxiety, Bipolar, Depression Past Surgical History: no surgical history Patient History: FHx: diabetes mellitus MOTHER Alcohol Use: Heavy Drug Use: marijuana, methamphetamine, cocaine, heroin Lives with: Other Lives In: Homeless Occupation: disabled Review of Systems All Other Systems at this time: Reviewed and Negative Physical Exam Vital Signs: Temperature: 97.0, Source: Temporal, Heart Rate: 80, Respiratory Rate: 16, BP: 118/72, Pulse Oximetry: 98, Weight: 100.000 Physical Exam General: Alert, no apparent distress. HEENT: PERRL, EOMI, no injection, moist mucous membranes. Bilateral cerumen impaction Neck: Full range of motion. Neurologic: Oriented x4. Psychiatric: Normal mood and affect. Skin: Normal color, warm and dry. No edema, no ecchymosis. Progress Results/Orders Results/Orders Orders - CONRADO NIÑO LEAD SETTER Remove Impacted Ear Wax Uni (02/01/25 ) Remove Impacted Ear Wax Uni (02/01/25 ) Vital Signs 02/01/25 02/01/25 18:54 21:19 Temp 97.0 Pulse 80 78 Resp 16 16 B/P (MAP) 118/72 120/76 Pulse Ox 98 97 Medical Decision Making Findings Bilateral cerumen ear lavage was completed patient reported overall improved symptoms. Departure Disposition: HOME / SELF CARE / HOMELESS Impression: Primary Impression: Cerumen debris on tympanic membrane Additional Impression: Cerumen debris on tympanic membrane of both ears Condition: Improved Referrals: NO PRIMARY CARE PROVIDER (PCP) Signature Scribe Signature: g Attestation: Scribed for Conrado Niño Impregnation Operator by Conrado Hills NP . 02/01/25 23:20 CONRADO NIÑO NP Feb 01, 2025 20:25
[2025-02-01 21:19] VITALS: BP 120/76; PULSE 78; RESP 16; O2SAT 97
[2025-02-02] MEDS ORDERED: CARB15DR91 EACH EAR (17:26)
== END 2025-02-01 21:20 | disposition home or self-care (01) ==
LOC: ER 18:25
DX: H61.23 Impacted cerumen, bilateral (principal); F31.9 Bipolar disorder, unspecified; F41.9 Anxiety disorder, unspecified; F12.90 Cannabis use, unspecified, uncomplicated; F15.90 Other stimulant use, unspecified, uncomplicated; F14.90 Cocaine use, unspecified, uncomplicated; F10.90 Alcohol use, unspecified, uncomplicated; Y90.9 Presence of alcohol in blood, level not specified; Z59.00 Homelessness unspecified
CPT/HCPCS: 69209; 99282

== ENCOUNTER 2025-02-02 14:52 | Emergency (ER) | payer MEDICARE, MEDICAID ==
[~2025-02-02] VITALS: Ht 195.6 cm; Wt 103.0 kg
[2025-02-02 15:14] VITALS: BP 109/71; PULSE 71; RESP 16; TEMP 97.8; O2SAT 97
--- NOTE | 2025-02-02 17:00 | Physician Documentation ---
History of Present Illness ~ Chief Complaint: Ear Pain Stated Complaint: UNABLE TO HEAR Time Seen by MD: 16:49 Primary Medical Doctor: none Source: patient Mode of Arrival: Ambulatory Exam Limitations: no limitations HPI This is a 54-year-old male who presents complaining of feeling like he can not hear well. He was here yesterday and had ear lavage with large amount of cerumen removed. He states no improvement. Medication Reconciliation Allergies: Coded Allergies: No Known Allergies (Unverified , 02/01/25) Scheduled Buspirone HCl (Buspirone HCl), 1 TAB PO BID, (Reported) Mirtazapine (Mirtazapine), 1 TAB PO HS, (Reported) Olanzapine (Olanzapine), BID, (Reported) Sertraline HCl (Sertraline HCl), 2 TAB PO QAM, (Reported) Scheduled PRN Carbamide Peroxide (Debrox), 5 DROP EACH EAR Q12H PRN for ear wax removal Past Medical History Past Medical History: Anxiety, Bipolar, Depression Past Surgical History: no surgical history Patient History: FHx: diabetes mellitus MOTHER Smoking Status: Current every day smoker Alcohol Use: Heavy Drug Use: marijuana, methamphetamine ( has not used for months), cocaine, heroin Lives with: Other Lives In: Homeless Occupation: disabled Review of Systems All Other Systems at this time: Reviewed and Negative ROS As stated above in the HPI, otherwise all systems are reviewed and negative. Physical Exam Vital Signs: Temperature: 97.8, Source: Temporal, Heart Rate: 71, Respiratory R ate: 16, BP: 109/71, Pulse Oximetry: 97, Weight: 102.950 Oxygen Flow Rate: 0 Pulse Oximetry Reflects: adequate oxygenation Physical Exam General: Awake, alert, oriented. No apparent distress Neck: Supple. Normal range of motion. HEENT: Normocephalic. Trachea midline. Pupils equal and reactive. No pain with manipulation of the pinnae. Bilateral ears with large amounts of cerumen that obstruct view of his tympanic membrane. Respiratory: Lungs are clear on the right. Mild wheezing on the left with exhalation. Chest: Normal shape and size. No accessory muscle use. Cardiovascular: Regular rate and rhythm. S1-S2. No murmur, gallop, rub. Extremities: No lower extremity edema, cyanosis or clubbing. Neurologic: Alert and oriented x4. Nonfocal Psychiatric: Normal mood and affect. Skin: Normal color. Warm and dry. Progress Results/Orders Results/Orders Orders - ALINA BUSTAMANTE NP Ear Procedure (02/02/25 ) Vital Signs 02/02/25 15:14 Temp 97.8 Pulse 71 Resp 16 B/P (MAP) 109/71 Pulse Ox 97 O2 Flow Rate 0 Medical Decision Making Additional info obtained from: old records Findings This is a 54-year-old male with recent ER visit from yesterday which was reviewe d that showed cerumen impaction. His ears were irrigated at that time. He reports no improvement. Continues to sound like he is underwater and having difficulty hearing. Physical exam he continues to have a cerumen impaction. His ears were again irrigated with minimal improvement. He is being discharged home with Debrox ear wax removal. Educated on its use. There is no pain. Low clinical suspicion for otitis media/externa or other acute processes. Ear Diff. Dx: Considerations: Include: Cerumen impaction, Foreign body, Otitis externa, Otitis media, Perforation, Referred pain-dental, Referred pain-sinusi tis, Referred pain-TMJ syn. Departure Time of Disposition: 17:23 Disposition: 01 HOME / SELF CARE / HOMELESS Impression: Primary Impression: Cerumen debris on tympanic membrane of both ears Condition: Stable Discharge Instructions: Earache, Adult Additional Instructions: There is still ear wax in your ears. Please use the prescribed ear wax removal kit. Return for new or worsening symptoms. Follow up with primary care provider. Return for new or worsening symptoms. Referrals: NO PRIMARY CARE PROVIDER (PCP) Prescriptions Carbamide Peroxide (Debrox) 6.5 % Drops 5 DROP EACH EAR Q12H PRN for ear wax removal, #15 ML 0 Refills Prov: ALINA BUSTAMANTE NP 02/02/25 Education Educated: Patient Educated regarding: diagnosis, treatment, need for follow up Signature Scribe Signature: No scribe Attestation: The note accurately reflects work and decisions made by me.Alina Bustamante - LUIGI 02/02/25 18:17 This note was created with the assistance of voice recognition software whereby errors in grammar, syntax, and/or spelling may have occurred despite active proofreading efforts by the author. Please do not hesitate to contact the provider for clarification or for questions regarding the content of this document. ALINA BUSTAMANTE NP Feb 02, 2025 17:00
[2025-02-02] MEDS ORDERED: CARB15DR91 EACH EAR (17:26)
== END 2025-02-02 17:40 | disposition home or self-care (01) ==
LOC: ER 14:52
DX: H61.23 Impacted cerumen, bilateral (principal); F31.9 Bipolar disorder, unspecified; F17.200 Nicotine dependence, unspecified, uncomplicated; F12.90 Cannabis use, unspecified, uncomplicated; F41.9 Anxiety disorder, unspecified; F15.90 Other stimulant use, unspecified, uncomplicated; F14.90 Cocaine use, unspecified, uncomplicated; F11.90 Opioid use, unspecified, uncomplicated; F10.90 Alcohol use, unspecified, uncomplicated; Z59.00 Homelessness unspecified; Y90.9 Presence of alcohol in blood, level not specified
CPT/HCPCS: 69209; 99282

== ENCOUNTER 2025-02-13 14:40 | Emergency (ER) | payer MEDICARE, MEDICAID ==
[~2025-02-13] VITALS: Ht 195.6 cm; Wt 103.0 kg
[~2025-02-13 14:40] MED LIST changes: +CARB15DR91 EACH EAR
[2025-02-13 14:49] VITALS: BP 106/68; PULSE 88; RESP 14; TEMP 98.9; O2SAT 99
--- NOTE | 2025-02-13 15:18 | Physician Documentation ---
History of Present Illness ~ Chief Complaint: Anxiety Stated Complaint: ANXIETY Time Seen by MD: 14:56 Primary Medical Doctor: none HPI This patient who is very well known to this ED presents stating that he smoked marijuana this afternoon feels paranoid like he is going to" drop and go to hell." Says that it makes him feel like he used to when he used meth. Day of Onset: Feb 13, 2025 Medication Reconciliation Allergies: Coded Allergies: No Known Allergies (Unverified , 02/13/25) Scheduled Buspirone HCl (Buspirone HCl), 1 TAB PO BID, (Reported) Mirtazapine (Mirtazapine), 1 TAB PO HS, (Reported) Olanzapine (Olanzapine), BID, (Reported) Sertraline HCl (Sertraline HCl), 2 TAB PO QAM, (Reported) Scheduled PRN Carbamide Peroxide (Debrox), 5 DROP EACH EAR Q12H PRN for ear wax removal Past Medical History Past Medical History: Anxiety, Bipolar, Depression Past Surgical History: no surgical history Patient History: FHx: diabetes mellitus MOTHER Alcohol Use: Heavy Drug Use: marijuana, methamphetamine, cocaine, heroin Lives with: Other Lives In: Homeless Occupation: disabled Physical Exam Vital Signs: Temperature: 98.9, Heart Rate: 88, Respiratory Rate: 14, BP: 106/68, Pulse Oximetry: 99, Weight: 103.000 Oxygen Flow Rate: 0 Progress Results/Orders Results/Orders Vital Signs 02/13/25 14:49 Temp 98.9 Pulse 88 Resp 14 B/P (MAP) 106/68 Pulse Ox 99 O2 Flow Rate 0 Medical Decision Making Findings Patient does not present acutely ill I reassured the patient that his paranoia is likely a side effect from marijuana ingestion. We will advise him to go home rest drink adequate fluids and stopped using marijuana Differential Dx:Considerations: Include: Alcohol abuse, Anxiety, Bipolar disorder, Conversion disorder, Depression, Encephaloathy, Homicidal, Panic disorder, Personality disorder, Schizophrenia, Substance abuse, Suicidal, Other Departure Disposition: 01 HOME / SELF CARE / HOMELESS Impression: Primary Impression: Anxiety attack Condition: Stable Discharge Instructions: Panic Attack, Preventing Marijuana Misuse Referrals: NO PRIMARY CARE PROVIDER (PCP) Signature Scribe Signature: f Attestation: Scribed for Conrado Niño Senior Grant Writer by Conrado Hills NP . 02/13/25 17:55 CONRADO NIÑO NP Feb 13, 2025 15:18
== END 2025-02-13 15:45 | disposition home or self-care (01) ==
LOC: ER 14:40
DX: F41.0 Panic disorder [episodic paroxysmal anxiety] (principal); F31.9 Bipolar disorder, unspecified; F12.90 Cannabis use, unspecified, uncomplicated; F15.90 Other stimulant use, unspecified, uncomplicated; F14.90 Cocaine use, unspecified, uncomplicated; F10.90 Alcohol use, unspecified, uncomplicated; Z79.899 Other long term (current) drug therapy; Y90.9 Presence of alcohol in blood, level not specified
CPT/HCPCS: 99283

== ENCOUNTER 2025-02-18 17:00 | Emergency (ER) | payer MEDICARE, MEDICAID ==
[~2025-02-18] VITALS: Ht 195.6 cm; Wt 99.8 kg
[2025-02-18 17:13] VITALS: BP 121/86; PULSE 93; RESP 18; TEMP 98.2; O2SAT 98
--- NOTE | 2025-02-18 17:50 | Physician Documentation ---
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 Patient reports rece ntly diagnosed with ADHD and started on an ADHD patient in the last week. Patient reports no suicidal ideation or homicidal ideation. Patient reports no auditory hallucinations. Medication Reconciliation Allergies: Coded Allergies: No Known Allergies (Unverified , 02/13/25) Scheduled Buspirone HCl (Buspirone HCl), 1 TAB PO BID, (Reported) Hydroxyzine Hcl (Atarax), 1 TAB PO Q8H Mirtazapine (Mirtazapine), 1 TAB PO HS, (Reported) Olanzapine (Olanzapine), BID, (Reported) Sertraline HCl (Sertraline HCl), 2 TAB PO QAM, (Reported) Scheduled PRN Carbamide Peroxide (Debrox), 5 DROP EACH EAR Q12H PRN for ear wax removal Past Medical History Past Medical History: Anxiety, Bipolar, Depression Past Surgical History: no surgical history Patient History: FHx: diabetes mellitus MOTHER Alcohol Use: Heavy Drug Use: marijuana, methamphetamine, cocaine, heroin Lives with: Other Lives In: Homeless Occupation: disabled Review of Systems ROS As stated above in the HPI, otherwise all systems are reviewed and negative. Physical Exam Vital Signs: Temperature: 98.2, Source: Temporal, Heart Rate: 93, Respiratory Rate: 18, BP: 121/86, Pulse Oximetry: 98, Weight: 99.800 Oxygen Flow Rate: 0 Physical Exam VITALS: Reviewed and as above. GENERAL: Alert, nontoxic appearing, no apparent distress. RESPIRATORY: No increased work of breathing, no respiratory distress, speaking in full clear sentences, clear lung sounds in all [place] CV: Regular rate and rhythm no murmur PSYCH: Anxious appearing, no statements of SI or HI Progress Results/Orders Results/Orders Completed Orders - RINA ROSA Hydroxyzine Tablet (Atarax Tablet) (02/18/25 17:45) Medications Received in ER Medications (Trade) Dose Ordered Sig/Ranjan Route PRN Reason Start Time Stop Time Status Last Admin Dose Admin (Atarax tablet) 25 mg ONCE ONCE PO 02/18/25 17:45 02/18/25 17:46 DC 02/18/25 18:06 25 MG Vital Signs 02/18/25 17:13 Temp 98.2 Pulse 93 Resp 18 B/P (MAP) 121/86 Pulse Ox 98 O2 Flow Rate 0 Medical Decision Making Findings This is a 54-year-old male presented with feelings of paranoia and anxiety after starting a new medication. Given onset of symptoms associated with a new medication prescribed for ADHD that has suspected symptoms are related to this medication change, plan is to have patient stop taking this medication, patient will be prescribed Atarax for anxiety. Patient is to follow up with primary mental health prescriber for medication adjustment or change. As patient is reporting no SI or HI along with ability to articulate safety plan and plan for food fdc and care he does not meet criteria for 1799 mental health hold. Patient reports feeling otherwise well and physical exam was benign, patient is appropriate for outpatient follow up. Follow up instructions, return to care precautions, and home care instructions discussed with the patient who verbalized understanding. Differential Dx:Considerations: Include: Alcohol abuse, Anxiety, Bipolar disorder, Conversion disorder, Homicidal, Panic disorder, Personality disorder, Schizophrenia, Substance abuse, Suicidal Departure Time of Disposition: 17:51 Disposition: 01 HOME / SELF CARE / HOMELESS Impression: Primary Impression: Mental disorder Condition: Improved Discharge Instructions: Generalized Anxiety Disorder, Adult, Psychosis Additional Instructions: Given the onset of your symptoms with this new medication I suspect this medication to be the cause please stop taking your ADHD medication until you see your primary mental health prescriber. With your mental health prescriber as soon as possible. Please use the prescribed Atarax as needed for anxiety. Please follow up with your primary care provider in the next few days. Please return to the emergency department for any new or worsening concerning symptoms. Referrals: NO PRIMARY CARE PROVIDER (PCP) Prescriptions Hydroxyzine Hcl (Atarax) 25 Mg Tablet 1 TAB PO Q8H for anxiety for 30 Days, #90 TAB 0 Refills Prov: RINA ROSA CEMENT CUTTER 02/18/25 Education Educated: Patient Educated regarding: diagnosis, treatment, prognosis, need for follow up Signature Scribe Signature: No scribe Attestation: The note accurately reflects work and decisions made by me.LUIS E Moore 02/18/25 19:32 RINA ROSA Feb 18, 2025 17:50
[2025-02-18] MEDS ORDERED: HYDR-3686 PO (17:53)
== END 2025-02-18 18:06 | disposition home or self-care (01) ==
LOC: ER 17:00
DX: F99 Mental disorder, not otherwise specified (principal); F41.9 Anxiety disorder, unspecified; F31.9 Bipolar disorder, unspecified; F12.90 Cannabis use, unspecified, uncomplicated; F15.90 Other stimulant use, unspecified, uncomplicated; F11.90 Opioid use, unspecified, uncomplicated; Z88.5 Allergy status to narcotic agent
CPT/HCPCS: 99283; Q0177

== ENCOUNTER 2025-02-23 09:03 | Emergency (ER) | payer MEDICARE, MEDICAID ==
[~2025-02-23] VITALS: Ht 195.6 cm; Wt 96.5 kg
[~2025-02-23 09:03] MED LIST changes: +HYDR-3686 PO
--- NOTE | 2025-02-23 09:18 | ELECTROCARDIOGRAPH REPORT ---
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
[2025-02-23 10:30] LABS: MEAN PLATELET VOLUME 7.9 FL (7.4-10.4); RED CELL DISTRIBUTION WIDTH 15.2 % (11.5-14.5)
[2025-02-23 10:40] LABS: CREATININE 1.20 MG/DL (0.60-1.10); ETHANOL < 10 MG/DL (<10); TOTAL CARBON DIOXIDE 26.5 MMOL/L (24-32); eCRCL 89 ML/MIN; eGFR 63 ML/MIN
[2025-02-23 10:42] LABS: LEUKOCYTE ESTERASE ,URINE NEGATIVE (Neg); OCCULT BLOOD,URINE TRACE-INTACT (Neg)
[2025-02-23 10:47] LABS: UA COLLECTION TYPE CLN CATCH MIDSTREAM
[2025-02-23 10:49] LABS: NITRITES, URINE NEGATIVE (Neg)
[2025-02-23 10:50] LABS: MUCUS STRANDS MODERATE /LPF (Neg); SQUAMOUS EPITHELIAL CELL,UR NONE SEEN /LPF (FEW)
[2025-02-23 11:04] LABS: URINE AMPHETAMINE SCREEN NEGATIVE (Neg); URINE BARBITUATE SCREEN NEGATIVE (Neg); URINE BENZODIAZEPINES SCREEN NEGATIVE (Neg); URINE CANNABINOID SCREEN POSITIVE (Neg); URINE COCAINE SCREEN NEGATIVE (Neg); URINE METHADONE SCREEN NEGATIVE (Neg); URINE OPIATE SCREEN NEGATIVE (Neg); URINE PHENCYCLIDINE SCREEN NEGATIVE (Neg)
[2025-02-23 11:59] VITALS: BP 110/64; PULSE 71; RESP 18; TEMP 97.6; O2SAT 100
== END 2025-02-23 12:00 | disposition home or self-care (01) ==
LOC: ER 09:04
DX: R00.2 Palpitations (principal); F31.9 Bipolar disorder, unspecified; F12.90 Cannabis use, unspecified, uncomplicated; F17.200 Nicotine dependence, unspecified, uncomplicated; F10.90 Alcohol use, unspecified, uncomplicated; Z59.00 Homelessness unspecified; Z20.822 Contact with and (suspected) exposure to COVID-19; Y90.9 Presence of alcohol in blood, level not specified
CPT/HCPCS: 36415; 80048; 80305; 80329; 81001; 84443; 84484; 85025; 87811; 93005; 99284; G0480; 80320